=== PATIENT | male | born 1995 | race Two or more races ===

== ENCOUNTER 2017-06-28 23:44 | Inpatient (IN) | payer MEDICAID ==
[~2017-06-28] VITALS: Ht 188 cm; Wt 95.3 kg
[2017-06-28 23:41] VITALS: BP 130/61
[2017-06-29 02:00] LABS: BASOPHILS % (AUTO) 0.7 % (0.0-2.0); EOSINOPHILS % (AUTO) 6.5 % (0.0-3.0); LYMPHOCYTES % (AUTO) 20.1 % (20.0-45.0); MEAN CORPUSCULAR HEMOGLOBIN 28.9 PG (27.0-31.0); MEAN CORPUSCULAR HGB CONC 31.3 G/DL (32.0-36.0); MEAN CORPUSCULAR VOLUME 92 FL (80-99); MEAN PLATELET VOLUME 6.6 FL (6.5-10.1); MONOCYTES % (AUTO) 7.4 % (1.0-10.0); NEUTROPHILS % (AUTO) 65.3 % (45.0-75.0); PLATELET COUNT 339 K/UL (150-450); RED BLOOD COUNT 4.64 M/UL (4.70-6.10); RED CELL DISTRIBUTION WIDTH 13.4 % (11.6-14.8); WHITE BLOOD COUNT 9.9 K/UL (4.8-10.8)
[2017-06-29 02:16] LABS: ALANINE AMINOTRANSFERASE 19 U/L (3-41); ALBUMIN/GLOBULIN RATIO 1.1 (1.0-2.7); ANION GAP 12 (5-15); ASPARTATE AMINO TRANSFERASE 22 U/L (5-40); CALCIUM 9.3 mg/dL (8.6-10.2); CARBON DIOXIDE 28 mEQ/L (20-30); CHLORIDE 100 mEQ/L (98-107); CREATININE 0.6 mg/dL (0.7-1.2); GLOMERULAR FILTRATION RATE > 60 mL/min (>60); HEMOLYSIS 3; POTASSIUM 3.9 mEQ/L (3.4-4.9); SODIUM 140 mEQ/L (135-145); TOTAL PROTEIN 7.9 g/dL (6.6-8.7); TROPONIN I < 0.30 ng/mL (<=0.30)
[2017-06-29 02:26] LABS: CKMB 9.9 ng/mL (< 6.7)
[2017-06-29] MEDS ORDERED: HYDROmorphone 1mg/ml Carpuject IVP ONE (02:30)
[2017-06-29] MEDS ORDERED: UNOBMED (04:21)
[2017-06-29 04:45] VITALS: BP 121/60
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
[2017-06-29] MEDS ORDERED: LORazepam Inj 2mg/ml 1ml IV PRN (05:45)
[2017-06-29] MEDS ORDERED: Miralax 17gm pkt ORAL PRN (05:45)
[2017-06-29] MEDS ORDERED: Zolpidem 5mg tab ORAL PRN (05:45)
[2017-06-29] MEDS ORDERED: Mylanta II UD 30ml ORAL PRN (05:45)
[2017-06-29 06:00] LABS: KETONES,URINE NEGATIVE (NEGATIVE); LEUKOCYTE ESTERASE ,URINE 3+ (NEGATIVE); NITRITE,URINE NEGATIVE (NEGATIVE); PH,URINE 8 (4.5-8.0); PROTEIN,URINE 2+ (NEGATIVE); UROBILINOGEN,URINE NORMAL MG/DL (0.0-1.0)
[2017-06-29 06:13] LABS: APPEARANCE,URINE TURBID
[2017-06-29 06:14] LABS: BACTERIA,URINE MANY /HPF; WBC,URINE TNTC /HPF (0 - 0)
[2017-06-29] MEDS: HYDROmorphone 1mg/ml Carpuject IVP PRN ×6 (07:50→23:32)
[2017-06-29] MEDS: DiphenhydrAMINE 50mg/ml Inj IVP PRN ×3 (07:50→20:23)
[2017-06-29 08:00] VITALS: BP 107/61
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
[2017-06-29] MEDS: Heparin 5000 units/ml inj SUBQ SCH ×2 (10:15→20:24)
[2017-06-29 12:00] VITALS: BP 95/45
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
[2017-06-29 16:00] VITALS: BP 113/52
--- NOTE | 2017-06-29 16:18 | Consultation ---
Consult Note Consult Note id dic # [id number] BENJAMIN POTTER M.D. Jun 29, 2017 16:18
[2017-06-29 20:00] VITALS: BP 116/48
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
[2017-06-30] VITALS: BP 107/69
[2017-06-30] MEDS: HYDROmorphone 1mg/ml Carpuject IVP PRN ×7 (02:40→21:13)
[2017-06-30] MEDS: DiphenhydrAMINE 50mg/ml Inj IVP PRN ×4 (02:41→21:12)
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
[2017-06-30 04:00] VITALS: BP 106/54
[2017-06-30 08:00] VITALS: BP 122/62
--- NOTE | 2017-06-30 08:41 | General Progress Note ---
Progress Note Progress Note No further bleeding from stomal edge. If bleeding recurs, silver nitrate small applicator may control and stop bleeding. KIKA WEBBER Jun 30, 2017 08:41
--- NOTE | 2017-06-30 08:46 | Consultation ---
DATE OF CONSULTATION: INFECTIOUS DISEASES CONSULTATION CONSULTING PHYSICIAN: Ac Manuel M.D. REQUESTING PHYSICIAN: Salena Bonilla M.D. Reason For Consultation: Evaluation of the patient for possible wound infection and antibiotic management. History Of Present Illness: The patient is an unfortunate 22-year-old male with multiple medical problems as listed below, who was admitted to this medical center for management of the wound. The patient is not having any discharge from the area, fever, or chills. Infectious Diseases consultation has been requested for further evaluation of the patient for possible need for antibiotic treatment. PAST MEDICAL HISTORY: 1. . 2. Dysuria with incontinence requiring Mackay catheter. MEDICATIONS: Currently off antibiotics. ALLERGIES: Cephalexin and morphine. FAMILY HISTORY: Noncontributory. Review Of Systems: A 10-point review was done and except what is mentioned has been negative. PHYSICAL EXAMINATION: Vital Signs: Temperature 97.6 degrees, blood pressure 121/60, pulse 66, and respiratory rate 18. HEENT: No pale conjunctivae. No icterus. NECK: No lymphadenopathy. CHEST: Clear. HEART: S1 and S2. ABDOMEN: Soft. GENITOURINARY: Mackay catheter in place. EXTREMITIES: No cyanosis. Skin: The patient has stage IV decubitus in the sacral area. No discharge. No exudate. Assessment: The patient is a 22-year-old male with multiple medical problems as listed above, who has 1. Chronic sacral decubitus stage IV without signs of infection. 2. The patient is afebrile. Labs show white blood cells 9.9. PLAN: 1. We will monitor the patient off of antibiotics. 2. The patient may benefit from wound VAC placement. 3. Plastic surgery consultation. 4. Monitor the patient's clinical course and labs. 5. Based on those, we will do further recommendations. Thank you, Dr. Bonilla, for allowing me to participate in the care of this patient. I will follow the patient with you during this hospitalization. Ac Manuel M.D. DR: PHOEBE JOB#: [id number] CC:
[2017-06-30] MEDS: Heparin 5000 units/ml inj SUBQ SCH ×2 (08:57→21:14)
[2017-06-30 09:12] LABS: BASOPHILS % (AUTO) 0.7 % (0.0-2.0); EOSINOPHILS % (AUTO) 9.6 % (0.0-3.0); LYMPHOCYTES % (AUTO) 26.8 % (20.0-45.0); MEAN CORPUSCULAR HEMOGLOBIN 29.3 PG (27.0-31.0); MEAN CORPUSCULAR HGB CONC 31.7 G/DL (32.0-36.0); MEAN CORPUSCULAR VOLUME 92 FL (80-99); MEAN PLATELET VOLUME 7.1 FL (6.5-10.1); MONOCYTES % (AUTO) 8.6 % (1.0-10.0); NEUTROPHILS % (AUTO) 54.2 % (45.0-75.0); PLATELET COUNT 255 K/UL (150-450); RED BLOOD COUNT 3.99 M/UL (4.70-6.10); RED CELL DISTRIBUTION WIDTH 13.5 % (11.6-14.8); WHITE BLOOD COUNT 7.3 K/UL (4.8-10.8)
[2017-06-30 09:28] LABS: ALANINE AMINOTRANSFERASE 15 U/L (3-41); ALBUMIN/GLOBULIN RATIO 1.1 (1.0-2.7); ANION GAP 15 (5-15); ASPARTATE AMINO TRANSFERASE 19 U/L (5-40); CALCIUM 9.4 mg/dL (8.6-10.2); CARBON DIOXIDE 27 mEQ/L (20-30); CHLORIDE 98 mEQ/L (98-107); CREATININE 0.5 mg/dL (0.7-1.2); GLOMERULAR FILTRATION RATE > 60 mL/min (>60); HEMOLYSIS 2; SODIUM 140 mEQ/L (135-145); TOTAL PROTEIN 6.8 g/dL (6.6-8.7)
--- NOTE | 2017-06-30 10:45 | GI Progress Note ---
Assessment/Plan Problems: (1) Anemia ICD Codes: D64.9 - Anemia, unspecified SNOMED: 084927441 (2) Ostomy nurse consultation ICD Codes: Z71.89 - Other specified counseling SNOMED: 702692827, 320586121 Status: stable Status Narrative Discussed with Dr. Encinas. Assessment/Plan surgical recs noted >> no intervention at this time, patient educated on wound care. ostomy care daily/prn frequent turn q2 hours monitor H&H, prn transfusions anemia work up abx fu labs Subjective Subjective no recurrent bleed from ostomy site Objective Last 24 Hour Vital Signs Date Time Temp Pulse Resp B/P (MAP) Pulse Ox O2 Delivery O2 Flow Rate FiO2 06/30/17 08:00 97.7 57 18 122/62 97 Room Air 06/30/17 04:00 98.6 57 20 106/54 97 Room Air 06/30/17 00:00 99.0 61 18 107/69 97 Room Air 06/29/17 20:00 98.4 63 18 116/48 98 Room Air 06/29/17 16:00 97.7 65 18 113/52 97 Room Air 06/29/17 12:00 97.9 64 17 95/45 96 Room Air Laboratory Tests Test 06/30/17 09:00 White Blood Count 7.3 K/UL (4.8-10.8) Red Blood Count 3.99 M/UL (4.70-6.10) L Hemoglobin 11.7 G/DL (14.2-18.0) L Hematocrit 36.9 % (42.0-52.0) L Mean Corpuscular Volume 92 FL (80-99) Mean Corpuscular Hemoglobin 29.3 PG (27.0-31.0) Mean Corpuscular Hemoglobin Concent 31.7 G/DL (32.0-36.0) L Red Cell Distribution Width 13.5 % (11.6-14.8) Platelet Count 255 K/UL (150-450) Mean Platelet Volume 7.1 FL (6.5-10.1) Neutrophils (%) (Auto) 54.2 % (45.0-75.0) Lymphocytes (%) (Auto) 26.8 % (20.0-45.0) Monocytes (%) (Auto) 8.6 % (1.0-10.0) Eosinophils (%) (Auto) 9.6 % (0.0-3.0) H Basophils (%) (Auto) 0.7 % (0.0-2.0) Sodium Level 140 mEQ/L (135-145) Potassium Level 4.0 mEQ/L (3.4-4.9) Chloride Level 98 mEQ/L (98-107) Carbon Dioxide Level 27 mEQ/L (20-30) Anion Gap 15 (5-15) Blood Urea Nitrogen 13 mg/dL (7-23) Creatinine 0.5 mg/dL (0.7-1.2) L Estimat Glomerular Filtration Rate > 60 mL/min (>60) Glucose Level 103 mg/dL (74-106) Calcium Level 9.4 mg/dL (8.6-10.2) Total Bilirubin < 0.2 mg/dL (0.0-1.2) Aspartate Amino Transf (AST/SGOT) 19 U/L (5-40) Alanine Aminotransferase (ALT/SGPT) 15 U/L (3-41) Alkaline Phosphatase 100 U/L (40-129) Total Protein 6.8 g/dL (6.6-8.7) Albumin 3.6 g/dL (3.5-5.2) Globulin 3.2 g/dL Albumin/Globulin Ratio 1.1 (1.0-2.7) Thyroid Stimulating Hormone (TSH) 2.550 uIU/mL (0.300-4.500) Height (Feet): 6 Height (Inches): 2.00 Weight (Pounds): 210 General Appearance: no apparent distress, alert Cardiovascular: normal rate Respiratory/Chest: normal breath sounds, no respiratory distress Abdominal Exam: other - ostomy Reyna Milton N.P. Jun 30, 2017 10:45
[2017-06-30 12:00] VITALS: BP 132/72
[2017-06-30 16:00] VITALS: BP 130/77
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
[2017-06-30 20:00] VITALS: BP 121/66
--- NOTE | 2017-06-30 20:45 | Wound Care Consultation ---
Wound Assessment Wound Assessment #1: Wound Number: 1 Wound Present on Admission: Yes New Wound: No Status Change of Wound: No Wound Location Body Site Modif: left Wound Location Body Site: heel Wound Type: pressure ulcer Mina Test: Does not Mina Pressure Ulcer Stage: deep tissue injury Wound Thickness: Full Thickness Wound Length: 4.0 Wound Width: 4.0 Wound Depth: utd Percent of Wound Purple/Maroon: 100 Wound Drainage Amount: None Wound Drainage Odor: None/Absent Tissue Surrounding Wound: Intact Wound General Appearance: Reddened - maroon Wound Assessment #2: Wound Number: 2 Wound Present on Admission: Yes New Wound: No Status Change of Wound: No Wound Location Body Site Modif: right Wound Location Body Site: heel Wound Type: pressure ulcer Mina Test: Does not Mina Pressure Ulcer Stage: deep tissue injury Wound Thickness: Full Thickness Wound Length: 4.5 Wound Width: 4.5 Wound Depth: utd Percent of Wound Purple/Maroon: 100 Wound Drainage Amount: None Wound Drainage Odor: None/Absent Tissue Surrounding Wound: Erythemic Wound General Appearance: Reddened - maroon Wound Assessment #3: Wound Number: 3 Wound Present on Admission: Yes New Wound: No Status Change of Wound: No Wound Location Body Site Modif: left, lateral Wound Location Body Site: metatarsal head - 5th Wound Type: pressure ulcer Mina Test: Does not Mina Pressure Ulcer Stage: II Wound Thickness: Partial Thickness Wound Length: 0.5 Wound Width: 0.3 Wound Depth: 0.1 Percent of Wound [place]/Red: 100 Wound Drainage Description: Serosanguineous Wound Drainage Amount: Scant Wound Drainage Odor: None/Absent Tissue Surrounding Wound: Erythemic Wound General Appearance: Reddened, Draining Wound Assessment #4: Wound Number: 4 Wound Present on Admission: Yes New Wound: No Status Change of Wound: No Wound Location Body Site Modif: left, lateral Wound Location Body Site: malleolus/ankle Wound Type: pressure ulcer Mina Test: Does not Mina Pressure Ulcer Stage: III - healing Wound Thickness: Full Thickness Wound Length: 2.5 Wound Width: 1.5 Wound Depth: less than 0.1 Percent of Wound [place]/Red: 100 Wound Drainage Description: Serosanguineous Wound Drainage Amount: Scant Wound Drainage Odor: None/Absent Tissue Surrounding Wound: Erythemic Wound General Appearance: Reddened Wound Assessment #5: Wound Number: 5 Wound Present on Admission: Yes New Wound: No Status Change of Wound: No Wound Location Body Site Modif: left, mid Wound Location Body Site: foot Wound Type: pressure ulcer Mina Test: Does not Mina Pressure Ulcer Stage: deep tissue injury Wound Thickness: Full Thickness Wound Length: 1.0 Wound Width: 1.0 Wound Depth: utd Percent of Wound Purple/Maroon: 100 Wound Drainage Amount: None Wound Drainage Odor: None/Absent Tissue Surrounding Wound: Erythemic Wound General Appearance: Reddened - maroon Wound Assessment #6: Wound Number: 6 Wound Present on Admission: Yes New Wound: No Status Change of Wound: No Wound Location Body Site Modif: left Wound Location Body Site: ischial tuberosity Wound Type: pressure ulcer Mina Test: Does not Mina Pressure Ulcer Stage: IV/unstageable Wound Thickness: Full Thickness Wound Length: 4.5 Wound Width: 6.5 Wound Depth: 2.5 Percent of Wound [place]/Red: 90 Percent of Wound Bed Yellow/Wh: 10 Wound Drainage Description: Serosanguineous Wound Drainage Amount: Moderate Wound Drainage Odor: None/Absent Tissue Surrounding Wound: Macerated Wound Undermining at 12:00: 3.5 Wound Undermining at 6:00: 0.5 Wound General Appearance: Reddened, Draining, Muscle Visible Wound Assessment #7: Wound Number: 7 Wound Present on Admission: Yes New Wound: No Status Change of Wound: No Wound Location Body Site Modif: right Wound Location Body Site: ischial tuberosity Wound Type: pressure ulcer Mina Test: Does not Mina Pressure Ulcer Stage: IV/unstageable Wound Thickness: Full Thickness Wound Length: 4.0 Wound Width: 4.0 Wound Depth: 2.0 Percent of Wound [place]/Red: 100 Wound Drainage Description: Serosanguineous Wound Drainage Amount: Moderate Wound Drainage Odor: None/Absent Tissue Surrounding Wound: Macerated Wound General Appearance: Reddened, Draining Wound Assessment #8: Wound Number: 8 Wound Present on Admission: Yes New Wound: No Status Change of Wound: No Wound Location Body Site Modif: mid Wound Location Body Site: sacral Wound Type: pressure ulcer Mina Test: Does not Mina Pressure Ulcer Stage: III - scattered Wound Thickness: Full Thickness Wound Length: 4.0 Wound Width: 5.0 Wound Depth: 0.2 Percent of Wound [place]/Red: 100 Wound Drainage Description: Serosanguineous Wound Drainage Amount: Scant Wound Drainage Odor: None/Absent Tissue Surrounding Wound: Erythemic Wound General Appearance: Reddened, Draining Wound Assessment #9: Wound Number: 9 Wound Present on Admission: Yes New Wound: No Status Change of Wound: No Wound Location Body Site Modif: left Wound Location Body Site: buttocks Wound Type: pressure ulcer Mina Test: Does not Mina Pressure Ulcer Stage: IV/unstageable Wound Thickness: Full Thickness Wound Length: 2.0 Wound Width: 2.0 Wound Depth: 0.2 Percent of Wound [place]/Red: 90 Percent of Wound Bed Yellow/Wh: 10 Wound Drainage Description: Serosanguineous Wound Drainage Amount: Scant Wound Drainage Odor: None/Absent Tissue Surrounding Wound: Macerated Wound General Appearance: Reddened, Draining Wound Assessment #10: Wound Number: 10 Wound Present on Admission: Yes New Wound: No Status Change of Wound: No Wound Location Body Site Modif: right Wound Location Body Site: buttocks Wound Type: pressure ulcer Mina Test: Does not Mina Pressure Ulcer Stage: III Wound Thickness: Full Thickness Wound Length: 1.5 Wound Width: 2.0 Wound Depth: 0.2 Percent of Wound [place]/Red: 100 Wound Drainage Description: Serosanguineous Wound Drainage Amount: Moderate Wound Drainage Odor: None/Absent Tissue Surrounding Wound: Macerated Wound General Appearance: Reddened, Draining Wound Assessment #11: Wound Number: 11 Wound Present on Admission: Yes New Wound: No Status Change of Wound: No Wound Location Body Site Modif: left, right, dorsal, plantar Wound Location Body Site: foot - and toes Wound Type: other Mina Test: Does not Mina Wound Drainage Description: Serosanguineous Wound Drainage Amount: Scant Wound Drainage Odor: None/Absent Wound Assessment #12: Wound Number: 12 Wound Comment #1 Left heel DTI pressure ulcer #2 Right heel DTI pressure ulcer #3 Left lateral 5th metatarsal head stage II pressure ulcer #4 Left lateral malleolus healing stage III pressure ulcer #5 Left lateral mid foot DTI pressure ulcer #6 Sacral scattered stage III pressure ulcer #7 Left buttock stage IV pressure ulcer #8 Right buttock stage III pressure ulcer #9 Left ischial tuberosity stage IV pressure ulcer #10 Right ischial tuberosity stage IV pressure ulcer #11 Left and right plantar and dorsal foot with papules #12 Multiple generalized scar and dry scabs Recommendation -Left lateral malleolus healing stage III pressure ulcer, Sacral scattered stage III pressure ulcer, Left buttock stage IV pressure ulcer, Right buttock stage III pressure ulcer, Left ischial tuberosity stage IV pressure ulcer and Right ischial tuberosity stage IV pressure ulcer, Cleanse with saline, pat dry, apply Triad cream to minal wound area, apply Therahoney to wound bed, apply calcium alginate, cover with bordered gauze daily and PRN soiled/dislodged - Left lateral 5th metatarsal head stage II pressure ulcer, Cleanse with saline, pat dry, apply Triad cream, cover with bordered gauze daily and PRN soiled/dislodged -Local wound care per protocol for DTI -Low air loss mattress -Optimize nutrition -Keep clean and dry -Turn and reposition -Offload both heels -Heel protector on both heels -Assess and f/u accordingly for any changes MARIE CORDOVA RN Jun 30, 2017 20:45
--- NOTE | 2017-06-30 21:08 | Infectious Diseases Prog Note ---
Assessment/Plan Assessment/Plan Assessment: The patient is a 22-year-old male with Chronic sacral decubitus stage IV without signs of infection. afebrile. UCx : GNR : Asymptomatic , colonizer bleeding around ostomy site. Paraplegia Dysuria with incontinence requiring Mackay catheter PLAN: con to monitor off of antibiotics. The patient may benefit from wound VAC placement. Plastic surgery consultation Monitor the patient's clinical course and labs. Subjective Constitutional: Denies: no symptoms, fever, chills, fatigue, anorexia, drenching sweats, other Allergies: Coded Allergies: CEPHALEXIN (Verified Allergy, Unknown, 06/28/17) MORPHINE (Verified Allergy, Unknown, 06/28/17) Objective Vital Signs Last 24 Hour Vital Signs Date Time Temp Pulse Resp B/P (MAP) Pulse Ox O2 Delivery O2 Flow Rate FiO2 06/30/17 20:00 98.6 70 20 121/66 98 Room Air 06/30/17 16:00 98.0 62 20 130/77 96 Room Air 06/30/17 12:00 98.1 58 18 132/72 98 Room Air 06/30/17 08:00 97.7 57 18 122/62 97 Room Air 06/30/17 04:00 98.6 57 20 106/54 97 Room Air 06/30/17 00:00 99.0 61 18 107/69 97 Room Air Height (Feet): 6 Height (Inches): 2.00 Weight (Pounds): 210 HEENT: anicteric Respiratory/Chest: no respiratory distress Cardiovascular: regularly irregular Abdomen: no organomegaly Microbiology Date/Time Source Procedure Growth Status 06/29/17 01:40 Blood Blood Culture - Preliminary NO GROWTH AFTER 24 HOURS Resulted 06/29/17 01:20 Blood Blood Culture - Preliminary NO GROWTH AFTER 24 HOURS Resulted 06/29/17 04:24 Nasal Nares MRSA Culture - Final Staphylococcus Aureus - Mrsa Complete 06/29/17 04:24 Urine,Clean Catch Urine Culture - Preliminary Gram Negative Bacillus 1 Resulted 06/29/17 06:30 Buttock Left Gram Stain - Final Resulted 06/29/17 06:30 Buttock Left Wound Culture Pending Resulted Laboratory Tests Test 06/30/17 09:00 White Blood Count 7.3 K/UL (4.8-10.8) Red Blood Count 3.99 M/UL (4.70-6.10) L Hemoglobin 11.7 G/DL (14.2-18.0) L Hematocrit 36.9 % (42.0-52.0) L Mean Corpuscular Volume 92 FL (80-99) Mean Corpuscular Hemoglobin 29.3 PG (27.0-31.0) Mean Corpuscular Hemoglobin Concent 31.7 G/DL (32.0-36.0) L Red Cell Distribution Width 13.5 % (11.6-14.8) Platelet Count 255 K/UL (150-450) Mean Platelet Volume 7.1 FL (6.5-10.1) Neutrophils (%) (Auto) 54.2 % (45.0-75.0) Lymphocytes (%) (Auto) 26.8 % (20.0-45.0) Monocytes (%) (Auto) 8.6 % (1.0-10.0) Eosinophils (%) (Auto) 9.6 % (0.0-3.0) H Basophils (%) (Auto) 0.7 % (0.0-2.0) Sodium Level 140 mEQ/L (135-145) Potassium Level 4.0 mEQ/L (3.4-4.9) Chloride Level 98 mEQ/L (98-107) Carbon Dioxide Level 27 mEQ/L (20-30) Anion Gap 15 (5-15) Blood Urea Nitrogen 13 mg/dL (7-23) Creatinine 0.5 mg/dL (0.7-1.2) L Estimat Glomerular Filtration Rate > 60 mL/min (>60) Glucose Level 103 mg/dL (74-106) Calcium Level 9.4 mg/dL (8.6-10.2) Total Bilirubin < 0.2 mg/dL (0.0-1.2) Aspartate Amino Transf (AST/SGOT) 19 U/L (5-40) Alanine Aminotransferase (ALT/SGPT) 15 U/L (3-41) Alkaline Phosphatase 100 U/L (40-129) Total Protein 6.8 g/dL (6.6-8.7) Albumin 3.6 g/dL (3.5-5.2) Globulin 3.2 g/dL Albumin/Globulin Ratio 1.1 (1.0-2.7) Thyroid Stimulating Hormone (TSH) 2.550 uIU/mL (0.300-4.500) Current Medications Medications (Trade) Dose Ordered Sig/Pedro Route PRN Reason Start Time Stop Time Status Last Admin Dose Admin Acetaminophen (Tylenol) 650 mg Q4H PRN ORAL fever 06/29/17 05:45 07/29/17 05:44 Al Hydroxide/Mg Hydroxide (Mylanta II) 30 ml Q6H PRN ORAL dyspepsia 06/29/17 05:45 07/29/17 05:44 Baclofen (Lioresal) 10 mg THREE TIMES A DAY PRN ORAL muscle spasm 06/29/17 09:00 07/29/17 08:59 Clotrimazole (Lotrimin) 1 applic EVERY 12 HOURS TOPIC 06/30/17 21:00 07/30/17 20:59 UNV Dextrose (Dextrose 50%) STAT PRN IV Hypoglycemia 06/29/17 05:45 07/29/17 05:44 Diphenhydramine HCl (Benadryl) 25 mg Q6H PRN IVP Itching 06/29/17 08:00 07/29/17 07:59 06/30/17 15:05 Gabapentin (Neurontin) 100 mg THREE TIMES A DAY ORAL 06/29/17 09:00 07/29/17 08:59 06/30/17 17:14 Heparin Sodium (Porcine) (Heparin 5000 units/ml) 5,000 units EVERY 12 HOURS SUBQ 06/29/17 09:00 07/29/17 08:59 06/30/17 08:57 Hydrocortisone (Hydrocortisone) 1 applic Q6H PRN TOPIC Itching 06/30/17 18:00 07/30/17 17:59 Hydromorphone HCl (Dilaudid) 1 mg Q3H PRN IVP For Pain 06/29/17 08:00 07/06/17 07:59 06/30/17 18:15 Lorazepam (Ativan 2mg/ml 1ml) 0.5 mg Q4H PRN IV For Anxiety 06/29/17 05:45 07/06/17 05:44 Ondansetron HCl (Zofran) 4 mg Q6H PRN IVP Nausea & Vomiting 06/29/17 05:45 07/29/17 05:44 Polyethylene Glycol (Miralax) 17 gm HSPRN PRN ORAL Constipation 9/26/17 05:45 07/29/17 05:44 Zolpidem Tartrate (Ambien) 5 mg HSPRN PRN ORAL Insomnia 06/29/17 05:45 07/06/17 05:44 BENJAMIN POTTER M.D. Jun 30, 2017 21:08
[2017-06-30] MEDS: Hydrocortisone 2.5% Oint 30gm TOPIC PRN (21:44)
[2017-07-01] VITALS: BP 103/52
[2017-07-01] MEDS: HYDROmorphone 1mg/ml Carpuject IVP PRN ×8 (00:06→21:57)
[2017-07-01] MEDS: DiphenhydrAMINE 50mg/ml Inj IVP PRN ×4 (03:03→21:57)
[2017-07-01 04:00] VITALS: BP 101/53
[2017-07-01 07:21] LABS: BASOPHILS % (AUTO) 0.6 % (0.0-2.0); EOSINOPHILS % (AUTO) 10.4 % (0.0-3.0); LYMPHOCYTES % (AUTO) 28.7 % (20.0-45.0); MEAN CORPUSCULAR HGB CONC 32.3 G/DL (32.0-36.0); MEAN CORPUSCULAR VOLUME 93 FL (80-99); MEAN PLATELET VOLUME 6.9 FL (6.5-10.1); MONOCYTES % (AUTO) 10.6 % (1.0-10.0); NEUTROPHILS % (AUTO) 49.6 % (45.0-75.0); PLATELET COUNT 276 K/UL (150-450); RED BLOOD COUNT 4.01 M/UL (4.70-6.10); RED CELL DISTRIBUTION WIDTH 13.8 % (11.6-14.8); WHITE BLOOD COUNT 6.3 K/UL (4.8-10.8)
[2017-07-01 07:40] LABS: ANION GAP 15 (5-15); CALCIUM 9.5 mg/dL (8.6-10.2); CARBON DIOXIDE 26 mEQ/L (20-30); CHLORIDE 101 mEQ/L (98-107); CREATININE 0.6 mg/dL (0.7-1.2); GLOMERULAR FILTRATION RATE > 60 mL/min (>60); SODIUM 142 mEQ/L (135-145)
[2017-07-01 07:42] LABS: FERRITIN 62 ng/mL (10-230)
[2017-07-01 08:00] VITALS: BP 111/51
[2017-07-01 08:28] LABS: RETICULOCYTE COUNT 1.9 % (0.0-2.0)
[2017-07-01] MEDS: Heparin 5000 units/ml inj SUBQ SCH ×2 (09:08→20:21)
[2017-07-01 09:09] LABS: HEMOLYSIS 0; IRON 82 ug/dL (59-158); TOTAL IRON BINDING CAPACITY 292 ug/dL (250-400)
--- NOTE | 2017-07-01 09:45 | General Progress Note ---
Progress Note Progress Note Surgery: no bleeding from ostomy site. states he is doing well. standard ostomy care and management. thank you Senthil Armstrong Jul 01, 2017 09:45
--- NOTE | 2017-07-01 11:27 | GI Progress Note ---
Assessment/Plan Problems: (1) Anemia ICD Codes: D64.9 - Anemia, unspecified SNOMED: 743288999 (2) Ostomy nurse consultation ICD Codes: Z71.89 - Other specified counseling SNOMED: 200526052, 700880111 Status: stable Status Narrative Discussed with Dr. Encinas. Assessment/Plan surgical recs noted >> no intervention at this time, patient educated on wound care. ostomy care daily/prn frequent turn q2 hours monitor H&H, prn transfusions anemia work up >> unremarkable abx fu labs Subjective Subjective no recurrent bleed from ostomy site Objective Last 24 Hour Vital Signs Date Time Temp Pulse Resp B/P (MAP) Pulse Ox O2 Delivery O2 Flow Rate FiO2 07/01/17 08:00 97.7 55 18 111/51 97 Room Air 07/01/17 04:00 98.3 64 18 101/53 98 Room Air 07/01/17 00:00 98.4 63 19 103/52 98 Room Air 06/30/17 20:00 98.6 70 20 121/66 98 Room Air 06/30/17 16:00 98.0 62 20 130/77 96 Room Air 06/30/17 12:00 98.1 58 18 132/72 98 Room Air Laboratory Tests Test 07/01/17 05:30 White Blood Count 6.3 K/UL (4.8-10.8) Red Blood Count 4.01 M/UL (4.70-6.10) L Hemoglobin 12.0 G/DL (14.2-18.0) L Hematocrit 37.2 % (42.0-52.0) L Mean Corpuscular Volume 93 FL (80-99) Mean Corpuscular Hemoglobin 30.0 PG (27.0-31.0) Mean Corpuscular Hemoglobin Concent 32.3 G/DL (32.0-36.0) Red Cell Distribution Width 13.8 % (11.6-14.8) Platelet Count 276 K/UL (150-450) Mean Platelet Volume 6.9 FL (6.5-10.1) Neutrophils (%) (Auto) 49.6 % (45.0-75.0) Lymphocytes (%) (Auto) 28.7 % (20.0-45.0) Monocytes (%) (Auto) 10.6 % (1.0-10.0) H Eosinophils (%) (Auto) 10.4 % (0.0-3.0) H Basophils (%) (Auto) 0.6 % (0.0-2.0) Reticulocyte Count 1.9 % (0.0-2.0) Sodium Level 142 mEQ/L (135-145) Potassium Level 4.0 mEQ/L (3.4-4.9) Chloride Level 101 mEQ/L (98-107) Carbon Dioxide Level 26 mEQ/L (20-30) Anion Gap 15 (5-15) Blood Urea Nitrogen 16 mg/dL (7-23) Creatinine 0.6 mg/dL (0.7-1.2) L Estimat Glomerular Filtration Rate > 60 mL/min (>60) Glucose Level 98 mg/dL (74-106) Calcium Level 9.5 mg/dL (8.6-10.2) Iron Level 82 ug/dL (59-158) Total Iron Binding Capacity 292 ug/dL (250-400) Percent Iron Saturation 28 % (15-50) Unsaturated Iron Binding 210 ug/dL (112-346) Ferritin 62 ng/mL (10-230) Vitamin B12 Level 332 pg/mL (211-946) Folate Pending Thyroid Stimulating Hormone (TSH) 3.520 uIU/mL (0.300-4.500) Free Thyroxine 1.44 ng/dL (0.86-1.85) Height (Feet): 6 Height (Inches): 2.00 Weight (Pounds): 210 General Appearance: no apparent distress, alert Cardiovascular: normal rate Respiratory/Chest: normal breath sounds, no respiratory distress Abdominal Exam: soft, other - ostomy site Reyna Milton N.P. Jul 01, 2017 11:27
[2017-07-01 12:00] VITALS: BP 105/44
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
[2017-07-01 16:00] VITALS: BP 108/61
[2017-07-01 20:00] VITALS: BP 93/57
--- NOTE | 2017-07-01 20:19 | Infectious Diseases Prog Note ---
Assessment/Plan Assessment/Plan Assessment: The patient is a 22-year-old male with Chronic sacral decubitus stage IV without signs of infection. afebrile. UCx : ESBL E coli : Asymptomatic , colonizer bleeding around ostomy site. Paraplegia Dysuria with incontinence requiring Mackay catheter PLAN: con to monitor off of antibiotics. The patient may benefit from wound VAC placement. Plastic surgery consultation Monitor the patient's clinical course and labs. Subjective Allergies: Coded Allergies: CEPHALEXIN (Verified Allergy, Unknown, 06/28/17) MORPHINE (Verified Allergy, Unknown, 06/28/17) Objective Vital Signs Last 24 Hour Vital Signs Date Time Temp Pulse Resp B/P (MAP) Pulse Ox O2 Delivery O2 Flow Rate FiO2 07/01/17 20:00 98.1 62 18 93/57 97 Room Air 07/01/17 19:16 97.9 07/01/17 16:00 97.9 61 18 108/61 97 Room Air 07/01/17 12:00 97.7 69 19 105/44 96 Room Air 07/01/17 08:00 97.7 55 18 111/51 97 Room Air 07/01/17 04:00 98.3 64 18 101/53 98 Room Air 07/01/17 00:00 98.4 63 19 103/52 98 Room Air Height (Feet): 6 Height (Inches): 2.00 Weight (Pounds): 210 Microbiology Date/Time Source Procedure Growth Status 06/29/17 01:40 Blood Blood Culture - Preliminary NO GROWTH AFTER 48 HOURS Resulted 06/29/17 01:20 Blood Blood Culture - Preliminary NO GROWTH AFTER 48 HOURS Resulted 06/29/17 04:24 Nasal Nares MRSA Culture - Final Staphylococcus Aureus - Mrsa Complete 06/29/17 04:24 Urine,Clean Catch Urine Culture - Final Klebsiella Pneumoniae Esbl Complete 06/29/17 06:30 Buttock Left Gram Stain - Final Resulted 06/29/17 06:30 Wound Culture - Preliminary Staphylococcus Aureus Resulted 06/29/17 04:24 Rectum VRE Culture - Final Enterococcus Faecium - Vre Complete Laboratory Tests Test 07/01/17 05:30 White Blood Count 6.3 K/UL (4.8-10.8) Red Blood Count 4.01 M/UL (4.70-6.10) L Hemoglobin 12.0 G/DL (14.2-18.0) L Hematocrit 37.2 % (42.0-52.0) L Mean Corpuscular Volume 93 FL (80-99) Mean Corpuscular Hemoglobin 30.0 PG (27.0-31.0) Mean Corpuscular Hemoglobin Concent 32.3 G/DL (32.0-36.0) Red Cell Distribution Width 13.8 % (11.6-14.8) Platelet Count 276 K/UL (150-450) Mean Platelet Volume 6.9 FL (6.5-10.1) Neutrophils (%) (Auto) 49.6 % (45.0-75.0) Lymphocytes (%) (Auto) 28.7 % (20.0-45.0) Monocytes (%) (Auto) 10.6 % (1.0-10.0) H Eosinophils (%) (Auto) 10.4 % (0.0-3.0) H Basophils (%) (Auto) 0.6 % (0.0-2.0) Reticulocyte Count 1.9 % (0.0-2.0) Sodium Level 142 mEQ/L (135-145) Potassium Level 4.0 mEQ/L (3.4-4.9) Chloride Level 101 mEQ/L (98-107) Carbon Dioxide Level 26 mEQ/L (20-30) Anion Gap 15 (5-15) Blood Urea Nitrogen 16 mg/dL (7-23) Creatinine 0.6 mg/dL (0.7-1.2) L Estimat Glomerular Filtration Rate > 60 mL/min (>60) Glucose Level 98 mg/dL (74-106) Calcium Level 9.5 mg/dL (8.6-10.2) Iron Level 82 ug/dL (59-158) Total Iron Binding Capacity 292 ug/dL (250-400) Percent Iron Saturation 28 % (15-50) Unsaturated Iron Binding 210 ug/dL (112-346) Ferritin 62 ng/mL (10-230) Vitamin B12 Level 332 pg/mL (211-946) Folate Pending Thyroid Stimulating Hormone (TSH) 3.520 uIU/mL (0.300-4.500) Free Thyroxine 1.44 ng/dL (0.86-1.85) Current Medications Medications (Trade) Dose Ordered Sig/Pedro Route PRN Reason Start Time Stop Time Status Last Admin Dose Admin Acetaminophen (Tylenol) 650 mg Q4H PRN ORAL fever 06/29/17 05:45 07/29/17 05:44 Al Hydroxide/Mg Hydroxide (Mylanta II) 30 ml Q6H PRN ORAL dyspepsia 06/29/17 05:45 07/29/17 05:44 Baclofen (Lioresal) 10 mg THREE TIMES A DAY PRN ORAL muscle spasm 06/29/17 09:00 07/29/17 08:59 Clotrimazole (Lotrimin) 1 applic EVERY 12 HOURS TOPIC 06/30/17 21:30 07/30/17 21:29 07/01/17 09:05 Dextrose (Dextrose 50%) STAT PRN IV Hypoglycemia 06/29/17 05:45 07/29/17 05:44 Diphenhydramine HCl (Benadryl) 25 mg Q6H PRN IVP Itching 06/29/17 08:00 07/29/17 07:59 07/01/17 16:02 Gabapentin (Neurontin) 100 mg THREE TIMES A DAY ORAL 06/29/17 09:00 07/29/17 08:59 07/01/17 17:38 Heparin Sodium (Porcine) (Heparin 5000 units/ml) 5,000 units EVERY 12 HOURS SUBQ 06/29/17 09:00 07/29/17 08:59 07/01/17 09:08 Hydrocortisone (Hydrocortisone) 1 applic Q6H PRN TOPIC Itching 06/30/17 18:00 07/30/17 17:59 06/30/17 21:44 Hydromorphone HCl (Dilaudid) 1 mg Q3H PRN IVP For Pain 06/29/17 08:00 07/06/17 07:59 07/01/17 18:46 Lorazepam (Ativan 2mg/ml 1ml) 0.5 mg Q4H PRN IV For Anxiety 06/29/17 05:45 07/06/17 05:44 Ondansetron HCl (Zofran) 4 mg Q6H PRN IVP Nausea & Vomiting 06/29/17 05:45 07/29/17 05:44 Polyethylene Glycol (Miralax) 17 gm HSPRN PRN ORAL Constipation 06/29/17 05:45 07/29/17 05:44 Zolpidem Tartrate (Ambien) 5 mg HSPRN PRN ORAL Insomnia 06/29/17 05:45 07/06/17 05:44 BENJAMIN POTTER M.D. Jul 01, 2017 20:19
[2017-07-01] MEDS: Hydrocortisone 2.5% Oint 30gm TOPIC PRN (20:20)
[2017-07-02] VITALS: BP 111/48
[2017-07-02] MEDS: HYDROmorphone 1mg/ml Carpuject IVP PRN ×5 (01:22→13:32)
[2017-07-02 04:00] VITALS: BP 121/46
[2017-07-02] MEDS: DiphenhydrAMINE 50mg/ml Inj IVP PRN ×4 (04:17→23:08)
[2017-07-02 08:00] VITALS: BP 121/70
[2017-07-02] MEDS: Heparin 5000 units/ml inj SUBQ SCH ×2 (08:06→21:21)
[2017-07-02 10:25] LABS: BASOPHILS % (AUTO) 1.2 % (0.0-2.0); EOSINOPHILS % (AUTO) 10.2 % (0.0-3.0); LYMPHOCYTES % (AUTO) 29.3 % (20.0-45.0); MEAN CORPUSCULAR HGB CONC 31.4 G/DL (32.0-36.0); MEAN CORPUSCULAR VOLUME 92 FL (80-99); MEAN PLATELET VOLUME 6.6 FL (6.5-10.1); NEUTROPHILS % (AUTO) 50.3 % (45.0-75.0); PLATELET COUNT 256 K/UL (150-450); RED BLOOD COUNT 4.35 M/UL (4.70-6.10); RED CELL DISTRIBUTION WIDTH 13.4 % (11.6-14.8); WHITE BLOOD COUNT 5.7 K/UL (4.8-10.8)
[2017-07-02 11:08] LABS: ANION GAP 11 (5-15); CALCIUM 9.5 mg/dL (8.6-10.2); CARBON DIOXIDE 26 mEQ/L (20-30); CHLORIDE 99 mEQ/L (98-107); CREATININE 0.6 mg/dL (0.7-1.2); GLOMERULAR FILTRATION RATE > 60 mL/min (>60); HEMOLYSIS 49; POTASSIUM 4.1 mEQ/L (3.4-4.9); SODIUM 136 mEQ/L (135-145)
--- NOTE | 2017-07-02 11:28 | GI Progress Note ---
Assessment/Plan Problems: (1) Anemia ICD Codes: D64.9 - Anemia, unspecified SNOMED: 175981494 (2) Ostomy nurse consultation ICD Codes: Z71.89 - Other specified counseling SNOMED: 477982237, [id number] Status: stable, unchanged Status Narrative Discussed with Dr. Encinas. Assessment/Plan surgical recs noted >> no intervention at this time, patient educated on wound care. ostomy care daily/prn frequent turn q2 hours stable H&H, prn transfusions anemia work up >> unremarkable abx fu labs Subjective Subjective no recurrent bleed from ostomy site Objective Last 24 Hour Vital Signs Date Time Temp Pulse Resp B/P (MAP) Pulse Ox O2 Delivery O2 Flow Rate FiO2 07/02/17 08:00 98.1 80 19 121/70 99 Room Air 07/02/17 04:48 98.1 07/02/17 04:00 98.5 68 18 121/46 98 Room Air 07/02/17 00:00 98.1 63 18 111/48 97 Room Air 07/01/17 20:00 98.1 62 18 93/57 97 Room Air 07/01/17 16:00 97.9 61 18 108/61 97 Room Air 07/01/17 12:00 97.7 69 19 105/44 96 Room Air Laboratory Tests Test 07/02/17 09:20 White Blood Count 5.7 K/UL (4.8-10.8) Red Blood Count 4.35 M/UL (4.70-6.10) L Hemoglobin 12.6 G/DL (14.2-18.0) L Hematocrit 40.2 % (42.0-52.0) L Mean Corpuscular Volume 92 FL (80-99) Mean Corpuscular Hemoglobin 29.0 PG (27.0-31.0) Mean Corpuscular Hemoglobin Concent 31.4 G/DL (32.0-36.0) L Red Cell Distribution Width 13.4 % (11.6-14.8) Platelet Count 256 K/UL (150-450) Mean Platelet Volume 6.6 FL (6.5-10.1) Neutrophils (%) (Auto) 50.3 % (45.0-75.0) Lymphocytes (%) (Auto) 29.3 % (20.0-45.0) Monocytes (%) (Auto) 9.0 % (1.0-10.0) Eosinophils (%) (Auto) 10.2 % (0.0-3.0) H Basophils (%) (Auto) 1.2 % (0.0-2.0) Sodium Level 136 mEQ/L (135-145) Potassium Level 4.1 mEQ/L (3.4-4.9) Chloride Level 99 mEQ/L (98-107) Carbon Dioxide Level 26 mEQ/L (20-30) Anion Gap 11 (5-15) Blood Urea Nitrogen 19 mg/dL (7-23) Creatinine 0.6 mg/dL (0.7-1.2) L Estimat Glomerular Filtration Rate > 60 mL/min (>60) Glucose Level 115 mg/dL (74-106) H Calcium Level 9.5 mg/dL (8.6-10.2) Height (Feet): 6 Height (Inches): 2.00 Weight (Pounds): 210 General Appearance: no apparent distress, alert Cardiovascular: normal rate Respiratory/Chest: normal breath sounds, no respiratory distress Abdominal Exam: normal bowel sounds, non tender, soft, other - ostomy Reyna Milton N.P. Jul 02, 2017 11:28
[2017-07-02 12:00] VITALS: BP 104/44
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
[2017-07-02] MEDS ORDERED: BACLOFEN10 MG ORAL (15:12)
[2017-07-02] MEDS ORDERED: GABAPENTIN100 MG ORAL (15:13)
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
[2017-07-02 16:00] VITALS: BP 100/56
[2017-07-02] MEDS: HYDROmorphone 2mg tab ORAL PRN (16:48)
[2017-07-02 20:00] VITALS: BP 124/63
[2017-07-03] VITALS: BP 122/52
[2017-07-03] MEDS: HYDROmorphone 2mg tab ORAL PRN ×3 (03:38→20:14)
[2017-07-03 04:00] VITALS: BP 120/64
[2017-07-03] MEDS: DiphenhydrAMINE 50mg/ml Inj IVP PRN ×4 (05:11→23:43)
--- NOTE | 2017-07-03 07:14 | General Progress Note ---
Progress Note Progress Note Pt underwent bedside debridement of decubiti yesterday vss/ no active bleeding from ostomy site. decubs clean. Laboratory Tests Test 07/02/17 09:20 White Blood Count 5.7 K/UL (4.8-10.8) Red Blood Count 4.35 M/UL (4.70-6.10) L Hemoglobin 12.6 G/DL (14.2-18.0) L Hematocrit 40.2 % (42.0-52.0) L Mean Corpuscular Volume 92 FL (80-99) Mean Corpuscular Hemoglobin 29.0 PG (27.0-31.0) Mean Corpuscular Hemoglobin Concent 31.4 G/DL (32.0-36.0) L Red Cell Distribution Width 13.4 % (11.6-14.8) Platelet Count 256 K/UL (150-450) Mean Platelet Volume 6.6 FL (6.5-10.1) Neutrophils (%) (Auto) 50.3 % (45.0-75.0) Lymphocytes (%) (Auto) 29.3 % (20.0-45.0) Monocytes (%) (Auto) 9.0 % (1.0-10.0) Eosinophils (%) (Auto) 10.2 % (0.0-3.0) H Basophils (%) (Auto) 1.2 % (0.0-2.0) Sodium Level 136 mEQ/L (135-145) Potassium Level 4.1 mEQ/L (3.4-4.9) Chloride Level 99 mEQ/L (98-107) Carbon Dioxide Level 26 mEQ/L (20-30) Anion Gap 11 (5-15) Blood Urea Nitrogen 19 mg/dL (7-23) Creatinine 0.6 mg/dL (0.7-1.2) L Estimat Glomerular Filtration Rate > 60 mL/min (>60) Glucose Level 115 mg/dL (74-106) H Calcium Level 9.5 mg/dL (8.6-10.2) present management LUCY RUIZ Jul 03, 2017 07:14
[2017-07-03] MEDS: Heparin 5000 units/ml inj SUBQ SCH ×2 (09:00→20:18)
--- NOTE | 2017-07-03 10:13 | Infectious Diseases Prog Note ---
Assessment/Plan Assessment/Plan Assessment: The patient is a 22-year-old male with Chronic sacral decubitus stage IV without signs of infection. Wnd CX : MRSA, Dipht, ( Colonizer ) SP Debridement 07/02 afebrile. UCx : ESBL E coli : Asymptomatic , colonizer bleeding around ostomy site. Paraplegia Dysuria with incontinence requiring Mackay catheter PLAN: con to monitor off of antibiotics.. surgery con following Monitor CBC Monitor BMP. Subjective Constitutional: Denies: no symptoms, fever, chills, fatigue, anorexia, drenching sweats, other Allergies: Coded Allergies: CEPHALEXIN (Verified Allergy, Unknown, 06/28/17) MORPHINE (Verified Allergy, Unknown, 06/28/17) Objective Vital Signs Last 24 Hour Vital Signs Date Time Temp Pulse Resp B/P (MAP) Pulse Ox O2 Delivery O2 Flow Rate FiO2 07/03/17 04:37 97.7 07/03/17 04:00 97.7 79 18 120/64 97 Room Air 07/03/17 00:00 97.9 60 18 122/52 96 Room Air 07/02/17 20:00 98.8 64 18 124/63 99 Room Air 07/02/17 16:00 97.5 74 19 100/56 98 Room Air 07/02/17 12:00 98.1 62 18 104/44 98 Room Air Height (Feet): 6 Height (Inches): 2.00 Weight (Pounds): 210 HEENT: anicteric Respiratory/Chest: normal breath sounds Cardiovascular: regular rhythm Abdomen: soft, non tender Current Medications Medications (Trade) Dose Ordered Sig/Pedro Route PRN Reason Start Time Stop Time Status Last Admin Dose Admin Acetaminophen (Tylenol) 650 mg Q4H PRN ORAL fever 06/29/17 05:45 07/29/17 05:44 Al Hydroxide/Mg Hydroxide (Mylanta II) 30 ml Q6H PRN ORAL dyspepsia 06/29/17 05:45 07/29/17 05:44 Baclofen (Lioresal) 10 mg THREE TIMES A DAY PRN ORAL muscle spasm 06/29/17 09:00 07/29/17 08:59 Clotrimazole (Lotrimin) 1 applic EVERY 12 HOURS TOPIC 06/30/17 21:30 07/30/17 21:29 07/02/17 21:21 Dextrose (Dextrose 50%) STAT PRN IV Hypoglycemia 06/29/17 05:45 07/29/17 05:44 Diphenhydramine HCl (Benadryl) 25 mg Q6H PRN IVP Itching 06/29/17 08:00 07/29/17 07:59 07/03/17 05:11 Gabapentin (Neurontin) 100 mg THREE TIMES A DAY ORAL 06/29/17 09:00 07/29/17 08:59 07/02/17 17:56 Heparin Sodium (Porcine) (Heparin 5000 units/ml) 5,000 units EVERY 12 HOURS SUBQ 06/29/17 09:00 07/29/17 08:59 07/02/17 21:21 Hydrocortisone (Hydrocortisone) 1 applic Q6H PRN TOPIC Itching 06/30/17 18:00 07/30/17 17:59 07/01/17 20:20 Hydromorphone HCl (Dilaudid) 2 mg Q4H PRN ORAL PAIN 4-10 07/02/17 15:15 07/09/17 15:14 07/03/17 03:38 Lorazepam (Ativan 2mg/ml 1ml) 0.5 mg Q4H PRN IV For Anxiety 06/29/17 05:45 07/06/17 05:44 Ondansetron HCl (Zofran) 4 mg Q6H PRN IVP Nausea & Vomiting 06/29/17 05:45 07/29/17 05:44 Polyethylene Glycol (Miralax) 17 gm HSPRN PRN ORAL Constipation 06/29/17 05:45 07/29/17 05:44 Zolpidem Tartrate (Ambien) 5 mg HSPRN PRN ORAL Insomnia 06/29/17 05:45 07/06/17 05:44 BENJAMIN POTTER M.D. Jul 03, 2017 10:13
[2017-07-03 12:05] VITALS: BP 129/57
[2017-07-03] MEDS: Hydrocortisone 2.5% Oint 30gm TOPIC PRN (13:25)
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
[2017-07-03 15:42] VITALS: BP 116/59
[2017-07-03 20:00] VITALS: BP 138/70
[2017-07-04] VITALS: BP 108/59
[2017-07-04] MEDS: HYDROmorphone 2mg tab ORAL PRN ×4 (00:15→23:58)
[2017-07-04 04:00] VITALS: BP 121/65
[2017-07-04] MEDS: DiphenhydrAMINE 50mg/ml Inj IVP PRN ×4 (05:45→23:56)
[2017-07-04] MEDS: Heparin 5000 units/ml inj SUBQ SCH ×3 (09:00→21:41)
--- NOTE | 2017-07-04 09:27 | General Progress Note ---
Progress Note Progress Note s/p bedside debridement of decubiti by Dr Armstrong. slept poorly.Requesting morphine for dresing changes. Vital Sign - Last 24 Hours 07/03/17 07/03/17 07/03/17 07/04/17 12:05 15:42 20:00 00:00 Temp 98.3 98.1 99.1 98.9 Pulse 67 64 70 76 Resp 19 20 21 21 B/P (MAP) 129/57 116/59 138/70 108/59 Pulse Ox 97 98 97 98 O2 Delivery Room Air Room Air Room Air Room Air 07/04/17 04:00 Temp 98.2 Pulse 56 Resp 18 B/P (MAP) 121/65 Pulse Ox 98 O2 Delivery Room Air decubs very clean no drainage present management LUCY RUIZ Jul 04, 2017 09:27
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
--- NOTE | 2017-07-04 12:41 | Infectious Diseases Prog Note ---
Assessment/Plan Assessment/Plan A; Pyuria MRSA colonization Stage 3 buttock ulcers s/p debridement s/p diverting colostomy P; observe off antibiotic Subjective ROS Limited/Unobtainable: No Constitutional: Reports: no symptoms Respiratory: Reports: no symptoms Cardiovascular: Reports: no symptoms Gastrointestinal/Abdominal: Reports: no symptoms Genitourinary: Reports: other - incontinent Musculoskeletal: Reports: pain, other - hips Allergies: Coded Allergies: CEPHALEXIN (Verified Allergy, Unknown, 06/28/17) MORPHINE (Verified Allergy, Unknown, 06/28/17) Objective Vital Signs Last 24 Hour Vital Signs Date Time Temp Pulse Resp B/P (MAP) Pulse Ox O2 Delivery O2 Flow Rate FiO2 07/04/17 04:00 98.2 56 18 121/65 98 Room Air 07/04/17 00:00 98.9 76 21 108/59 98 Room Air 07/03/17 20:00 99.1 70 21 138/70 97 Room Air 07/03/17 15:42 98.1 64 20 116/59 98 Room Air Height (Feet): 6 Height (Inches): 2.00 Weight (Pounds): 210 General Appearance: no acute distress HEENT: mucous membranes moist Respiratory/Chest: lungs clear Cardiovascular: normal rate Abdomen: normal bowel sounds, soft, non tender, other - s/p colostomy Extremities: no edema, other - paraplegia Skin: ulcers, other - stage 3 buttocks Neurologic/Psychiatric: alert, oriented x 3, responsive, other - papaplegia, sensory level in mid thigh Current Medications Medications (Trade) Dose Ordered Sig/Pedro Route PRN Reason Start Time Stop Time Status Last Admin Dose Admin Acetaminophen (Tylenol) 650 mg Q4H PRN ORAL fever 06/29/17 05:45 07/29/17 05:44 Al Hydroxide/Mg Hydroxide (Mylanta II) 30 ml Q6H PRN ORAL dyspepsia 06/29/17 05:45 07/29/17 05:44 Baclofen (Lioresal) 10 mg THREE TIMES A DAY PRN ORAL muscle spasm 06/29/17 09:00 07/29/17 08:59 07/04/17 00:53 Clotrimazole (Lotrimin) 1 applic EVERY 12 HOURS TOPIC 06/30/17 21:30 07/30/17 21:29 07/04/17 09:23 Dextrose (Dextrose 50%) STAT PRN IV Hypoglycemia 06/29/17 05:45 07/29/17 05:44 Diphenhydramine HCl (Benadryl) 25 mg Q6H PRN IVP Itching 06/29/17 08:00 07/29/17 07:59 07/04/17 11:54 Gabapentin (Neurontin) 100 mg THREE TIMES A DAY ORAL 06/29/17 09:00 07/29/17 08:59 07/04/17 09:21 Heparin Sodium (Porcine) (Heparin 5000 units/ml) 5,000 units EVERY 12 HOURS SUBQ 06/29/17 09:00 07/29/17 08:59 07/03/17 20:18 Hydrocortisone (Hydrocortisone) 1 applic Q6H PRN TOPIC Itching 06/30/17 18:00 07/30/17 17:59 07/03/17 13:25 Hydromorphone HCl (Dilaudid) 2 mg Q4H PRN ORAL PAIN 4-10 07/02/17 15:15 07/09/17 15:14 07/04/17 05:42 Lorazepam (Ativan 2mg/ml 1ml) 0.5 mg Q4H PRN IV For Anxiety 06/29/17 05:45 07/06/17 05:44 Ondansetron HCl (Zofran) 4 mg Q6H PRN IVP Nausea & Vomiting 06/29/17 05:45 07/29/17 05:44 Polyethylene Glycol (Miralax) 17 gm HSPRN PRN ORAL Constipation 06/29/17 05:45 07/29/17 05:44 Zolpidem Tartrate (Ambien) 5 mg HSPRN PRN ORAL Insomnia 06/29/17 05:45 07/06/17 05:44 VENTURA VALENZUELA Jul 04, 2017 12:41
[2017-07-04 15:56] VITALS: BP 103/49
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
[2017-07-04 20:00] VITALS: BP 115/57
[2017-07-05] VITALS: BP 132/70
[2017-07-05] MEDS: Hydrocortisone 2.5% Oint 30gm TOPIC PRN (03:19)
[2017-07-05 04:00] VITALS: BP 134/67
[2017-07-05] MEDS: DiphenhydrAMINE 50mg/ml Inj IVP PRN ×3 (06:02→18:51)
--- NOTE | 2017-07-05 08:11 | General Progress Note ---
Progress Note Progress Note Afebrile, decubiti clean, no bleeding from wounds or stoma. Will see less often. KIKA WEBBER Jul 05, 2017 08:11
[2017-07-05] MEDS: Heparin 5000 units/ml inj SUBQ SCH ×2 (09:00→21:30)
--- NOTE | 2017-07-05 11:23 | GI Progress Note ---
Assessment/Plan Problems: (1) Anemia ICD Codes: D64.9 - Anemia, unspecified SNOMED: 474225736 (2) Ostomy nurse consultation ICD Codes: Z71.89 - Other specified counseling SNOMED: 011491835, [id number] Status: stable, unchanged Status Narrative Discussed with Dr. Encinas. Assessment/Plan surgical recs noted >> no intervention at this time patient educated on ostomy/wound care. ostomy care daily/prn frequent turn q2 hours stable H&H, prn transfusions anemia work up >> unremarkable abx fu labs Subjective Subjective no recurrent bleed from ostomy site Objective Last 24 Hour Vital Signs Date Time Temp Pulse Resp B/P (MAP) Pulse Ox O2 Delivery O2 Flow Rate FiO2 07/05/17 04:00 98.4 66 20 134/67 98 Room Air 07/05/17 00:00 98.6 72 20 132/70 97 Room Air 07/04/17 20:00 97.4 82 21 115/57 97 Room Air 07/04/17 15:56 98.6 64 21 103/49 95 Room Air Intake and Output 07/05/17 07/06/17 19:00 07:00 # Bowel Movements 1 Height (Feet): 6 Height (Inches): 2.00 Weight (Pounds): 210 General Appearance: no apparent distress, alert Cardiovascular: normal rate Respiratory/Chest: normal breath sounds, no respiratory distress Abdominal Exam: normal bowel sounds, non tender, soft, other - ostomy c/d/i Reyna Milton N.P. Jul 05, 2017 11:23
[2017-07-05 12:00] VITALS: BP 114/68
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
[2017-07-05 16:00] VITALS: BP 127/62
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
[2017-07-05] MEDS: HYDROmorphone 2mg tab ORAL PRN (18:51)
[2017-07-05 20:00] VITALS: BP 109/73
[2017-07-06] VITALS: BP 138/76
[2017-07-06] MEDS: DiphenhydrAMINE 50mg/ml Inj IVP PRN ×4 (01:01→23:43)
[2017-07-06 04:00] VITALS: BP 122/71
[2017-07-06 08:00] VITALS: BP 115/48
[2017-07-06] MEDS: HYDROmorphone 2mg tab ORAL PRN (08:43)
[2017-07-06] MEDS: Heparin 5000 units/ml inj SUBQ SCH ×2 (10:37→21:44)
[2017-07-06 12:00] VITALS: BP 103/61
--- NOTE | 2017-07-06 14:37 | GI Progress Note ---
Assessment/Plan Problems: (1) Anemia ICD Codes: D64.9 - Anemia, unspecified SNOMED: 705009295 (2) Ostomy nurse consultation ICD Codes: Z71.89 - Other specified counseling SNOMED: 000421691, [id number] Status: stable Status Narrative Discussed with Dr. Encinas. Assessment/Plan surgical recs noted >> no intervention at this time patient educated on ostomy/wound care. ostomy care daily/prn frequent turn q2 hours stable H&H, prn transfusions anemia work up >> unremarkable abx fu labs Subjective Subjective no recurrent bleed from ostomy site Objective Last 24 Hour Vital Signs Date Time Temp Pulse Resp B/P (MAP) Pulse Ox O2 Delivery O2 Flow Rate FiO2 07/06/17 12:00 98.2 68 21 103/61 98 Nasal Cannula 5.0 07/06/17 08:00 98.6 68 17 115/48 97 Room Air 07/06/17 04:00 98.2 69 22 122/71 100 Room Air 07/06/17 00:56 98.6 07/06/17 00:00 98.6 56 21 138/76 99 Room Air 07/05/17 20:00 98.6 73 22 109/73 97 Room Air 07/05/17 19:50 98.2 07/05/17 16:00 98.2 65 20 127/62 98 Room Air Intake and Output 07/06/17 07/07/17 19:00 07:00 # Bowel Movements 1 Height (Feet): 6 Height (Inches): 2.00 Weight (Pounds): 210 General Appearance: no apparent distress, alert Cardiovascular: normal rate Respiratory/Chest: normal breath sounds, no respiratory distress Abdominal Exam: normal bowel sounds, non tender, soft, other - ostomy Reyna Milton N.P. Jul 06, 2017 14:37
[2017-07-06 16:00] VITALS: BP 96/49
[2017-07-06 20:00] VITALS: BP 108/46
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
[2017-07-07] VITALS: BP 135/76
[2017-07-07 04:27] VITALS: BP 132/76
[2017-07-07 08:00] VITALS: BP 139/88
[2017-07-07] MEDS: Heparin 5000 units/ml inj SUBQ SCH ×2 (09:00→21:03)
--- NOTE | 2017-07-07 10:47 | GI Progress Note ---
Assessment/Plan Problems: (1) Anemia ICD Codes: D64.9 - Anemia, unspecified SNOMED: 384716660 (2) Ostomy nurse consultation ICD Codes: Z71.89 - Other specified counseling SNOMED: 375371735, 557320201 Status: doing well, stable, progressing Status Narrative Discussed with Dr. Encinas. Assessment/Plan ok for DC per GI standpoint no labs x 5 days surgical recs noted >> no intervention at this time patient educated on ostomy/wound care. ostomy care daily/prn frequent turn q2 hours stable H&H, prn transfusions anemia work up >> unremarkable abx fu labs Subjective Subjective no recurrent bleed from ostomy site no other complaints Objective Last 24 Hour Vital Signs Date Time Temp Pulse Resp B/P (MAP) Pulse Ox O2 Delivery O2 Flow Rate FiO2 07/07/17 08:00 98.2 75 20 139/88 98 Room Air 07/07/17 04:27 98.6 71 20 132/76 96 Room Air 07/07/17 00:00 98.6 69 20 135/76 96 Room Air 07/06/17 20:00 98.4 66 20 108/46 98 Room Air 07/06/17 16:00 98.2 62 20 96/49 96 Room Air 07/06/17 12:00 98.2 68 21 103/61 98 Nasal Cannula 5.0 Height (Feet): 6 Height (Inches): 2.00 Weight (Pounds): 210 General Appearance: no apparent distress, alert Cardiovascular: normal rate Respiratory/Chest: normal breath sounds, no respiratory distress Abdominal Exam: normal bowel sounds, non tender, soft, other - ostomy site Reyna Milton N.P. Jul 07, 2017 10:46
[2017-07-07] MEDS: DiphenhydrAMINE 50mg/ml Inj IVP PRN ×2 (10:55→18:26)
--- NOTE | 2017-07-07 11:53 | Wound Nurse Progress Note ---
Wound RN Progress Note Wound Consult attempted to reassess admitted wounds,explained purpose of reassessment, per patient dressing were already changed would like to be seen tomorrow. will continue to follow up. BABATUNDE SUÁREZ Jul 07, 2017 11:53
[2017-07-07 12:00] VITALS: BP 97/53
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
[2017-07-07] MEDS: HYDROmorphone 2mg tab ORAL PRN (18:27)
[2017-07-07 20:00] VITALS: BP 115/61
[2017-07-08] VITALS: BP 97/43
[2017-07-08] MEDS: DiphenhydrAMINE 50mg/ml Inj IVP PRN ×3 (00:55→12:42)
[2017-07-08] MEDS: Hydrocortisone 2.5% Oint 30gm TOPIC PRN (02:52)
[2017-07-08 04:00] VITALS: BP 129/51
[2017-07-08] MEDS: Heparin 5000 units/ml inj SUBQ SCH ×2 (09:00→20:12)
--- NOTE | 2017-07-08 10:47 | GI Progress Note ---
Assessment/Plan Problems: (1) Anemia ICD Codes: D64.9 - Anemia, unspecified SNOMED: 738210837 (2) Ostomy nurse consultation ICD Codes: Z71.89 - Other specified counseling SNOMED: 974190717, 380894013 Status: doing well, stable, progressing Status Narrative Discussed with Dr. Encinas. Assessment/Plan ok for DC per GI standpoint no labs x 5 days surgical recs noted >> no intervention at this time patient educated on ostomy/wound care. ostomy care daily/prn frequent turn q2 hours stable H&H, prn transfusions anemia work up >> unremarkable abx fu labs Subjective Gastrointestinal/Abdominal: Reports: no symptoms Subjective no recurrent bleed from ostomy site no other complaints Objective Last 24 Hour Vital Signs Date Time Temp Pulse Resp B/P (MAP) Pulse Ox O2 Delivery O2 Flow Rate FiO2 07/08/17 04:00 98.0 64 20 129/51 97 Room Air 07/08/17 00:00 98.1 82 20 97/43 95 Room Air 07/07/17 20:00 98.8 78 18 115/61 98 Room Air 07/07/17 12:00 98.2 75 20 97/53 98 Room Air Height (Feet): 6 Height (Inches): 2.00 Weight (Pounds): 210 General Appearance: no apparent distress, alert Cardiovascular: normal rate Respiratory/Chest: normal breath sounds, no respiratory distress Abdominal Exam: normal bowel sounds, non tender, soft Reyna Milton N.P. Jul 08, 2017 10:47
--- NOTE | 2017-07-08 11:13 | Wound Nurse Progress Note ---
Wound RN Progress Note Wound Consult attempted to reassess admitted wound sites and general skin patient refused strongly stated "NO". Explained benefit for providing skin assessment. refused. per recent pictures noted pressure ulcer sites with good progress wound beds pink per picture. BABATUNDE SUÁREZ Jul 08, 2017 11:13
[2017-07-08 16:00] VITALS: BP 125/58
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
[2017-07-08 20:00] VITALS: BP 114/51
[2017-07-08] MEDS: HYDROmorphone 2mg tab ORAL PRN (20:11)
[2017-07-09] VITALS: BP 122/49
[2017-07-09] MEDS: DiphenhydrAMINE 50mg/ml Inj IVP PRN ×2 (00:35→21:39)
[2017-07-09 04:00] VITALS: BP 125/77
[2017-07-09 08:00] VITALS: BP 120/58
[2017-07-09] MEDS: Heparin 5000 units/ml inj SUBQ SCH ×2 (09:00→20:46)
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
--- NOTE | 2017-07-09 10:52 | General Progress Note ---
Progress Note Progress Note Surgery: no acute events. doing well. wound dressings recently changed and wounds with good healthy tissue. no further debridement necessary at this time. continue with wound care Senthil Armstrong Jul 09, 2017 10:52
[2017-07-09 12:00] VITALS: BP 126/64
[2017-07-09 16:00] VITALS: BP 133/84
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
[2017-07-09 20:00] VITALS: BP 135/52
[2017-07-10 00:03] VITALS: BP 102/54
[2017-07-10] MEDS: DiphenhydrAMINE 50mg/ml Inj IVP PRN ×2 (04:04→13:00)
[2017-07-10 04:07] VITALS: BP 119/62
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
[2017-07-10] MEDS: Heparin 5000 units/ml inj SUBQ SCH ×2 (09:00→20:49)
[2017-07-10 12:00] VITALS: BP 117/59
[2017-07-10] MEDS: Hydrocortisone 2.5% Oint 30gm TOPIC PRN (13:08)
[2017-07-10 16:14] VITALS: BP 114/58
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
[2017-07-10 20:00] VITALS: BP 133/65
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
[2017-07-11] VITALS: BP 136/74
[2017-07-11] MEDS: DiphenhydrAMINE 50mg/ml Inj IVP PRN ×3 (00:06→14:34)
[2017-07-11 04:12] VITALS: BP 115/72
[2017-07-11 08:00] VITALS: BP 99/53
[2017-07-11] MEDS: Heparin 5000 units/ml inj SUBQ SCH ×2 (08:43→20:56)
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
[2017-07-11 12:00] VITALS: BP 119/60
--- NOTE | 2017-07-11 12:56 | Infectious Diseases Prog Note ---
Assessment/Plan Assessment/Plan A; Pyuria MRSA colonization Stage 3 buttock ulcers s/p debridement s/p diverting colostomy P; observe off antibiotic Subjective ROS Limited/Unobtainable: Yes Allergies: Coded Allergies: CEPHALEXIN (Verified Allergy, Unknown, 06/28/17) MORPHINE (Verified Allergy, Unknown, 06/28/17) Objective Vital Signs Last 24 Hour Vital Signs Date Time Temp Pulse Resp B/P (MAP) Pulse Ox O2 Delivery O2 Flow Rate FiO2 07/11/17 08:00 97.7 63 16 99/53 97 Room Air 07/11/17 04:12 98.1 86 20 115/72 97 Room Air 07/11/17 00:00 99.5 82 21 136/74 98 Room Air 07/10/17 20:00 99.7 78 22 133/65 98 Room Air 07/10/17 16:14 98.1 74 19 114/58 96 Room Air Height (Feet): 6 Height (Inches): 2.00 Weight (Pounds): 210 General Appearance: no acute distress HEENT: mucous membranes moist Respiratory/Chest: lungs clear Cardiovascular: normal rate Abdomen: soft, non tender Extremities: no edema Skin: ulcers Neurologic/Psychiatric: other - sleeping Current Medications Medications (Trade) Dose Ordered Sig/Pedro Route PRN Reason Start Time Stop Time Status Last Admin Dose Admin Acetaminophen (Tylenol) 650 mg Q4H PRN ORAL fever 06/29/17 05:45 07/29/17 05:44 Al Hydroxide/Mg Hydroxide (Mylanta II) 30 ml Q6H PRN ORAL dyspepsia 06/29/17 05:45 07/29/17 05:44 Baclofen (Lioresal) 10 mg THREE TIMES A DAY PRN ORAL muscle spasm 06/29/17 09:00 07/29/17 08:59 07/06/17 12:12 Clotrimazole (Lotrimin) 1 applic EVERY 12 HOURS TOPIC 06/30/17 21:30 07/30/17 21:29 07/11/17 08:41 Dextrose (Dextrose 50%) STAT PRN IV Hypoglycemia 06/29/17 05:45 07/29/17 05:44 Diphenhydramine HCl (Benadryl) 25 mg Q6H PRN IVP Itching 06/29/17 08:00 07/29/17 07:59 07/11/17 07:36 Gabapentin (Neurontin) 100 mg THREE TIMES A DAY ORAL 06/29/17 09:00 07/29/17 08:59 07/11/17 08:41 Heparin Sodium (Porcine) (Heparin 5000 units/ml) 5,000 units EVERY 12 HOURS SUBQ 06/29/17 09:00 07/29/17 08:59 07/11/17 08:43 Hydrocortisone (Hydrocortisone) 1 applic Q6H PRN TOPIC Itching 06/30/17 18:00 07/30/17 17:59 07/10/17 13:08 Hydromorphone HCl (Dilaudid) 2 mg BIDPRN PRN IVP prior to dressing changes 07/11/17 12:00 07/14/17 11:59 Hydromorphone HCl (Dilaudid) 2 mg Q4H PRN ORAL Severe Pain (Pain Scale 7-10) 07/11/17 12:00 07/18/17 11:59 Ondansetron HCl (Zofran) 4 mg Q6H PRN IVP Nausea & Vomiting 06/29/17 05:45 07/29/17 05:44 07/11/17 07:36 Polyethylene Glycol (Miralax) 17 gm HSPRN PRN ORAL Constipation 06/29/17 05:45 07/29/17 05:44 VENTURA VALENZUELA Jul 11, 2017 12:56
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
[2017-07-11 16:00] VITALS: BP 119/57
[2017-07-11 20:00] VITALS: BP 131/74
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
[2017-07-12] VITALS: BP 102/63
[2017-07-12] MEDS: DiphenhydrAMINE 50mg/ml Inj IVP PRN ×3 (00:13→17:17)
[2017-07-12 04:00] VITALS: BP 119/59
[2017-07-12 08:00] VITALS: BP 115/61
[2017-07-12] MEDS: Hydrocortisone 2.5% Oint 30gm TOPIC PRN (08:23)
[2017-07-12] MEDS: Heparin 5000 units/ml inj SUBQ SCH ×2 (08:24→21:00)
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
--- NOTE | 2017-07-12 13:38 | Wound Nurse Progress Note ---
Wound RN Progress Note Wound Consult Attempted to reassess skin patient did not allow me to assess at this time. BABATUNDE SUÁREZ Jul 12, 2017 13:38
[2017-07-12 16:15] VITALS: BP 124/75
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
[2017-07-12] MEDS ORDERED: D5 1/2NS 1000ml IV ONE (18:55)
[2017-07-13] VITALS: BP 117/68
[2017-07-13] MEDS: DiphenhydrAMINE 50mg/ml Inj IVP PRN ×3 (00:13→17:58)
[2017-07-13 04:00] VITALS: BP 119/65
[2017-07-13 08:30] VITALS: BP 120/72
[2017-07-13] MEDS: Heparin 5000 units/ml inj SUBQ SCH ×2 (09:00→21:00)
[2017-07-13 11:58] VITALS: BP 106/60
[2017-07-13 15:46] VITALS: BP 135/68
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
[2017-07-13 20:00] VITALS: BP 124/64
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
[2017-07-13] MEDS: Hydrocortisone 2.5% Oint 30gm TOPIC PRN (22:40)
[2017-07-14] VITALS: BP 107/62
[2017-07-14] MEDS: DiphenhydrAMINE 50mg/ml Inj IVP PRN ×3 (00:11→20:07)
[2017-07-14 04:00] VITALS: BP 119/71
[2017-07-14] MEDS: Heparin 5000 units/ml inj SUBQ SCH ×2 (09:00→20:06)
[2017-07-14 10:42] VITALS: BP 126/68
--- NOTE | 2017-07-14 10:58 | General Progress Note ---
Progress Note Progress Note Surgery: doing well. no complaints. mood improved. wounds being changed and healing. recent dressings change without any necrotic tissue or drainage. wounds clean. no bleeding from ostomy site. overall improved. continue with wound care. Senthil Armstrong Jul 14, 2017 10:58
[2017-07-14 12:00] VITALS: BP 131/79
[2017-07-14 16:00] VITALS: BP 107/59
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
[2017-07-15] VITALS: BP 110/70
[2017-07-15] MEDS: DiphenhydrAMINE 50mg/ml Inj IVP PRN ×3 (03:20→19:11)
[2017-07-15 04:00] VITALS: BP 119/75
[2017-07-15] MEDS: Heparin 5000 units/ml inj SUBQ SCH ×2 (09:55→21:00)
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
[2017-07-15 16:00] VITALS: BP 109/51
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
[2017-07-15 20:00] VITALS: BP 149/95
[2017-07-15] MEDS: Hydrocortisone 2.5% Oint 30gm TOPIC PRN (20:05)
[2017-07-15] MEDS: HYDROmorphone 2mg tab ORAL PRN (23:58)
[2017-07-16] VITALS: BP 106/52
[2017-07-16] MEDS: DiphenhydrAMINE 50mg/ml Inj IVP PRN ×2 (02:32→09:42)
[2017-07-16 04:00] VITALS: BP 113/56
[2017-07-16] MEDS: Heparin 5000 units/ml inj SUBQ SCH ×2 (09:00→20:50)
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
[2017-07-16] MEDS: HYDROmorphone 2mg tab ORAL PRN (15:26)
[2017-07-16 16:00] VITALS: BP 118/58
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
[2017-07-16 19:39] VITALS: BP 111/80
[2017-07-16 23:54] VITALS: BP 139/87
[2017-07-17] MEDS: DiphenhydrAMINE 50mg/ml Inj IVP PRN ×4 (00:02→23:52)
[2017-07-17 03:56] VITALS: BP 111/65
[2017-07-17] MEDS: HYDROmorphone 2mg tab ORAL PRN (04:55)
[2017-07-17 08:00] VITALS: BP 130/72
[2017-07-17] MEDS: Heparin 5000 units/ml inj SUBQ SCH ×2 (09:00→22:46)
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
[2017-07-18] VITALS: BP 128/54
[2017-07-18 04:00] VITALS: BP 118/70
[2017-07-18 08:28] VITALS: BP 108/61
[2017-07-18] MEDS: Heparin 5000 units/ml inj SUBQ SCH ×2 (08:50→21:00)
[2017-07-18] MEDS: DiphenhydrAMINE 50mg/ml Inj IVP PRN ×2 (09:34→17:31)
[2017-07-18] MEDS ORDERED: Tubing IV Secondary IV ONE (10:23)
--- NOTE | 2017-07-18 11:48 | Infectious Diseases Prog Note ---
Assessment/Plan Assessment/Plan A; Pyuria, asymptomatic bacteruria MRSA colonization Stage 3 buttock ulcers s/p debridement s/p diverting colostomy P; observe off antibiotic Subjective ROS Limited/Unobtainable: Yes Allergies: Coded Allergies: CEPHALEXIN (Verified Allergy, Unknown, 06/28/17) MORPHINE (Verified Allergy, Unknown, 06/28/17) Objective Vital Signs Last 24 Hour Vital Signs Date Time Temp Pulse Resp B/P (MAP) Pulse Ox O2 Delivery O2 Flow Rate FiO2 07/18/17 08:28 99.9 64 20 108/61 97 Room Air 07/18/17 04:00 97.7 81 16 118/70 97 Room Air 07/18/17 00:00 98.2 72 17 128/54 98 Room Air Height (Feet): 6 Height (Inches): 2.00 Weight (Pounds): 210 General Appearance: no acute distress HEENT: mucous membranes moist Respiratory/Chest: lungs clear, normal breath sounds Cardiovascular: normal rate Abdomen: soft, non tender, other - s/p colostomy Extremities: no edema Skin: ulcers Neurologic/Psychiatric: alert, oriented x 3, responsive, other - paraplegia Current Medications Medications (Trade) Dose Ordered Sig/Pedro Route PRN Reason Start Time Stop Time Status Last Admin Dose Admin Acetaminophen (Tylenol) 650 mg Q4H PRN ORAL fever 06/29/17 05:45 07/29/17 05:44 07/11/17 16:07 Al Hydroxide/Mg Hydroxide (Mylanta II) 30 ml Q6H PRN ORAL dyspepsia 06/29/17 05:45 07/29/17 05:44 Baclofen (Lioresal) 10 mg THREE TIMES A DAY PRN ORAL muscle spasm 06/29/17 09:00 07/29/17 08:59 07/06/17 12:12 Clotrimazole (Lotrimin) 1 applic EVERY 12 HOURS TOPIC 06/30/17 21:30 07/30/17 21:29 07/17/17 22:43 Dextrose (Dextrose 50%) STAT PRN IV Hypoglycemia 06/29/17 05:45 07/29/17 05:44 Diphenhydramine HCl (Benadryl) 25 mg Q6H PRN IVP Itching 06/29/17 08:00 07/29/17 07:59 07/18/17 09:34 Gabapentin (Neurontin) 100 mg THREE TIMES A DAY ORAL 06/29/17 09:00 07/29/17 08:59 07/16/17 18:00 Heparin Sodium (Porcine) (Heparin 5000 units/ml) 5,000 units EVERY 12 HOURS SUBQ 06/29/17 09:00 07/29/17 08:59 07/17/17 22:46 Hydrocortisone (Hydrocortisone) 1 applic Q6H PRN TOPIC Itching 06/30/17 18:00 07/30/17 17:59 07/15/17 20:05 Hydromorphone HCl (Dilaudid) 2 mg BIDPRN PRN IVP For Pain Prior to Dressing Chio 07/14/17 15:00 07/21/17 14:59 07/18/17 09:35 Hydromorphone HCl (Dilaudid) 2 mg Q4H PRN ORAL Severe Pain (Pain Scale 7-10) 07/11/17 12:00 07/18/17 11:59 07/17/17 04:55 Ondansetron HCl (Zofran) 4 mg Q6H PRN IVP Nausea & Vomiting 06/29/17 05:45 07/29/17 05:44 07/12/17 00:59 Polyethylene Glycol (Miralax) 17 gm HSPRN PRN ORAL Constipation 06/29/17 05:45 07/29/17 05:44 VENTURA VALENZUELA Jul 18, 2017 11:48
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
[2017-07-18 15:59] VITALS: BP 100/48
[2017-07-19] MEDS: DiphenhydrAMINE 50mg/ml Inj IVP PRN ×3 (00:24→16:46)
[2017-07-19 03:32] VITALS: BP 121/56
[2017-07-19 08:00] VITALS: BP 119/70
[2017-07-19] MEDS: Heparin 5000 units/ml inj SUBQ SCH ×2 (08:03→21:00)
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
[2017-07-19] MEDS: HYDROmorphone 2mg tab ORAL PRN (16:46)
[2017-07-19 20:21] VITALS: BP_SYST 111; BP_SYST 120; BP_DIAS 60; BP_DIAS 71
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
[2017-07-20] MEDS: DiphenhydrAMINE 50mg/ml Inj IVP PRN ×3 (00:07→17:28)
[2017-07-20 00:18] VITALS: BP 124/76
[2017-07-20 03:53] VITALS: BP 114/68
[2017-07-20] MEDS: HYDROmorphone 2mg tab ORAL PRN (06:29)
[2017-07-20 08:27] VITALS: BP 120/65
[2017-07-20] MEDS: Heparin 5000 units/ml inj SUBQ SCH ×2 (08:50→21:00)
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
[2017-07-20 12:41] VITALS: BP 106/56
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
[2017-07-20 20:00] VITALS: BP 132/75
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
[2017-07-21] VITALS: BP 137/72
[2017-07-21] MEDS: DiphenhydrAMINE 50mg/ml Inj IVP PRN ×3 (00:01→17:31)
[2017-07-21 04:43] VITALS: BP 121/55
[2017-07-21] MEDS: Heparin 5000 units/ml inj SUBQ SCH ×2 (08:54→21:00)
[2017-07-21 12:22] VITALS: BP 120/50
[2017-07-21] MEDS: HYDROmorphone 2mg tab ORAL PRN (15:43)
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
[2017-07-21 19:52] VITALS: BP 109/58
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
[2017-07-22] VITALS: BP 110/70
[2017-07-22] MEDS: DiphenhydrAMINE 50mg/ml Inj IVP PRN ×3 (00:41→17:44)
[2017-07-22] MEDS: Heparin 5000 units/ml inj SUBQ SCH (08:18)
[2017-07-22 12:00] VITALS: BP 127/53
[2017-07-22 16:00] VITALS: BP 116/66
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
--- NOTE | 2017-07-23 17:30 | Discharge Summary ---
Discharge Summary Hospital Course Date of Admission Jun 29, 2017 at 02:51 Date of Discharge Jul 22, 2017 at 20:13 Admitting Diagnosis CHRONIC PAIN/ WOUND PAIN HPI Phillip Garcia is a 22 year old male who was admitted on Jun 29, 2017 at 02: 51 for Chronic Pain,Wound Pain Hospital Course [id number] Discharge Discharge Disposition Patient was discharged to Home with Home Health(06) Discharge Diagnoses: Claudia Seo NP Jul 23, 2017 17:30
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
== END 2017-07-22 20:13 | disposition home health service (06) | DRG 380 ==
LOC: EDBD 23:44 → EMR 06-29 00:30 → 4E 06-29 02:51 → EDBEDREQ 06-29 03:15 → 4E 07-03 15:53 → 4W 07-13 08:04
PROC: 0JB70ZZ Excision of Back Subcutaneous Tissue and Fascia, Open Approach (ICD-10-PCS; principal; 2017-07-02)
PROC: 0JB90ZZ Excision of Buttock Subcutaneous Tissue and Fascia, Open Approach (ICD-10-PCS; 2017-07-02)
DX: L89.153 Pressure ulcer of sacral region, stage 3 (principal); G82.20 Paraplegia, unspecified; G62.9 Polyneuropathy, unspecified; L89.323 Pressure ulcer of left buttock, stage 3; L89.523 Pressure ulcer of left ankle, stage 3; Z43.3 Encounter for attention to colostomy; L89.313 Pressure ulcer of right buttock, stage 3; D64.9 Anemia, unspecified; W34.00XS Accidental discharge from unspecified firearms or gun, sequela; Z88.6 Allergy status to analgesic agent; Z88.1 Allergy status to other antibiotic agents; R52 Pain, unspecified; Z22.322 Carrier or suspected carrier of Methicillin resistant Staphylococcus aureus
CPT/HCPCS: 36415; 80048; 80053; 81003; 82550; 82553; 82607; 82728; 82746; 83540; 83550; 83605; 84439; 84443; 84484; 85025; 85044; 87040; 87070; 87081; 87086; 87181; 87205; 99285; J2405; S0077

== ENCOUNTER 2019-08-29 15:33 | Emergency (ER) | payer OTHER ==
[~2019-08-29] VITALS: Ht 188 cm; Wt 117.5 kg
[~2019-08-29 15:33] MED LIST: BACLOFEN10 MG ORAL; Cefepime HCl 1 GM in NS 55 ML IV SCH; FERROUS SULFAT325 MG ORAL; GABAPENTIN100 MG ORAL; MILK OF MA400 MG/51 ORAL; NITROFURANTOIN100 M2 ORAL; PERCOCET 5-3251 EACH ORAL; UNOBMED; VITAMIN C500 MG/11 PO
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
[2019-08-29] MEDS ORDERED: Acetaminophen 500mg (ES) tab ORAL ONE (15:45)
--- NOTE | 2019-08-29 15:45 | NUR ---
ED Nurse Note: Patient brought in by [facility] for fever. Pt is coming from [facility]. Pt notes he had a fever of 101 F yesterday. Pt also notes vomiting, chills and body aches the past three days. Pt states generaslized body aches is 9/10 pain. Pt also has not been able to tolerate any food. Pt has colostomy bag in place. Pt is alert and oriented x 4, speaking in fulll sentences, breathing is normal and unlabored.
[2019-08-29] MEDS ORDERED: Vancomycin 1.5 GM in NS 275 ML IVPB SCH (15:48)
[2019-08-29] MEDS ORDERED: ZINC SULFATE220 M1 ORAL (15:53)
[2019-08-29] MEDS ORDERED: ACETAMINOPHEN500 M3 ORAL (15:53)
[2019-08-29] MEDS ORDERED: OXYBUTYNIN5 MG/5 M1 PO (15:53)
[2019-08-29] MEDS ORDERED: ONDANSETRON ODT4 MG BC (15:53)
[2019-08-29] MEDS ORDERED: BACLOFEN10 MG ORAL (15:53)
[2019-08-29] MEDS ORDERED: MULTIVITAMINS1 EAC2 ORAL (15:53)
[2019-08-29] MEDS ORDERED: VITAMIN D250000 UNI1 ORAL (15:53)
[2019-08-29] MEDS ORDERED: VITAMIN C500 M1 ORAL (15:53)
[2019-08-29] MEDS ORDERED: GABAPENTIN800 MG ORAL (15:53)
[2019-08-29] MEDS ORDERED: NORCO 10-325 T1 EACH ORAL (15:53)
[2019-08-29] MEDS ORDERED: LOVENOX10 M4 SUBQ (15:53)
[2019-08-29] MEDS ORDERED: SENNA8.6 M2 PO (15:53)
[2019-08-29] MEDS ORDERED: MIRALAX17 G2 ORAL (15:53)
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
[2019-08-29] MEDS ORDERED: Vancomycin 1.5gm/NS Premix 275 ML IVPB SCH (16:00)
[2019-08-29] MEDS ORDERED: Hydromorphone 0.5mg/0.5ml inj IVP ONE ×2 (16:00→18:30)
[2019-08-29] MEDS ORDERED: Omnipaque-300 100ml vial INJ PRN (16:00)
--- NOTE | 2019-08-29 16:00 | NUR ---
ED Nurse Note: Per pt there is a pressure ulcer on sacral area and multiple skin tears on left side of lower abdomen. Pt also has open skin tear on right foot second digit, left foot second and third digits. Pt has wrapped bandage on left ankle.
[2019-08-29 16:36] LABS: APPEARANCE,URINE SLIGHTLY CLOUDY; BILIRUBIN, URINE NEGATIVE (NEGATIVE); GLUCOSE, URINE (UA) NEGATIVE (NEGATIVE); KETONES,URINE 1+ (NEGATIVE); LEUKOCYTE ESTERASE ,URINE 3+ (NEGATIVE); NITRITE,URINE POSITIVE (NEGATIVE); PH,URINE 9 (4.5-8.0); PROTEIN,URINE 2+ (NEGATIVE); UROBILINOGEN,URINE NORMAL MG/DL (0.0-1.0)
[2019-08-29 16:40] LABS: COLOR,URINE PALE YELLOW
[2019-08-29 17:19] LABS: INR 1.3 (0.9-1.1)
[2019-08-29 17:21] LABS: HEMATOCRIT 32.4 % (42.0-52.0); HEMOGLOBIN 10.1 G/DL (14.2-18.0); MEAN CORPUSCULAR VOLUME 76 FL (80-99); PLATELET COUNT 497 K/UL (150-450); RED BLOOD COUNT 4.27 M/UL (4.70-6.10); RED CELL DISTRIBUTION WIDTH 16.8 % (11.6-14.8); WHITE BLOOD COUNT 18.4 K/UL (4.8-10.8)
[2019-08-29 17:24] LABS: ALANINE AMINOTRANSFERASE 14 U/L (12-78); ALBUMIN 2.6 G/DL (3.4-5.0); ALBUMIN/GLOBULIN RATIO 0.4 (1.0-2.7); ALKALINE PHOSPHATASE 112 U/L (46-116); ANION GAP 13 mmol/L (5-15); ASPARTATE AMINO TRANSFERASE 16 U/L (15-37); BILIRUBIN,TOTAL 0.3 MG/DL (0.2-1.0); BLOOD UREA NITROGEN 9 mg/dL (7-18); CALCIUM 8.6 MG/DL (8.5-10.1); CARBON DIOXIDE 26 MMOL/L (21-32); CHLORIDE 99 MMOL/L (98-107); CKMB < 0.5 NG/ML (0.0-3.6); CREATINE KINASE 50 U/L (26-308); CREATININE 0.9 MG/DL (0.55-1.30); PHOSPHORUS 1.9 MG/DL (2.5-4.9); SODIUM 137 MMOL/L (136-145)
[2019-08-29 17:26] LABS: POTASSIUM 2.7 MMOL/L (3.5-5.1)
[2019-08-29 18:16] VITALS: BP 105/48
--- NOTE | 2019-08-29 18:22 | NUR ---
ED Nurse Note: Reports given to GULSHAN Dalton, linen room houseperson at OR Comm.
--- NOTE | 2019-08-29 18:35 | NUR ---
ED Nurse Note: PT transferred by [facility] to DC Comm.
[2019-08-29 18:46] VITALS: BP 105/48
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
--- NOTE | 2019-08-29 19:15 | NUR ---
ED Nurse Note: Per JERONIMO solitario new dudley 16 mongolian was inserted.
--- NOTE | 2019-08-30 15:05 | Cardiology Report ---
APPROVED REPORT EKG Measurement Heart [id number] [id number] Sinus tachycardia Cannot rule out Inferior infarct, age undetermined Abnormal ECG
== END 2019-08-29 18:35 | disposition short-term general hospital (02) ==
LOC: EDBD 15:33 → EDBEDREQ 15:43 → EMR 16:17
DX: A41.9 Sepsis, unspecified organism (principal); N30.01 Acute cystitis with hematuria; R50.9 Fever, unspecified; G82.20 Paraplegia, unspecified; G40.909 Epilepsy, unspecified, not intractable, without status epilepticus; F32.9 Major depressive disorder, single episode, unspecified; Z88.5 Allergy status to narcotic agent; Z88.8 Allergy status to other drugs, medicaments and biological substances; Z91.013 Allergy to seafood
CPT/HCPCS: 36415; 51702; 71045; 74177; 80053; 81003; 82550; 82553; 82962; 83605; 83690; 83735; 83880; 84100; 84484; 85007; 85025; 85610; 85730; 86710; 87040; 87086; 87181; 93005; 96365; 96366; 96367; 96375; 96376; J0692; J1170; J2405; J7030; Q9967; Z7502; 99285; J8499

== ENCOUNTER 2020-01-24 20:46 | Inpatient (IN) | payer OTHER ==
[~2020-01-24] VITALS: Ht 188 cm; Wt 126.6 kg
[~2020-01-24 20:46] MED LIST changes: +ACETAMINOPHEN500 M3 ORAL; -Cefepime HCl 1 GM in NS 55 ML IV SCH; +GABAPENTIN800 MG ORAL; +LOVENOX10 M4 SUBQ; +MIRALAX17 G2 ORAL; +MULTIVITAMINS1 EAC2 ORAL; +NORCO 10-325 T1 EACH ORAL; +ONDANSETRON ODT4 MG BC; +OXYBUTYNIN5 MG/5 M1 PO; +SENNA8.6 M2 PO; +VITAMIN C500 M1 ORAL; +VITAMIN D250000 UNI1 ORAL; +ZINC SULFATE220 M1 ORAL
--- NOTE | 2020-01-24 21:00 | NUR ---
ED Nurse Note: dorcas VAUGHN from [facility] for a fever. EMS report fever of 104, pt was given tylenol PO, temperature in triage is 101.3 orally. pt has a large sacral ulcer noted. pt denies any pain at this time, he is paraplegic, AOx4. pt denies any pain at this time. pt placed in isolation room upon arrival in no acute distress. Addendum: 01/24/20 at 2125 by JEAN-PIERRE pt is c/o 8/10 generalized body pain for the last 3 days as well as a cough and fevers since then. he states that the fever has been on and off but today it was higher than it has been in the last 3 days
--- NOTE | 2020-01-24 21:07 | Emergency Room Report ---
History of Present Illness General Chief Complaint: Fever Source: Patient, EMS Present Illness HPI Patient is a 22-year-old male sent in from nursing facility after increased fever and cough. Patient a prior history of paraplegia. Previous history of a sacral decubitus ulcer. Recent hospitalization approximate 1 month ago at [facility]. Reports having nonproductive cough. Fever up to 101 degrees. Reports having increased generalized body aches. This is started approximate 3 days ago. Patient is living in a nursing facility. Allergies: Coded Allergies: CEPHALEXIN (Verified Allergy, Unknown, 06/28/17) FISH DERIVED (Unverified Allergy, Unknown, 08/29/19) MORPHINE (Verified Allergy, Unknown, 06/28/17) COVID-19 Screening Contact w/high risk pt: No Recent Travel to affected area: No Experienced COVID-19 symptoms?: No Patient History Past Medical History: see triage record Reviewed Nursing Documentation: PMH: Agreed; PSxH: Agreed Nursing Documentation-PMH Past Medical History: No History, Except For Hx Cardiac Problems: No Hx Cancer: No Hx Neurological Problems: Yes - paraplegia,seizures,drug abuse Hx Paralysis: Yes - 10/2016 paralyzed from waist down. Review of Systems All Other Systems: negative except mentioned in HPI Physical Exam Vital Signs Date Time Temp Pulse Resp B/P (MAP) Pulse Ox O2 Delivery O2 Flow Rate FiO2 01/24/20 20:47 101.1 88 16 128/78 (95) 99 Room Air Sp02 EP Interpretation: reviewed, normal General Appearance: normal inspection, well appearing, no apparent distress, alert, GCS 15 Head: atraumatic ENT: normal ENT inspection, hearing grossly normal, normal voice Neck: normal inspection, full range of motion, supple, no bony tend Respiratory: normal inspection, lungs clear, normal breath sounds, no respiratory distress, no retraction, no wheezing Cardiovascular #1: regular rate, rhythm, no edema Gastrointestinal: normal inspection, normal bowel sounds, non tender, soft, no guarding, no hernia, other - Ostomy intact without erythema Genitourinary: no CVA tenderness Musculoskeletal: normal inspection, back normal, other - Bilateral lower extremity weakness Neurologic: alert, life enrichment director III-XII nml as tested, oriented x3, responsive, speech normal, normal inspection Psychiatric: normal inspection, judgement/insight normal, mood/affect normal Skin: other - Decubitus ulcer unstageable Medical Decision Making Diagnostic Impression: Primary Impression: Suspected 2019 novel coronavirus infection Additional Impressions: Colostomy care Paraplegia Decubital ulcer ER Course Patient was noted to acute febrile illness. Given the patient's differential diagnosis include was not limited to decubitus ulcerative infection, pneumonia, coronavirus infection, among others. Because of complexity of patient's case laboratory tests and imaging studies were ordered. Patient was noted to have high fever consistent with possible coronavirus infection however he has multiple other potential sources. Colostomy appears to be functioning well. Patient's patient was given IV fluids as well as IV antibiotics and blood cultures were obtained. Dr. Abebe was contacted for inpatient management due to covering physician for [facility] and agreed with admission. Labs Test 01/24/20 21:21 White Blood Count 9.4 K/UL (4.8-10.8) Red Blood Count 4.12 M/UL (4.70-6.10) Hemoglobin 9.4 G/DL (14.2-18.0) Hematocrit 32.4 % (42.0-52.0) Mean Corpuscular Volume 79 FL (80-99) Mean Corpuscular Hemoglobin 22.7 PG (27.0-31.0) Mean Corpuscular Hemoglobin Concent 28.9 G/DL (32.0-36.0) Red Cell Distribution Width 18.7 % (11.6-14.8) Platelet Count 475 K/UL (150-450) Mean Platelet Volume 5.9 FL (6.5-10.1) Neutrophils (%) (Auto) 72.0 % (45.0-75.0) Lymphocytes (%) (Auto) 19.3 % (20.0-45.0) Monocytes (%) (Auto) 6.9 % (1.0-10.0) Eosinophils (%) (Auto) 1.2 % (0.0-3.0) Basophils (%) (Auto) 0.7 % (0.0-2.0) Urine Color Pale yellow Urine Appearance Slightly cloudy Urine pH 7 (4.5-8.0) Urine Specific Lenora 1.010 (1.005-1.035) Urine Protein 2+ (NEGATIVE) Urine Glucose (UA) Negative (NEGATIVE) Urine Ketones Negative (NEGATIVE) Urine Blood 5+ (NEGATIVE) Urine Nitrite Positive (NEGATIVE) Urine Bilirubin Negative (NEGATIVE) Urine Urobilinogen Normal MG/DL (0.0-1.0) Urine Leukocyte Esterase 3+ (NEGATIVE) Urine RBC 10-15 /HPF (0 - 0) Urine WBC 20-30 /HPF (0 - 0) Urine Squamous Epithelial Cells None /LPF (NONE/OCC) Urine Bacteria Many /HPF (NONE) Sodium Level 139 MMOL/L (136-145) Potassium Level 3.4 MMOL/L (3.5-5.1) Chloride Level 101 MMOL/L (98-107) Carbon Dioxide Level 24 MMOL/L (21-32) Anion Gap 14 mmol/L (5-15) Blood Urea Nitrogen 14 mg/dL (7-18) Creatinine 1.0 MG/DL (0.55-1.30) Estimat Glomerular Filtration Rate > 60 mL/min (>60) Glucose Level 90 MG/DL (74-106) Lactic Acid Level 2.60 mmol/L (0.4-2.0) Calcium Level 8.9 MG/DL (8.5-10.1) Phosphorus Level 3.8 MG/DL (2.5-4.9) Magnesium Level 2.1 MG/DL (1.8-2.4) Total Bilirubin 0.2 MG/DL (0.2-1.0) Aspartate Amino Transf (AST/SGOT) 23 U/L (15-37) Alanine Aminotransferase (ALT/SGPT) 24 U/L (12-78) Alkaline Phosphatase 147 U/L (46-116) Total Creatine Kinase 44 U/L (26-308) Troponin I 0.000 ng/mL (0.000-0.056) Pro-B-Type Natriuretic Peptide 104 pg/mL (0-125) Total Protein 9.0 G/DL (6.4-8.2) Albumin 2.8 G/DL (3.4-5.0) Globulin 6.2 g/dL Albumin/Globulin Ratio 0.5 (1.0-2.7) Last Vital Signs Date Time Temp Pulse Resp B/P (MAP) Pulse Ox O2 Delivery O2 Flow Rate FiO2 01/24/20 20:47 101.1 88 16 128/78 (95) 99 Room Air Status: unchanged Disposition: ADMITTED INPATIENT Condition: Serious Johnny Wu MD Jan 24, 2020 21:07
[2020-01-24] MEDS ORDERED: Acetaminophen 500mg (ES) tab ORAL ONE (21:15)
[2020-01-24] MEDS ORDERED: Vancomycin 1.5 GM in NS 275 ML IVPB ONE (21:15)
[2020-01-24] MEDS ORDERED: HYDROmorphone 1mg/ml Carpuject IVP ONE (21:15)
--- NOTE | 2020-01-24 21:15 | NUR ---
ED Nurse Note: pt refusing CRE/VRE swab at this time. pt came with a dudley that is intact and patent, draining cloudy yellow urine. urine speciem, COVID swab and MRSA swabs obtained. pt refusing CRE&VRE swabs at this time. pt is tachy on hand alterations tailor at 130, ERMD aware
[2020-01-24 21:20] VITALS: BP 107/47
[2020-01-24 21:33] LABS: APPEARANCE,URINE SLIGHTLY CLOUDY; BILIRUBIN, URINE NEGATIVE (NEGATIVE); COLOR,URINE PALE YELLOW; GLUCOSE, URINE (UA) NEGATIVE (NEGATIVE); KETONES,URINE NEGATIVE (NEGATIVE); LEUKOCYTE ESTERASE ,URINE 3+ (NEGATIVE); NITRITE,URINE POSITIVE (NEGATIVE); PH,URINE 7 (4.5-8.0); PROTEIN,URINE 2+ (NEGATIVE); UROBILINOGEN,URINE NORMAL MG/DL (0.0-1.0)
[2020-01-24 22:28] LABS: ANION GAP 14 mmol/L (5-15); BASOPHILS % (AUTO) 0.7 % (0.0-2.0); BLOOD UREA NITROGEN 14 mg/dL (7-18); CALCIUM 8.9 MG/DL (8.5-10.1); CARBON DIOXIDE 24 MMOL/L (21-32); CHLORIDE 101 MMOL/L (98-107); EOSINOPHILS % (AUTO) 1.2 % (0.0-3.0); HEMATOCRIT 32.4 % (42.0-52.0); HEMOGLOBIN 9.4 G/DL (14.2-18.0); LYMPHOCYTES % (AUTO) 19.3 % (20.0-45.0); MEAN CORPUSCULAR VOLUME 79 FL (80-99); MONOCYTES % (AUTO) 6.9 % (1.0-10.0); PLATELET COUNT 475 K/UL (150-450); POTASSIUM 3.4 MMOL/L (3.5-5.1); RED BLOOD COUNT 4.12 M/UL (4.70-6.10); RED CELL DISTRIBUTION WIDTH 18.7 % (11.6-14.8); SODIUM 139 MMOL/L (136-145); WHITE BLOOD COUNT 9.4 K/UL (4.8-10.8)
[2020-01-24] MEDS ORDERED: Azithromycin 500 MG in D5W 275 ML IVPB ONE (22:30)
[2020-01-24 22:38] LABS: ALANINE AMINOTRANSFERASE 24 U/L (12-78); ALBUMIN 2.8 G/DL (3.4-5.0); ALBUMIN/GLOBULIN RATIO 0.5 (1.0-2.7); ALKALINE PHOSPHATASE 147 U/L (46-116); ASPARTATE AMINO TRANSFERASE 23 U/L (15-37); BILIRUBIN,TOTAL 0.2 MG/DL (0.2-1.0); CREATINE KINASE 44 U/L (26-308); PHOSPHORUS 3.8 MG/DL (2.5-4.9)
--- NOTE | 2020-01-24 22:49 | NUR ---
ED Nurse Note: pt is resting in bed, does not appear to be in any acute distress at this time. IV antibiotics are infusing per ERMD orders. pt has cooling measures in place, pillows provided for comfort. safety precautions are in place and isolation is being carried out per protocol
[2020-01-24] MEDS ORDERED: DILAUDID 44 MG/1 M3 PO (23:01)
[2020-01-24] MEDS ORDERED: PERCOCET 5-3251 EACH ORAL (23:01)
[2020-01-24] MEDS ORDERED: LOVENOX10 M4 SUBQ (23:01)
[2020-01-24] MEDS ORDERED: VITAMIN C500 M1 ORAL (23:01)
[2020-01-24] MEDS ORDERED: VENTOLIN HFA18 GM INH (23:01)
[2020-01-24] MEDS ORDERED: TYLENOL EXTRA500 MG ORAL (23:01)
[2020-01-24] MEDS ORDERED: BACLOFEN10 MG ORAL (23:01)
[2020-01-24 23:03] VITALS: BP 12/49
--- NOTE | 2020-01-24 23:45 | History and Physical ---
History of Present Illness General Date patient seen: Jan 24, 2020 Reason for Hospitalization: FeverSepsis Present Illness HPI Mr. Garcia is a 24 YO M with paraplegia, chronic indwelling Dudley catheter, decubitus ulcer, hx of ESBL UTI presenting form half-way facility for cough and fever. Patient reports that he was in his normal state of health until 3 days ago when he started to develop fever and chills in addition to worsening dry cough. Patient reports of Tmax of 101. Denies any nausea, vomiting , diarrhea, abdominal pain. No reports of sick contacts. He reports that his dudley catheter was changed about a month ago when he was hospitalized at the [facility]. On arrival to the ED, vitals remarkable for T: 101.3. CBC showed hgb: 9.4 and MCV: 79. The UA was significant for WBC: 20-30, LE: 3+ and Nitrite +. Patient is being admitted for further medical management. Allergies: Coded Allergies: CEPHALEXIN (Verified Allergy, Unknown, 06/28/17) FISH DERIVED (Unverified Allergy, Unknown, 08/29/19) MORPHINE (Verified Allergy, Unknown, 06/28/17) COVID-19 Screening Contact w/high risk pt: No Recent Travel to affected area: No Experienced COVID-19 symptoms?: No Medication History Scheduled Albuterol Sulfate (Ventolin Hfa), 2 PUFFS INH EVERY 6 HOURS, (Reported) Ascorbic Acid* (Vitamin C*), 500 MG ORAL DAILY, (Reported) Baclofen* (Baclofen*), 10 MG ORAL THREE TIMES A DAY, (Reported) Baclofen* (Baclofen*), 10 MG ORAL THREE TIMES A DAY, (Reported) Enoxaparin* (Lovenox*), 40 MG SUBQ DAILY, (Reported) Enoxaparin* (Lovenox*), 40 MG SUBQ DAILY, (Reported) Scheduled PRN Acetaminophen* (Tylenol Extra Strength*), 500 MG ORAL Q6H PRN for Mild Pain/ Temp > 100.5, (Reported) Oxycodone/Acetaminophen 5-325* (Percocet 5-325 Mg Tablet*), 1 TAB ORAL Q4H PRN for For Pain, (Reported) Miscellaneous Medications Hydromorphone HCl/Pf (Dilaudid 4 mg/ml Syringe), 4 MG PO, (Reported) Patient History Healthcare decision maker Resuscitation status Advanced Directive on File Review of Systems Constitutional: Reports: chills, fever Respiratory: Reports: cough, shortness of breath Musculoskeletal: Reports: other - Reports of pain at the site of the decubitus ulcers. Physical Exam General Appearance: alert, mild distress Lines, tubes and drains: peripheral HEENT: normocephalic, atraumatic Respiratory/Chest: lungs clear Cardiovascular/Chest: normal peripheral pulses, normal rate, regular rhythm Abdomen: normal bowel sounds Extremities: other - No ROM from waist below Skin Exam: other - Decub ulcer Neurologic: alert, oriented x 3 Last 24 Hour Vital Signs Date Time Temp Pulse Resp B/P (MAP) Pulse Ox O2 Delivery O2 Flow Rate FiO2 01/24/20 23:09 101.3 01/24/20 23:08 101.3 01/24/20 23:03 107 24 12/49 99 Room Air 01/24/20 21:20 101.3 130 16 107/47 99 Room Air 01/24/20 21:20 130 16 Room Air 01/24/20 20:47 101.1 88 16 128/78 (95) 99 Room Air Laboratory Tests Test 01/24/20 21:21 01/24/20 22:45 White Blood Count 9.4 K/UL (4.8-10.8) Red Blood Count 4.12 M/UL (4.70-6.10) L Hemoglobin 9.4 G/DL (14.2-18.0) L Hematocrit 32.4 % (42.0-52.0) L Mean Corpuscular Volume 79 FL (80-99) L Mean Corpuscular Hemoglobin 22.7 PG (27.0-31.0) L Mean Corpuscular Hemoglobin Concent 28.9 G/DL (32.0-36.0) L Red Cell Distribution Width 18.7 % (11.6-14.8) H Platelet Count 475 K/UL (150-450) H Mean Platelet Volume 5.9 FL (6.5-10.1) L Neutrophils (%) (Auto) 72.0 % (45.0-75.0) Lymphocytes (%) (Auto) 19.3 % (20.0-45.0) L Monocytes (%) (Auto) 6.9 % (1.0-10.0) Eosinophils (%) (Auto) 1.2 % (0.0-3.0) Basophils (%) (Auto) 0.7 % (0.0-2.0) Urine Color Pale yellow Urine Appearance Slightly cloudy Urine pH 7 (4.5-8.0) Urine Specific [place] 1.010 (1.005-1.035) Urine Protein 2+ (NEGATIVE) H Urine Glucose (UA) Negative (NEGATIVE) Urine Ketones Negative (NEGATIVE) Urine Blood 5+ (NEGATIVE) H Urine Nitrite Positive (NEGATIVE) H Urine Bilirubin Negative (NEGATIVE) Urine Urobilinogen Normal MG/DL (0.0-1.0) Urine Leukocyte Esterase 3+ (NEGATIVE) H Urine RBC 10-15 /HPF (0 - 0) H Urine WBC 20-30 /HPF (0 - 0) H Urine Squamous Epithelial Cells None /LPF (NONE/OCC) Urine Bacteria Many /HPF (NONE) H Sodium Level 139 MMOL/L (136-145) Potassium Level 3.4 MMOL/L (3.5-5.1) L Chloride Level 101 MMOL/L (98-107) Carbon Dioxide Level 24 MMOL/L (21-32) Anion Gap 14 mmol/L (5-15) Blood Urea Nitrogen 14 mg/dL (7-18) Creatinine 1.0 MG/DL (0.55-1.30) Estimat Glomerular Filtration Rate > 60 mL/min (>60) Glucose Level 90 MG/DL (74-106) Lactic Acid Level 2.60 mmol/L (0.4-2.0) H Pending Calcium Level 8.9 MG/DL (8.5-10.1) Phosphorus Level 3.8 MG/DL (2.5-4.9) Magnesium Level 2.1 MG/DL (1.8-2.4) Total Bilirubin 0.2 MG/DL (0.2-1.0) Aspartate Amino Transf (AST/SGOT) 23 U/L (15-37) Alanine Aminotransferase (ALT/SGPT) 24 U/L (12-78) Alkaline Phosphatase 147 U/L (46-116) H Total Creatine Kinase 44 U/L (26-308) Troponin I 0.000 ng/mL (0.000-0.056) Pro-B-Type Natriuretic Peptide 104 pg/mL (0-125) Total Protein 9.0 G/DL (6.4-8.2) H Albumin 2.8 G/DL (3.4-5.0) L Globulin 6.2 g/dL Albumin/Globulin Ratio 0.5 (1.0-2.7) L Height (Feet): 6 Height (Inches): 2.00 Weight (Pounds): 280 Assessment/Plan Assessment/Plan: 25 YO M with paraplagia, hx of ESBL UTI, sacral decubitus ulcers presenting from SNF for 3 day onset of fever and dry cough. Initial medicla work up consistent with sepsis. Patient being admitted for further observation and medical management. #Sepsis (Likely 2/2 multiple sources in etiology) #Suspected COVID-19 #Stage IV Decubitus Ulcer #Urinary Tract infection -Febrile 101.3 and Tachy: 130 on admission -Lactic acidosis: 2.6 -CXR per ED MD suggestive of diffuse b/l pulmonary infiltrates. -Trend lactic acid. -Blood cultures x 2 ordered. -Follow urine cultures. -Wound cultures. -COVID PCR. -Tylenol PRN for fever. -Albuterol PRN for SOB and wheezing. -Contact plus precaution. -Currently receiving empiric tx with Vanc, Azithromycin and flagyl. ( ANAPHYLACTIC ALLERGIC REACTION TO PCN AND CEPHALOSPORIN FAMILY) -Based on prior urine cultures from August 2019 significant for ESBL, patient benefits from tx with Ertapenem. -ID consult in the A.M. Appreciate recommendations. -Wound consult in the A.M. Appreciate surgical evaluation. #Microcytic Anemia: -Serum hgb: 9.4; MCV: 9.4 (BL) -No signs of acute bleed. -Avoid Fe in the setting of infection. -Continue to monitor. #Hypoalbuminemia #Protein deficiency malnutrition -Nutrition consult. I spent 70 minutes on this patient's case, and >50% was dedicated to counseling and/or care coordination. I spent an additional 35 minutes on review of medical records including prior records, consult notes, progress notes, procedures, imaging, labs, hemodynamics , and other clinical documentation. Santiago Abebe M.D. Jan 24, 2020 23:45
[2020-01-25 00:38] VITALS: BP 101/89
--- NOTE | 2020-01-25 00:39 | NUR ---
ED Nurse Note: pt appears diaphoretic, temperature recheck was 101.3, ERMD notified. pt still has IV abx infusing per ERMD orders. vital signs are otherwise stable. pt is able to make needs known, safety precautions are in place. pt provided with ice packs and towels for comfort. will continue to monitor and prepare for admission.
--- NOTE | 2020-01-25 01:51 | NUR ---
ED Nurse Note: report given to GULSHAN Wong
--- NOTE | 2020-01-25 01:51 | NUR ---
ED Nurse Note: admitting RN requested to wait 30 minutes to bring pt to floor as she is going on lunch right now. will continue to monitor pt and prepare for admission
--- NOTE | 2020-01-25 02:30 | NUR ---
TRANSFER TO FLOOR: Patient transferred to telemetry as ordered, per ERMD. Report given to GULSHAN Wong . Belongings were sent with pt
--- NOTE | 2020-01-25 03:15 | NUR ---
NURSE NOTES: Called and left a message with Dr. Jensen. Awaiting call back.
[2020-01-25] MEDS ORDERED: HYDROmorphone 1mg/ml Carpuject IVP PRN (03:30)
[2020-01-25] MEDS ORDERED: Hydromorphone 0.5mg/0.5ml inj IVP PRN (03:30)
--- NOTE | 2020-01-25 03:41 | NUR ---
NURSE NOTES: Dr. Irving called with the following orrders: - daily - flagyl 500 mg q8 - vanco pharm to dose - dilaudid 1mg + .5 mg for severe and moderate pain - full code - lovenox 40 daily - regular diet - cbc, cmp, mag labs - tylenol 650 q6 Will input orders and will continue to monitor.
[2020-01-25 04:00] VITALS: BP 115/74
[2020-01-25] MEDS: Vancomycin 1.5gm/NS Premix 275 ML IVPB SCH ×3 (06:19→22:02)
[2020-01-25] MEDS: metroNIDAZOLE 500mg tab ORAL SCH ×3 (06:19→22:03)
--- NOTE | 2020-01-25 07:29 | NUR ---
HAND-OFF: Report given to Charge nurse. Pt stable.
[2020-01-25 08:00] VITALS: BP 110/63
--- NOTE | 2020-01-25 08:10 | General Progress Note ---
Assessment/Plan Assessment/Plan: 25 YO M with paraplagia, hx of ESBL UTI, sacral decubitus ulcers presenting from SNF for 3 day onset of fever and dry cough. #Sepsis (multifactorial, multiple sources in etiology) #Suspected COVID-19 #Urinary Tract infection -Febrile 101.3 and Tachy: 130 on admission -Lactic acidosis: 2.6 -Contact plus droplet precaution -UA consistent w/UTI -CXR negative for acute process -BCx pending -UCx pending -COVID PCR pending -Tylenol PRN for fever. -ID Dr Parker consulted: vanc, amikacin, flagyl #Loose stools -pt noted increased stool output in colostomy bag SAP PP CONSULTANT -no abd pain at this time -c diff pending #Stage IV Decubitus Ulcer -General Sx/wound care consulted #Microcytic Anemia: -Serum hgb: 9.4; MCV: 9.4 (BL) -No signs of acute bleed. -Avoid Fe in the setting of acute infection. -Continue to monitor. #Hypoalbuminemia #Protein deficiency malnutrition -Nutrition consult. #Depression -no SI at this time -Psych consulted, recs appreciated I spent 36 minutes on this patient's case, and >50% was dedicated to counseling and/or care coordination. An additional 30 minutes on review of medical records including prior records, consult notes, progress notes, procedures, imaging, labs, hemodynamics, and other clinical documentation. Subjective Allergies: Coded Allergies: CEPHALEXIN (Verified Allergy, Unknown, 06/28/17) FISH DERIVED (Unverified Allergy, Unknown, 08/29/19) MORPHINE (Verified Allergy, Unknown, 06/28/17) Subjective F/u on sepsis. Pt states he had fevers SAP PP CONSULTANT w/associated body aches and non-productive cough. Pt currently denies CP, SOB, or fevers. Pt notes h/o depression, denies any SI at this time. Objective Last 24 Hour Vital Signs Date Time Temp Pulse Resp B/P (MAP) Pulse Ox O2 Delivery O2 Flow Rate FiO2 01/25/20 05:37 Nasal Cannula 2.0 01/25/20 04:47 97.7 01/25/20 04:00 89 01/25/20 04:00 97.7 82 18 115/74 (88) 96 01/25/20 02:48 103 01/25/20 02:30 101.3 130 22 101/89 100 Room Air 79 01/25/20 00:38 101.3 79 22 101/89 100 Room Air 01/24/20 23:09 101.3 01/24/20 23:08 101.3 01/24/20 23:03 107 24 12/49 99 Room Air 01/24/20 21:20 101.3 130 16 107/47 99 Room Air 01/24/20 21:20 130 16 Room Air 01/24/20 20:47 101.1 88 16 128/78 (95) 99 Room Air Intake and Output 01/24/20 01/25/20 19:00 07:00 Output Total 300 ml Balance -300 ml Output Urine Total 300 ml # Bowel Movements 1 Laboratory Tests 01/24/20 21:21: White Blood Count 9.4, Red Blood Count 4.12L, Hemoglobin 9.4L, Hematocrit 32.4L , Mean Corpuscular Volume 79L, Mean Corpuscular Hemoglobin 22.7L, Mean Corpuscular Hemoglobin Concent 28.9L, Red Cell Distribution Width 18.7H, Platelet Count 475H, Mean Platelet Volume 5.9L, Neutrophils (%) (Auto) 72.0, Lymphocytes (%) (Auto) 19.3L, Monocytes (%) (Auto) 6.9, Eosinophils (%) (Auto) 1.2, Basophils (%) (Auto) 0.7, Urine Color Pale yellow, Urine Appearance Slightly cloudy, Urine pH 7, Urine Specific [place] 1.010, Urine Protein 2+H, Urine Glucose (UA) Negative, Urine Ketones Negative, Urine Blood 5+H, Urine Nitrite PositiveH, Urine Bilirubin Negative, Urine Urobilinogen Normal, Urine Leukocyte Esterase 3+H, Urine RBC 10-15H, Urine WBC 20-30H, Urine Squamous Epithelial Cells None, Urine Bacteria ManyH, Sodium Level 139, Potassium Level 3.4L, Chloride Level 101, Carbon Dioxide Level 24, Anion Gap 14, Blood Urea Nitrogen 14, Creatinine 1.0, Estimat Glomerular Filtration Rate > 60, Glucose Level 90, Lactic Acid Level 2.60H, Calcium Level 8.9, Phosphorus Level 3.8, Magnesium Level 2.1, Total Bilirubin 0.2, Aspartate Amino Transf (AST/SGOT) 23, Alanine Aminotransferase (ALT/SGPT) 24, Alkaline Phosphatase 147H, Total Creatine Kinase 44, Troponin I 0.000, Pro-B-Type Natriuretic Peptide 104, Total Protein 9.0H, Albumin 2.8L, Globulin 6.2, Albumin/Globulin Ratio 0.5L 01/24/20 22:45: Lactic Acid Level 1.00 Height (Feet): 6 Height (Inches): 2.00 Weight (Pounds): 280 Objective General: NAD, A&O x 3 HEENT: NCAT, EOMi, MMM CV: RRR, Pulm: CTAB, No wheezes, rhonchi, or rales, no accessory muscle usage or conversational dyspnea GI: Soft, nontender, nondistended, bowel sounds present, +colostomy bag in place w/brown stool noted Ext: No lower extremity edema bilaterally Skin: healing abd wound in LLQ Dali Sam M.D. Jan 25, 2020 08:10
--- NOTE | 2020-01-25 08:55 | Diagnostic Imaging Report ---
Indication: Cough Technique: One view of the chest Comparison: 08/29/2019 Findings: Femoral fragments are seen projected over the right chest and left supraclavicular region. Old healed rib fracture deformities are seen on the right. The lungs and pleural spaces are clear. The heart size is normal. There is extensive cervical and thoracic spinal fusion hardware. Findings are unchanged Impression: No acute process
--- NOTE | 2020-01-25 09:07 | NUR ---
RD ASSESSMENT & RECOMMENDATIONS SEE CARE ACTIVITY FOR COMPLETE ASSESSMENT DAILY ESTIMATED NEEDS: Needs based on paraplegia, wound, sepsis, obese 95.6kg adj 20-25 kcals/kg [id number] total kcals 1.25-2 g protein/kg 120-191 g total protein 25-30 mL/kg [id number] total fluid mLs NUTRITION DIAGNOSIS: 1) Increase Kcal and protein needs r/t wound healing as evidenced by pt w/ multiple advanced wounds, wound care eval is pending. 2) Altered GI function r/t colostomy as evidenced by h/o paraplegia with colostomy. (CURRENT DIET: Regular) PO DIET RECOMMENDATIONS: Cardiac diet (no corn, beans, fried foods, seafood) ------- ADDITIONAL RECOMMENDATIONS: 1) Per SNF: 6'2" and 271# 2) Wound care: (f/up w/ WC eval) add KIKO BID + MVI w/ min + Vit C 2500mg BID 3) High protein snacks in b/w meals 4) Maintain calibrated bed scale wts 5) Monitor lytes daily (K low 3.4), replete prn.
[2020-01-25] MEDS: Enoxaparin 40mg Inj SUBQ SCH (09:18)
[2020-01-25] MEDS: HYDROmorphone 1mg/ml Carpuject IVP PRN ×4 (09:21→22:03)
[2020-01-25 09:51] LABS: BASOPHILS % (AUTO) 0.5 % (0.0-2.0); HEMATOCRIT 26.5 % (42.0-52.0); HEMOGLOBIN 8.1 G/DL (14.2-18.0); LYMPHOCYTES % (AUTO) 22.7 % (20.0-45.0); MEAN CORPUSCULAR VOLUME 75 FL (80-99); MONOCYTES % (AUTO) 9.3 % (1.0-10.0); NEUTROPHILS % (AUTO) 66.5 % (45.0-75.0); PLATELET COUNT 362 K/UL (150-450); RED BLOOD COUNT 3.53 M/UL (4.70-6.10); RED CELL DISTRIBUTION WIDTH 17.1 % (11.6-14.8); WHITE BLOOD COUNT 6.4 K/UL (4.8-10.8)
--- NOTE | 2020-01-25 10:33 | NUR ---
*-* NO INSURANCE INFORMATION IN THE BAR UNABLE TO SEND CLINICALS OR REVIEWS *-*
--- NOTE | 2020-01-25 10:35 | NUR ---
*-* INSURANCE *-* ALL AVAILABLE CLINICALS HAVE BEEN FAXED TO: TASHA HINTON NCM:SUNDEEP ext [phone] Biology Teacher Nazario Ayala [phone]
[2020-01-25 10:36] LABS: ALANINE AMINOTRANSFERASE 19 U/L (12-78); ALBUMIN 2.2 G/DL (3.4-5.0); ALBUMIN/GLOBULIN RATIO 0.4 (1.0-2.7); ALKALINE PHOSPHATASE 105 U/L (46-116); ANION GAP 10 mmol/L (5-15); ASPARTATE AMINO TRANSFERASE 18 U/L (15-37); BILIRUBIN,TOTAL 0.2 MG/DL (0.2-1.0); BLOOD UREA NITROGEN 13 mg/dL (7-18); CALCIUM 8.4 MG/DL (8.5-10.1); CARBON DIOXIDE 24 MMOL/L (21-32); CHLORIDE 104 MMOL/L (98-107); CREATININE 0.7 MG/DL (0.55-1.30); PHOSPHORUS 3.7 MG/DL (2.5-4.9); SODIUM 138 MMOL/L (136-145)
[2020-01-25] MEDS ORDERED: Amikacin Rx to dose MISC PRN (11:30)
--- NOTE | 2020-01-25 11:32 | Infectious Diseases Prog Note ---
Assessment/Plan Assessment/Plan Full consult dictated: A) 1) uti, fevers, hx esbl 2) rule out covid-19 infection 3) sacral wound 4) chest x-ray - negative P) 1) vancomycin, amikacin, flagy l 2) check urine culture, labs 3) await covid-19 testing 4) d/w Dr. Sam Subjective Allergies: Coded Allergies: CEPHALEXIN (Verified Allergy, Unknown, 06/28/17) FISH DERIVED (Unverified Allergy, Unknown, 08/29/19) MORPHINE (Verified Allergy, Unknown, 06/28/17) Objective Vital Signs Last 24 Hour Vital Signs Date Time Temp Pulse Resp B/P (MAP) Pulse Ox O2 Delivery O2 Flow Rate FiO2 01/25/20 05:37 Nasal Cannula 2.0 01/25/20 04:47 97.7 01/25/20 04:00 89 01/25/20 04:00 97.7 82 18 115/74 (88) 96 01/25/20 02:48 103 01/25/20 02:30 101.3 130 22 101/89 100 Room Air 79 01/25/20 00:38 101.3 79 22 101/89 100 Room Air 01/24/20 23:09 101.3 01/24/20 23:08 101.3 01/24/20 23:03 107 24 12/49 99 Room Air 01/24/20 21:20 101.3 130 16 107/47 99 Room Air 01/24/20 21:20 130 16 Room Air 01/24/20 20:47 101.1 88 16 128/78 (95) 99 Room Air Height (Feet): 6 Height (Inches): 2.00 Weight (Pounds): 280 Laboratory Tests Test 01/24/20 21:21 01/24/20 22:45 01/25/20 09:40 White Blood Count 9.4 K/UL (4.8-10.8) 6.4 K/UL (4.8-10.8) Red Blood Count 4.12 M/UL (4.70-6.10) L 3.53 M/UL (4.70-6.10) L Hemoglobin 9.4 G/DL (14.2-18.0) L 8.1 G/DL (14.2-18.0) L Hematocrit 32.4 % (42.0-52.0) L 26.5 % (42.0-52.0) L Mean Corpuscular Volume 79 FL (80-99) L 75 FL (80-99) L Mean Corpuscular Hemoglobin 22.7 PG (27.0-31.0) L 22.9 PG (27.0-31.0) L Mean Corpuscular Hemoglobin Concent 28.9 G/DL (32.0-36.0) L 30.6 G/DL (32.0-36.0) L Red Cell Distribution Width 18.7 % (11.6-14.8) H 17.1 % (11.6-14.8) H Platelet Count 475 K/UL (150-450) H 362 K/UL (150-450) Mean Platelet Volume 5.9 FL (6.5-10.1) L 4.9 FL (6.5-10.1) L Neutrophils (%) (Auto) 72.0 % (45.0-75.0) 66.5 % (45.0-75.0) Lymphocytes (%) (Auto) 19.3 % (20.0-45.0) L 22.7 % (20.0-45.0) Monocytes (%) (Auto) 6.9 % (1.0-10.0) 9.3 % (1.0-10.0) Eosinophils (%) (Auto) 1.2 % (0.0-3.0) 1.0 % (0.0-3.0) Basophils (%) (Auto) 0.7 % (0.0-2.0) 0.5 % (0.0-2.0) Urine Color Pale yellow Urine Appearance Slightly cloudy Urine pH 7 (4.5-8.0) Urine Specific [place] 1.010 (1.005-1.035) Urine Protein 2+ (NEGATIVE) H Urine Glucose (UA) Negative (NEGATIVE) Urine Ketones Negative (NEGATIVE) Urine Blood 5+ (NEGATIVE) H Urine Nitrite Positive (NEGATIVE) H Urine Bilirubin Negative (NEGATIVE) Urine Urobilinogen Normal MG/DL (0.0-1.0) Urine Leukocyte Esterase 3+ (NEGATIVE) H Urine RBC 10-15 /HPF (0 - 0) H Urine WBC 20-30 /HPF (0 - 0) H Urine Squamous Epithelial Cells None /LPF (NONE/OCC) Urine Bacteria Many /HPF (NONE) H Sodium Level 139 MMOL/L (136-145) 138 MMOL/L (136-145) Potassium Level 3.4 MMOL/L (3.5-5.1) L 3.0 MMOL/L (3.5-5.1) L Chloride Level 101 MMOL/L (98-107) 104 MMOL/L (98-107) Carbon Dioxide Level 24 MMOL/L (21-32) 24 MMOL/L (21-32) Anion Gap 14 mmol/L (5-15) 10 mmol/L (5-15) Blood Urea Nitrogen 14 mg/dL (7-18) 13 mg/dL (7-18) Creatinine 1.0 MG/DL (0.55-1.30) 0.7 MG/DL (0.55-1.30) Estimat Glomerular Filtration Rate > 60 mL/min (>60) > 60 mL/min (>60) Glucose Level 90 MG/DL (74-106) 121 MG/DL (74-106) H Lactic Acid Level 2.60 mmol/L (0.4-2.0) H 1.00 mmol/L (0.66-2.22) 0.80 mmol/L (0.4-2.0) Calcium Level 8.9 MG/DL (8.5-10.1) 8.4 MG/DL (8.5-10.1) L Phosphorus Level 3.8 MG/DL (2.5-4.9) 3.7 MG/DL (2.5-4.9) Magnesium Level 2.1 MG/DL (1.8-2.4) 2.0 MG/DL (1.8-2.4) Total Bilirubin 0.2 MG/DL (0.2-1.0) 0.2 MG/DL (0.2-1.0) Aspartate Amino Transf (AST/SGOT) 23 U/L (15-37) 18 U/L (15-37) Alanine Aminotransferase (ALT/SGPT) 24 U/L (12-78) 19 U/L (12-78) Alkaline Phosphatase 147 U/L (46-116) H 105 U/L (46-116) Total Creatine Kinase 44 U/L (26-308) Troponin I 0.000 ng/mL (0.000-0.056) Pro-B-Type Natriuretic Peptide 104 pg/mL (0-125) Total Protein 9.0 G/DL (6.4-8.2) H 7.4 G/DL (6.4-8.2) Albumin 2.8 G/DL (3.4-5.0) L 2.2 G/DL (3.4-5.0) L Globulin 6.2 g/dL 5.2 g/dL Albumin/Globulin Ratio 0.5 (1.0-2.7) L 0.4 (1.0-2.7) L Current Medications Medications (Trade) Dose Ordered Sig/Pedro Route PRN Reason Start Time Stop Time Status Last Admin Dose Admin Acetaminophen (Tylenol) 650 mg Q6H PRN ORAL For Headache 01/25/20 03:30 02/24/20 03:29 01/25/20 04:17 Azithromycin 250 mg/Dextrose 275 ml @ 275 mls/hr Q24HRS IV 01/25/20 22:00 01/30/20 21:59 Enoxaparin Sodium (Lovenox) 40 mg DAILY SUBQ 01/25/20 09:00 04/24/20 08:59 01/25/20 09:18 Hydromorphone HCl (Dilaudid) 0.5 mg Q4H PRN IVP For moderate/breakthrough Pain 01/25/20 07:45 02/01/20 03:29 Hydromorphone HCl (Dilaudid) 1 mg Q4H PRN IVP Severe Pain (Pain Scale 7-10) 01/25/20 08:30 02/01/20 08:29 01/25/20 09:21 Metronidazole (Flagyl) 500 mg Q8HR ORAL 01/25/20 06:00 02/01/20 05:59 01/25/20 06:19 Sodium Chloride 1,000 ml @ 100 mls/hr Q10H IV 01/25/20 06:00 02/24/20 05:59 01/25/20 06:20 Vancomycin HCl (Vanco rx to dose) 1 ea DAILY PRN MISC Per rx protocol 01/25/20 03:30 02/24/20 03:29 Vancomycin/Sodium Chloride 275 ml @ 137.5 mls/ hr Q8H IVPB 4/23/20 06:00 01/30/20 05:59 01/25/20 06:19 Rema Parker MD Jan 25, 2020 11:32
[2020-01-25 12:00] VITALS: BP 125/59
--- NOTE | 2020-01-25 12:09 | NUR ---
CASE MANAGEMENT:REVIEW 24 YR OLD MALE BIBA FROM [facility] CC: FEVER OF 104.0 PMH: PARAPLEGIC. COLOSTOMY. DECUB SI: SUSPECTED COVID 19 101.2 88 16 128/78 99% ON RA H/H-9.4/32.4 IS: TYLENOL PO IV VANCOMYCIN IV FLAGYL 1L NS BOLUS IV DILAUDID BLOOD AND URINE CX CHEST XRAY : TO TELEMETRY DCP: FROM [facility] PLAN: F/U COVID 19
[2020-01-25] MEDS ORDERED: Amikacin 1,500 MG in NS 110 ML IV SCH (13:00)
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
[2020-01-25 16:00] VITALS: BP 117/51
[2020-01-25] MEDS: AMIKACIN IV SCH (16:54)
[2020-01-25] MEDS: NS IV SCH (16:54)
--- NOTE | 2020-01-25 19:35 | NUR ---
HAND-OFF: Report given to Atul/GULSHAN.
--- NOTE | 2020-01-25 19:49 | NUR ---
NURSE NOTES: Received patient report from GULSHAN Viera. Patient AO x 4. Patient shows no signs of distress or pain at the time. IV is patents. No signs of infiltration, bleeding, or erythema. Bed in the lowest position, call light within reach, side rails up x 3 and padded, and bed brakes on. Will continue plan of care.
[2020-01-25 20:00] VITALS: BP 110/63
[2020-01-25] MEDS ORDERED: Azithromycin 250 MG in D5W 275 ML IV SCH (22:00)
[2020-01-26] VITALS: BP 115/72
--- NOTE | 2020-01-26 00:07 | NUR ---
Patient had a fever of 101.7 and I gave tylenol, patient is now complaining of itchiness on his arms and his fever is at 101.5. Called Dr. Jensen and left a message, awaiting call back.
--- NOTE | 2020-01-26 00:37 | NUR ---
Dr. Sam called back. Ordered Benadryl 25 mg Q 8 PRN.
[2020-01-26] MEDS: Hydromorphone 0.5mg/0.5ml inj IVP PRN ×3 (02:04→12:43)
[2020-01-26 04:00] VITALS: BP 116/68
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
[2020-01-26 06:23] LABS: BASOPHILS % (AUTO) 0.5 % (0.0-2.0); EOSINOPHILS % (AUTO) 0.8 % (0.0-3.0); HEMATOCRIT 27.2 % (42.0-52.0); HEMOGLOBIN 8.2 G/DL (14.2-18.0); LYMPHOCYTES % (AUTO) 24.3 % (20.0-45.0); MEAN CORPUSCULAR VOLUME 75 FL (80-99); MONOCYTES % (AUTO) 5.3 % (1.0-10.0); NEUTROPHILS % (AUTO) 69.1 % (45.0-75.0); PLATELET COUNT 416 K/UL (150-450); RED BLOOD COUNT 3.62 M/UL (4.70-6.10); WHITE BLOOD COUNT 7.5 K/UL (4.8-10.8)
[2020-01-26] MEDS: metroNIDAZOLE 500mg tab ORAL SCH ×3 (06:52→22:16)
[2020-01-26] MEDS: Vancomycin 1.5gm/NS Premix 275 ML IVPB SCH (06:52)
[2020-01-26 06:54] LABS: ANION GAP 11 mmol/L (5-15); BLOOD UREA NITROGEN 7 mg/dL (7-18); CALCIUM 8.5 MG/DL (8.5-10.1); CARBON DIOXIDE 24 MMOL/L (21-32); CHLORIDE 102 MMOL/L (98-107); CREATININE 0.6 MG/DL (0.55-1.30); POTASSIUM 3.2 MMOL/L (3.5-5.1); SODIUM 137 MMOL/L (136-145)
[2020-01-26 08:00] VITALS: BP 126/88
--- NOTE | 2020-01-26 08:07 | NUR ---
HAND-OFF: Report given to GULSHAN Mata. Patient shows no signs of distress at the time. Endorsed plan of care.
[2020-01-26] MEDS: Enoxaparin 40mg Inj SUBQ SCH (09:00)
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
--- NOTE | 2020-01-26 10:09 | NUR ---
CASE MANAGEMENT:REVIEW 01/26/20 SI: SEPSIS. SUSPECTED COVID 19 STAGE IV DECUB ULCER 99.7 75 18 116/68 99% ON 2L/NC H/H-8.2/27.2 K-3.2 IS: IV VANCOMYCIN Q8HRS IV AMIKACIN Q24 IVF@100/HR K-DUR PO X1 LOVENOX SQ QD : TELEMETRY STATUS DCP: FROM [facility] PLAN: COVID 19 RESULTS PENDING
[2020-01-26 12:00] VITALS: BP 139/79
[2020-01-26] MEDS: DiphenhydrAMINE 25mg Tab ORAL PRN (12:43)
[2020-01-26] MEDS: AMIKACIN IV SCH (13:00)
[2020-01-26] MEDS: NS IV SCH (13:00)
--- NOTE | 2020-01-26 13:03 | NUR ---
*-* INSURANCE *-* ALL AVAILABLE CLINICALS HAVE BEEN FAXED TO: TASHA HINTON NCM:SUNDEEP ext [phone] Technical Staff Engineer Nazario Ayala [phone]
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
--- NOTE | 2020-01-26 13:38 | NUR ---
NURSE NOTES:WOUND CARE NOTES:Pt presented with multiple Full thickness pressure injuries to buttocks.Full thickness ulcer L sacrum.Hugoton granulation at base of wound. Full thickness pressure injury with tunneling L lower buttocks. Hugoton granulation at base of wound. Bone is palpable. Mild odor noted. Necrotic area noted R of rectum. Full thickness ulcer upper R buttocks. Base of wound is moist ,pink with small amt biofilm. Full thickness pressure injury mid-sacrum with malformed flap. Base of wound is pink moist with small amt biofilm. Mild odor noted. Two Full thickness pressure injury Lower R buttocks. Wounds are in close proximity. Mild odor noted.Small amt serous exudate noted Both wounds are granular at base. Surrounding areas of buttocks are macerated with non-blanching erythema. Bilat foot drop noted. Hyperpigmentation from previous wound R heel .Hyperpigmentation from previous wound noted to L heel.Historical scar noted to dorsal L foot . Tx.Plan: Cleanse wounds buttocks with Dakin's 0.125% Lois. . Loosely pack wounds with Dakin's moistened Kerlix. Apply Moisture Barrier Paste to areas around wounds. Cover with ABD Pads and Secure with PAPER TAPE Daily and prn. Apply Cavilon Skin BArrier to both heels. Cover each heel with Optifoam drsg.Change every 7 days and prn. APM/GRETA Mattress overlay. Reposition at least every 2hours or as tolerated. Off-load heels with pillow.
[2020-01-26] MEDS ORDERED: Vancomycin 1.5 GM in NS 275 ML IVPB SCH (14:00)
--- NOTE | 2020-01-26 19:30 | NUR ---
NURSE NOTES: Received pt and report from GULSHAN Mata. Observed pt resting in bed with both eyes open and watching television. Pt is A/Ox4. court recording monitor is in placed; pt is NSR. Pt currently has no IV access. Multiple IV insertion attempts done during dayshift but was unsuccessful. Will attempt IV insertion again. Pt has a Lt lower quad colostomy; stool is liquid and brown in color. Pt has a Mackay in placed for retention; patent and urine is yellow in color. Bed is in the lowest position and locked. Call light and bedside table is within reach. No signs/symptoms of acute distress noted at this time. Will continue plan of care.
[2020-01-26 20:00] VITALS: BP 136/61
--- NOTE | 2020-01-26 21:11 | Infectious Diseases Prog Note ---
Assessment/Plan Assessment/Plan Full consult dictated: A) 1) gram neg uti, fevers, hx esbl 2) rule out covid-19 infection 3) sacral wound infection 4) chest x-ray - negative 5) allergies - keflex P) 1) vancomycin, amikacin, flagy - day # 2 2) check urine culture, labs 3) await covid-19 testing 4) wound care Subjective Allergies: Coded Allergies: CEPHALEXIN (Verified Allergy, Unknown, 06/28/17) FISH DERIVED (Unverified Allergy, Unknown, 08/29/19) MORPHINE (Verified Allergy, Unknown, 06/28/17) Objective Vital Signs Last 24 Hour Vital Signs Date Time Temp Pulse Resp B/P (MAP) Pulse Ox O2 Delivery O2 Flow Rate FiO2 01/26/20 16:00 85 01/26/20 16:00 93 01/26/20 12:00 87 01/26/20 12:00 98.7 89 20 139/79 (99) 98 01/26/20 08:00 100.9 94 18 126/88 (101) 96 01/26/20 08:00 94 01/26/20 07:48 Nasal Cannula 2.0 01/26/20 07:22 99.0 01/26/20 04:00 99.7 69 18 116/68 (84) 99 01/26/20 04:00 75 01/26/20 00:00 99.0 84 18 115/72 (86) 96 01/26/20 00:00 100 01/25/20 22:44 100.2 01/25/20 22:30 101.7 Height (Feet): 6 Height (Inches): 2.00 Weight (Pounds): 280 Microbiology Date/Time Source Procedure Growth Status 01/24/20 21:20 Blood Blood Culture - Preliminary NO GROWTH AFTER 24 HOURS Resulted 01/24/20 21:10 Blood Blood Culture - Preliminary NO GROWTH AFTER 24 HOURS Resulted 01/24/20 21:21 Urine,Clean Catch Urine Culture - Preliminary Gram Negative Warenr Resulted Laboratory Tests Test 01/26/20 05:25 White Blood Count 7.5 K/UL (4.8-10.8) Red Blood Count 3.62 M/UL (4.70-6.10) L Hemoglobin 8.2 G/DL (14.2-18.0) L Hematocrit 27.2 % (42.0-52.0) L Mean Corpuscular Volume 75 FL (80-99) L Mean Corpuscular Hemoglobin 22.7 PG (27.0-31.0) L Mean Corpuscular Hemoglobin Concent 30.3 G/DL (32.0-36.0) L Red Cell Distribution Width 17.0 % (11.6-14.8) H Platelet Count 416 K/UL (150-450) Mean Platelet Volume 5.5 FL (6.5-10.1) L Neutrophils (%) (Auto) 69.1 % (45.0-75.0) Lymphocytes (%) (Auto) 24.3 % (20.0-45.0) Monocytes (%) (Auto) 5.3 % (1.0-10.0) Eosinophils (%) (Auto) 0.8 % (0.0-3.0) Basophils (%) (Auto) 0.5 % (0.0-2.0) Sodium Level 137 MMOL/L (136-145) Potassium Level 3.2 MMOL/L (3.5-5.1) L Chloride Level 102 MMOL/L (98-107) Carbon Dioxide Level 24 MMOL/L (21-32) Anion Gap 11 mmol/L (5-15) Blood Urea Nitrogen 7 mg/dL (7-18) Creatinine 0.6 MG/DL (0.55-1.30) Estimat Glomerular Filtration Rate > 60 mL/min (>60) Glucose Level 98 MG/DL (74-106) Calcium Level 8.5 MG/DL (8.5-10.1) Random Amikacin Level 2.1 MG/L Vancomycin Level Trough 14.5 ug/mL (5.0-12.0) H Current Medications Medications (Trade) Dose Ordered Sig/Pedro Route PRN Reason Start Time Stop Time Status Last Admin Dose Admin Acetaminophen (Tylenol) 650 mg Q6H PRN ORAL For Headache 01/25/20 03:30 02/24/20 03:29 01/25/20 22:14 Amikacin Protocol (Amikacin pharmacy to dose) 1 ea DAILY PRN MISC Per rx protocol 01/25/20 11:30 02/24/20 11:29 Amikacin Sulfate 1500 mg/Sodium Chloride 281 ml @ 281 mls/hr Q24H IV 01/25/20 13:00 02/01/20 12:59 01/26/20 13:00 Diphenhydramine HCl (Benadryl) 25 mg Q8H PRN ORAL Itching 01/26/20 00:30 02/25/20 00:29 01/26/20 12:43 Enoxaparin Sodium (Lovenox) 40 mg DAILY SUBQ 01/25/20 09:00 04/24/20 08:59 01/26/20 09:00 Escitalopram Oxalate (Lexapro) 10 mg DAILY ORAL 01/26/20 09:00 02/25/20 08:59 01/26/20 09:00 Hydromorphone HCl (Dilaudid) 0.5 mg Q4H PRN IVP For moderate/breakthrough Pain 01/25/20 07:45 02/01/20 03:29 01/26/20 12:43 Hydromorphone HCl (Dilaudid) 1 mg Q4H PRN IVP Severe Pain (Pain Scale 7-10) 01/25/20 08:30 02/01/20 08:29 01/25/20 22:03 Metronidazole (Flagyl) 500 mg Q8HR ORAL 01/25/20 06:00 02/01/20 05:59 01/26/20 14:18 Sodium Hypochlorite (Dakin's Quarter Strength) 1 applic DAILY TOPIC 01/27/20 09:00 02/26/20 08:59 Sodium Chloride 1,000 ml @ 100 mls/hr Q10H IV 01/25/20 06:00 02/24/20 05:59 01/26/20 12:00 Vancomycin HCl (Vanco rx to dose) 1 ea DAILY PRN MISC Per rx protocol 01/25/20 03:30 02/24/20 03:29 Vancomycin HCl 1.5 gm/Sodium Chloride 275 ml @ 137.5 mls/ hr Q8H IVPB 01/26/20 14:00 01/31/20 13:59 01/26/20 14:18 Rema Parker MD Jan 26, 2020 21:11
--- NOTE | 2020-01-26 21:40 | NUR ---
NURSE NOTES: Attempted IV insertion on pt twice but was unsuccessful. Will give pt a break and ask another nurse to attempt IV insertion again.
[2020-01-27] VITALS: BP 139/72
[2020-01-27] MEDS: Vancomycin 1.5 GM in NS 275 ML IVPB SCH ×3 (00:19→17:24)
[2020-01-27] MEDS: HYDROmorphone 1mg/ml Carpuject IVP PRN ×5 (00:20→17:29)
--- NOTE | 2020-01-27 00:25 | NUR ---
NURSE NOTES: Successfully inserted IV on Lt hand 24G. Administered NS 1000mL IVPB @100cc/hr and Vancomycin 1.5gm IVPB. Will monitor pt closely.
[2020-01-27 04:00] VITALS: BP 125/75
[2020-01-27] MEDS: metroNIDAZOLE 500mg tab ORAL SCH ×3 (05:09→20:53)
--- NOTE | 2020-01-27 05:44 | Consultation ---
DATE OF CONSULTATION: 01/26/2020 INFECTIOUS DISEASE CONSULTATION CONSULTING PHYSICIAN: Rema Parker M.D. ATTENDING PHYSICIAN: Elenita Jensen M.D. REFERRING PHYSICIAN: Dr. Sam. REASON FOR CONSULTATION: Gram-negative UTI, pyelonephritis, fevers, sepsis, sacral wound infection, possible COVID-19 virus infection. CHIEF COMPLAINT: Patient's chief complaint coming in to the hospital is fever, UTI. HISTORY OF PRESENT ILLNESS: This is a 24-year-old male who has a history of paraplegia and Mackay and decubitus ulcer and history of ESBL E. coli UTI. Patient presents to [facility] with fevers, sepsis, SIRS criteria. Workup shows he has is gram-negative UTI, pyelonephritis, possible sacral wound infection, rule out COVID-19 virus infection. Patient is allergic to cephalexin. Patient is placed on Vanco, amikacin, and Flagyl pending workup. Case discussed with Dr. Sam. Chest x-ray is negative. REVIEW OF SYSTEMS: CONSTITUTIONAL: Main issue he is come in with fever and chills. He has generalized fatigue and weakness. He does have some dry cough, but no severe shortness of breath. CARDIAC: No chest pain. GASTROINTESTINAL: No nausea, vomiting, or diarrhea. GENITOURINARY: He has a Mackay. PULMONARY: No significant shortness of breath. SKIN: No rash. NEUROLOGIC: No seizures. PAST MEDICAL HISTORY: Patient has a past medical history of sacral wound, paraplegia, history of Mackay, decubitus ulcer, ESBL UTI, recurrent UTI. No history of diabetes or hypertension. ALLERGIES: Cephalexin, fish, and morphine. SOCIAL HISTORY: Negative for smoking, alcohol, drug abuse. FAMILY HISTORY: Noncontributory. MEDICATIONS: Upon reviewing the MAR, he is on following medications. He is on sodium, vancomycin, amikacin, Flagyl. He is on Lexapro, Benadryl, hydromorphone, enoxaparin. Antibiotics, Vanco, Levaquin, Flagyl. IV fluids. Outside medications noted and reconciliated. PHYSICAL EXAMINATION: VITAL SIGNS: Temperature is 98.7, pulse rate 89, respiratory rate 20, blood pressure 139/79, saturation 98%. Temperature has been as high as 101.3 and pulse rate has been as high as 130. Respiratory rate has been as high as 24. GENERAL: Alert, responsive. Oriented x3. HEAD AND NECK: Oral exam, no thrush. Eye exam, no icterus. Normocephalic. Neck is supple. HEART: Regular. No gallop or murmur. ABDOMEN: Soft. Positive bowel sounds. Nontender. LUNGS: Clear bilaterally. No rhonchi or rales. SKIN: No rash. He has a sacral wound. Pictures were reviewed, looks like there is slough. MUSCULOSKELETAL: No effusion. Legs are without cellulitis. PERIPHERAL VASCULAR: No cyanosis or gangrene. GENITOURINARY: He has a Mackay. Urine is cloudy. LINE SITES: Without phlebitis. NEUROLOGIC: Paraplegic. LABORATORY DATA: White count 7.5, hemoglobin 8.2. Creatinine is 0.6. Blood cultures are negative. Urine culture with gram-negative rods. Urinalysis had positive nitrite, 3+ leukocyte esterase, many bacteria, and 23 white blood cells. COVID-19 virus testing is pending. Chest x-ray showed no acute disease noted and reviewed. No acute process. ASSESSMENT AND PLAN: 1. Patient has gram-negative UTI, pyelonephritis, sepsis, fevers, history of ESBL organisms. Rule out COVID-19 virus infection. Rule out sacral wound infection. Continue amikacin, Vanco, and Flagyl for MRSA gram-negative anaerobic coverage. Continue Vanco, amikacin, and Flagyl for gram-negative UTI, sepsis, fevers. Check urine culture. Continue wound care protocol. Chest x-ray is negative. Await COVID-19 virus testing. I have low suspicion for COVID-19 infection in patient. 2. Patient has paraplegia. 3. Chronic Mackay. 4. Sacral wound. 5. Wound care protocol. 6. History of recurrent UTI including ESBL organisms. 7. Paraplegia, chronic Mackay. 8. Comes from [facility]. 9. Allergies to cephalexin, fish, morphine. 10. Social history negative. 11. Family history noncontributory. 12. MAR was noted. 13. Case discussed with RN. 14. Case discussed with Dr. Sam. 15. Case was discussed with the patient. Salam Alkasspooles, M.D. DR: CRAIG JOB#: [id number] CC:
--- NOTE | 2020-01-27 07:30 | NUR ---
NURSE NOTES:NURSE NOTES:Handoff received from My,RN. Patient received awake and alert and able to make needs known, no acute signs of distress noted. Patient is on isolation for R/O Covid and MRSA wound, VRE rectum. On room air, IV site clean dry and intact, running prescribed fluids. Bed in the low and locked position with call light within reach, will continue to monitor patient.
--- NOTE | 2020-01-27 07:32 | NUR ---
HAND-OFF: Report given to GULSHAN Ayon. Plan of care endorsed.
[2020-01-27 08:00] VITALS: BP 130/64
[2020-01-27] MEDS: Dakin's 0.125% Soln (Quarter Strength) 16oz TOPIC SCH (09:00)
[2020-01-27] MEDS: Enoxaparin 40mg Inj SUBQ SCH (09:28)
[2020-01-27 09:53] LABS: BASOPHILS % (AUTO) 0.3 % (0.0-2.0); EOSINOPHILS % (AUTO) 0.7 % (0.0-3.0); HEMATOCRIT 28.1 % (42.0-52.0); HEMOGLOBIN 8.5 G/DL (14.2-18.0); LYMPHOCYTES % (AUTO) 24.6 % (20.0-45.0); MEAN CORPUSCULAR VOLUME 74 FL (80-99); MONOCYTES % (AUTO) 8.1 % (1.0-10.0); NEUTROPHILS % (AUTO) 66.3 % (45.0-75.0); PLATELET COUNT 419 K/UL (150-450); RED BLOOD COUNT 3.77 M/UL (4.70-6.10); WHITE BLOOD COUNT 8.1 K/UL (4.8-10.8)
[2020-01-27] MEDS ORDERED: NS 275ml ONE (09:59)
[2020-01-27] MEDS ORDERED: Tubing IV Secondary IV ONE (09:59)
--- NOTE | 2020-01-27 10:03 | NUR ---
NURSE NOTES: Dilaudid plunger was not attached and there was no dilaudid in the vial. Contacted Pharmacy who advised to waste with another RN in the x. Wasted Dilaudi Addendum: 01/27/20 at 1007 by Gabo Glaser RN wasted Dilaudid with GULSHAN Pickett. Vial was empty. After wasting I pulled another vial to administer to the patient.
[2020-01-27 10:15] LABS: ANION GAP 13 mmol/L (5-15); BLOOD UREA NITROGEN 8 mg/dL (7-18); CALCIUM 8.8 MG/DL (8.5-10.1); CARBON DIOXIDE 23 MMOL/L (21-32); CHLORIDE 104 MMOL/L (98-107); CREATININE 0.7 MG/DL (0.55-1.30); POTASSIUM 3.1 MMOL/L (3.5-5.1); SODIUM 140 MMOL/L (136-145)
--- NOTE | 2020-01-27 11:38 | NUR ---
NURSE NOTES:Called and left a message for [facility] as patient is requesting Baclofen, Gabapentin, Anti- nausea medication and an anti-anxiety medication. awaiting call back.
--- NOTE | 2020-01-27 11:40 | NUR ---
NURSE NOTES:Called and let a message for Dr Quigley to notify him that patients Covid19 result came back as positive.
[2020-01-27 12:00] VITALS: BP 137/68
[2020-01-27] MEDS: AMIKACIN IV SCH (13:26)
[2020-01-27] MEDS: NS IV SCH (13:26)
[2020-01-27 16:00] VITALS: BP 124/58
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
--- NOTE | 2020-01-27 18:00 | NUR ---
NURSE NOTES: Contacted Dr Dueñas as patient has a brief episode of Sinus daniel with junctional. MD Dueñas aware. Also got TO/RB order for Vistoril 25mg PO PRN Q6 hours for anxiety. Order entered.
--- NOTE | 2020-01-27 19:20 | NUR ---
NURSE NOTES: Report received from GULSHAN Ayon. Patient alert, awake, and responsive. AOx4. No shortness of breath or signs of acute distress. IV on left middle finger, intact and flushed, complaining of slight pain at the site. Dressings dry and intact, will continue wound care as planned. Bed in lowest position, bed rails raised x2. Call light and belongings placed within reach. Will continue to monitor.
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
--- NOTE | 2020-01-27 19:43 | NUR ---
HAND-OFF: Report given to GULSHAN Hernandez.
[2020-01-27 20:00] VITALS: BP 124/70
[2020-01-27] MEDS: HydrOXYzine tab 25mg tab ORAL PRN (20:53)
[2020-01-27] MEDS: Hydromorphone 0.5mg/0.5ml inj IVP PRN (21:00)
--- NOTE | 2020-01-27 21:40 | NUR ---
NURSE NOTES: Patient complained of burning sensation at IV site when being flushed and wants IV to be removed. IV site assessed and noted to be slightly swollen but still cool to touch. Explained to patient that it is difficult to start an IV on him and to have the IV on middle finger still be in place until another line is started on him because his pain medications and atb is given through IV; patient insistent to have the IV removed.
--- NOTE | 2020-01-27 22:13 | Psych Consult Progress Note ---
Psychiatry Progress Note Psychiatry Progress Note Medications Current Medications Medications (Trade) Dose Ordered Sig/Pedro Route PRN Reason Start Time Stop Time Status Last Admin Dose Admin Acetaminophen (Tylenol) 650 mg Q6H PRN ORAL For Headache 01/25/20 03:30 02/24/20 03:29 01/27/20 20:53 Amikacin Protocol (Amikacin pharmacy to dose) 1 ea DAILY PRN MISC Per rx protocol 01/25/20 11:30 02/24/20 11:29 Amikacin Sulfate 1500 mg/Sodium Chloride 281 ml @ 281 mls/hr Q24H IV 01/25/20 13:00 02/01/20 12:59 01/27/20 13:26 Baclofen (Lioresal) 10 mg THREE TIMES A DAY ORAL 01/27/20 13:00 02/26/20 12:59 01/27/20 17:25 Diphenhydramine HCl (Benadryl) 25 mg Q8H PRN ORAL Itching 01/26/20 00:30 02/25/20 00:29 01/26/20 12:43 Enoxaparin Sodium (Lovenox) 40 mg DAILY SUBQ 01/25/20 09:00 04/24/20 08:59 01/27/20 09:28 Escitalopram Oxalate (Lexapro) 10 mg DAILY ORAL 01/26/20 09:00 02/25/20 08:59 01/27/20 09:28 Gabapentin (Neurontin) 900 mg TID ORAL 01/27/20 13:00 02/26/20 12:59 01/27/20 17:25 Hydromorphone HCl (Dilaudid) 0.5 mg Q4H PRN IVP For moderate/breakthrough Pain 01/25/20 07:45 02/01/20 03:29 01/27/20 21:00 Hydromorphone HCl (Dilaudid) 1 mg Q4H PRN IVP Severe Pain (Pain Scale 7-10) 01/25/20 08:30 02/01/20 08:29 01/27/20 17:29 Hydroxyzine HCl (Atarax) 25 mg Q6H PRN ORAL For Anxiety 01/27/20 18:15 02/26/20 18:14 01/27/20 20:53 Metronidazole (Flagyl) 500 mg Q8HR ORAL 01/25/20 06:00 02/01/20 05:59 01/27/20 20:53 Mirtazapine (Remeron) 7.5 mg BEDTIME ORAL 01/26/20 23:00 04/25/20 22:59 01/27/20 20:53 Ondansetron HCl (Zofran ODT) 4 mg Q6H PRN ORAL Nausea & Vomiting 01/27/20 12:30 02/26/20 12:29 01/27/20 13:27 Sodium Hypochlorite (Dakin's Quarter Strength) 1 applic DAILY TOPIC 01/27/20 09:00 02/26/20 08:59 01/27/20 09:00 Sodium Chloride 1,000 ml @ 100 mls/hr Q10H IV 01/25/20 06:00 02/24/20 05:59 01/27/20 15:00 Vancomycin HCl (Vanco rx to dose) 1 ea DAILY PRN MISC Per rx protocol 01/25/20 03:30 02/24/20 03:29 Vancomycin HCl 1.5 gm/Sodium Chloride 275 ml @ 137.5 mls/ hr Q8H IVPB 01/27/20 00:00 02/01/20 00:00 01/27/20 17:24 Allergies: Coded Allergies: CEPHALEXIN (Verified Allergy, Unknown, 06/28/17) FISH DERIVED (Unverified Allergy, Unknown, 08/29/19) MORPHINE (Verified Allergy, Unknown, 06/28/17) Objective Data Height (Feet): 6 Height (Inches): 2.00 Weight (Pounds): 280 Basia Negrete MD Jan 27, 2020 22:13
[2020-01-28 00:23] VITALS: BP 116/52
--- NOTE | 2020-01-28 00:34 | NUR ---
NURSE NOTES: Called to the ED for assistance to start a line on patient; No nurse is available to come up.
[2020-01-28] MEDS: Vancomycin 1.5 GM in NS 275 ML IVPB SCH ×4 (01:32→23:12)
[2020-01-28] MEDS: HYDROmorphone 1mg/ml Carpuject IVP PRN ×6 (01:39→22:45)
--- NOTE | 2020-01-28 02:51 | NUR ---
NURSE NOTES: Patient asleep and comfortable. Bilateral boots placed as requested by the patient. New IV line inserted on right wrist; patent and flushed. IV vanco running at this time, no ASE. Will continue to monitor.
[2020-01-28 04:00] VITALS: BP 109/61
[2020-01-28] MEDS: metroNIDAZOLE 500mg tab ORAL SCH ×3 (06:34→20:41)
--- NOTE | 2020-01-28 07:00 | NUR ---
NURSE NOTES:Handoff received from GULSHAN Tran. Patient received awake and alert and able to make needs known. Patient watching TV in bed, no acute signs of distress noted. Bed in the low and locked position with call light within reach. IV fluids running via right wrist 24 kyle NS @ 100ml/HR. Patient on isolation for Covid19, on room air. will continue to monitor patient.
--- NOTE | 2020-01-28 07:25 | NUR ---
HAND-OFF: Report given to Gabo GAFFNEY. Plan of care endorsed.
[2020-01-28 08:00] VITALS: BP 114/66
[2020-01-28] MEDS: Enoxaparin 40mg Inj SUBQ SCH (09:51)
[2020-01-28] MEDS: Dakin's 0.125% Soln (Quarter Strength) 16oz TOPIC SCH (10:08)
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
--- NOTE | 2020-01-28 10:44 | NUR ---
NURSE NOTES:Had trouble opening the Dilaudid. When I opened the packaging it pulled the stopper out of the end and the dilaudid ended up spilling on the computer. Greg Reynaga, RN witness. Also spoke to [place] nursing supervisor wrapping room to explain the issue as the same issue occurred yesterday.
[2020-01-28 12:00] VITALS: BP 104/57
[2020-01-28] MEDS: AMIKACIN IV SCH (13:23)
[2020-01-28] MEDS: NS IV SCH (13:23)
--- NOTE | 2020-01-28 13:50 | NUR ---
NURSE NOTES: Patient still has fever of 101 after Tylenol administered. cannot administer another does yet. Active cooling measures in place using Ice bags placed on patient neck, forehead and axilla to help reduce and manage fever.
[2020-01-28 16:00] VITALS: BP 97/57
[2020-01-28] MEDS: Bactrim-DS 1 tab ORAL SCH (17:23)
--- NOTE | 2020-01-28 19:34 | NUR ---
HAND-OFF: Report given to GULSHAN Wong.
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
--- NOTE | 2020-01-28 19:50 | NUR ---
NURSE NOTES: Received pt from GULSHAN Ayon. Pt awake, alert, and talkative. Bed in lowest position. Call light within reach. Will continue to monitor
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
[2020-01-28 20:00] VITALS: BP 112/64
[2020-01-28] MEDS: Hydromorphone 0.5mg/0.5ml inj IVP PRN (20:51)
[2020-01-28] MEDS: DiphenhydrAMINE 25mg Tab ORAL PRN (22:45)
[2020-01-29] MEDS: HYDROmorphone 1mg/ml Carpuject IVP PRN ×5 (03:09→21:24)
--- NOTE | 2020-01-29 04:00 | NUR ---
NURSE NOTES: pT consistently refuses turning. Pt aware of risks vs benefits. Will continue to monitor.
[2020-01-29] MEDS: metroNIDAZOLE 500mg tab ORAL SCH ×3 (05:40→21:23)
[2020-01-29] MEDS: Hydromorphone 0.5mg/0.5ml inj IVP PRN (06:53)
--- NOTE | 2020-01-29 07:44 | NUR ---
HAND-OFF: Report given to GULSHAN Jefferson.
[2020-01-29 08:00] VITALS: BP 132/76
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
[2020-01-29] MEDS: Bactrim-DS 1 tab ORAL SCH ×2 (09:12→17:36)
[2020-01-29] MEDS: Vancomycin 1.5 GM in NS 275 ML IVPB SCH ×2 (09:12→16:59)
[2020-01-29] MEDS: Dakin's 0.125% Soln (Quarter Strength) 16oz TOPIC SCH (09:16)
[2020-01-29] MEDS: Enoxaparin 40mg Inj SUBQ SCH (09:18)
--- NOTE | 2020-01-29 09:29 | NUR ---
CASE MANAGEMENT:REVIEW 01/29/20 SI: SEPSIS. COVID 19 DETECTED. UTI STAGE IV DECUB ULCER 99.9 73 20 112/64 99% ON RA IS: IV VANCOMYCIN Q8HRS IV AMIKACIN Q24 BACTRIM PO BID FLAGYL PO Q8HRS IVF@100/HR BACLOFEN PO TID REMERON PO QHS LEXAPRO PO QD LOVENOX SQ QD : TELEMETRY STATUS DCP: FROM [facility] PLAN: COVID 19 POSITIVE...[facility] NOTIFIED
[2020-01-29 10:40] LABS: BASOPHILS % (AUTO) 0.8 % (0.0-2.0); EOSINOPHILS % (AUTO) 3.3 % (0.0-3.0); HEMATOCRIT 26.9 % (42.0-52.0); HEMOGLOBIN 8.2 G/DL (14.2-18.0); LYMPHOCYTES % (AUTO) 29.8 % (20.0-45.0); MEAN CORPUSCULAR VOLUME 76 FL (80-99); MONOCYTES % (AUTO) 7.9 % (1.0-10.0); NEUTROPHILS % (AUTO) 58.3 % (45.0-75.0); PLATELET COUNT 390 K/UL (150-450); RED BLOOD COUNT 3.56 M/UL (4.70-6.10); RED CELL DISTRIBUTION WIDTH 17.3 % (11.6-14.8); WHITE BLOOD COUNT 5.7 K/UL (4.8-10.8)
[2020-01-29 10:52] LABS: ANION GAP 10 mmol/L (5-15); BLOOD UREA NITROGEN 5 mg/dL (7-18); CALCIUM 8.1 MG/DL (8.5-10.1); CARBON DIOXIDE 25 MMOL/L (21-32); CHLORIDE 102 MMOL/L (98-107); CREATININE 0.7 MG/DL (0.55-1.30); POTASSIUM 3.6 MMOL/L (3.5-5.1); SODIUM 136 MMOL/L (136-145)
--- NOTE | 2020-01-29 11:11 | NUR ---
*-* INSURANCE *-* UPDATED AVAILABLE CLINICALS HAVE BEEN FAXED TO: TASHA HINTON NCM:SUNDEEP ext [phone] Vice President Quality Assurance Nazario Ayala [phone]
[2020-01-29 12:00] VITALS: BP 118/56
[2020-01-29] MEDS ORDERED: Heparin1,000 units/500ml Premix(Conc:2 units/ml) IV PRN (12:30)
[2020-01-29] MEDS ORDERED: Lidocaine 1% Plain 30 ml INJ PRN (12:32)
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
[2020-01-29] MEDS: NS IV SCH (13:30)
[2020-01-29] MEDS: AMIKACIN IV SCH (13:30)
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
[2020-01-29 16:00] VITALS: BP 101/50
--- NOTE | 2020-01-29 17:05 | Pre-Procedure Note/Attestation ---
Pre-Procedure Note/Attestation Complete Prior to Procedure Planned Procedure: not applicable Procedure Narrative: PICC Indications for Procedure Pre-Operative Diagnosis: needs longwall shearer operator IV access Attestation I attest that I discussed the nature of the procedure; its benefits; risks and complications; and alternatives (and the risks and benefits of such alternatives ), prior to the procedure, with the patient (or the patient's legal sales representative gas service). I attest that, if there was a reasonable possibility of needing a blood transfusion, the patient (or the patient's legal sales representative gas service) was given the [facility] standardized written summary, pursuant to the David Bree Blood Safety Act ([place] Health and Safety Code # 1645, as amended). I attest that I re-evaluated the patient just prior to the surgery and that there has been no change in the patient's H&P, except as documented below: Dom Cummings MD Jan 29, 2020 17:05
--- NOTE | 2020-01-29 17:06 | Brief Operative Note ---
Immediate Post Operative Note Operative Note Pre-op Diagnosis: needs adjunct faculty for medical terminology IV access Procedure: PICC Post-op Diagnosis: same as pre-op Surgeon: Cathy CUMMINGS Anesthesia: local Specimen: none Complications: none Fluids: none Implant(s) used?: No Dom Cummings MD Jan 29, 2020 17:06
--- NOTE | 2020-01-29 17:11 | Diagnostic Imaging Report ---
Indications: Needs long-term IV access Technique: Procedure performed at bedside. Procedural timeout performed. Ultrasound confirms patent compressible right basilic vein. Total sterile technique, including sterile probe cover and sterile gel, sterile gloves, hand hygiene, hat, mask,, sterile gown, large sterile drape, and preparation with 2% chlorhexidine utilized. Local anesthesia with 1% lidocaine. Under real-time ultrasound guidance, puncture basilic vein using 21-gauge needle, passage 0.018 guidewire, exchange for 4 Dutch peel-away sheath. 4 Dutch Bard dual-lumen power PICC cut to 43 cm. It was inserted through the peel-away sheath. Peel-away sheath and guidewire removed. Catheter fixed to the skin. Both catheter ports aspirated and flushed. Patient tolerated procedure well, without immediate complication. Followup chest x-ray obtained, documents catheter tip position at the mid superior vena cava Impression: Successful bedside placement of right arm PICC under sonographic guidance, as described above.
[2020-01-29 20:00] VITALS: BP 104/98
[2020-01-29] MEDS: Dyna-Hex 2% Top Sol 2oz TOPIC SCH (21:23)
[2020-01-30] VITALS: BP 119/51
--- NOTE | 2020-01-30 00:36 | NUR ---
NURSE NOTES: Called and left a message with Dr. Alejandro regarding pts request for cough meds. She ordered robitussin q4 prn. Will input order and will continue to monitor
[2020-01-30] MEDS: Guaifenesin/DM 10ml syrup ORAL PRN ×2 (01:29→05:30)
[2020-01-30] MEDS: HYDROmorphone 1mg/ml Carpuject IVP PRN ×4 (01:29→18:01)
--- NOTE | 2020-01-30 01:29 | Progress Note ---
DATE: 01/29/2020 HISTORY OF PRESENT ILLNESS: The patient is irritable, poor insight, presents with depressed mood, anhedonia. He is now COVID-19 positive, uncooperative with the staff. MENTAL STATUS EXAM: General: Oriented to times self, place, situation. Mood is irritable. Affect is constricted. Congruent mood. Thought process is concrete. Thought content, no suicidal or homicidal ideation. Cognition is impaired. Insight and judgment, impaired. ASSESSMENT: 1. Major depressive disorder. 2. Antisocial personality. PLAN: Continue current medications. Basia Negrete M.D. DR: Nohemy JOB#: [id number] CC:
[2020-01-30 04:00] VITALS: BP 122/51
[2020-01-30] MEDS: metroNIDAZOLE 500mg tab ORAL SCH ×3 (05:31→21:01)
[2020-01-30 07:26] LABS: HEMATOCRIT 23.2 % (42.0-52.0); HEMOGLOBIN 7.2 G/DL (14.2-18.0); MEAN CORPUSCULAR VOLUME 75 FL (80-99); PLATELET COUNT 293 K/UL (150-450); RED BLOOD COUNT 3.11 M/UL (4.70-6.10); RED CELL DISTRIBUTION WIDTH 17.3 % (11.6-14.8); WHITE BLOOD COUNT 4.7 K/UL (4.8-10.8)
[2020-01-30 07:59] LABS: ANION GAP 10 mmol/L (5-15); BLOOD UREA NITROGEN 4 mg/dL (7-18); CALCIUM 6.4 MG/DL (8.5-10.1); CARBON DIOXIDE 23 MMOL/L (21-32); CHLORIDE 112 MMOL/L (98-107); CREATININE 0.6 MG/DL (0.55-1.30); POTASSIUM 2.9 MMOL/L (3.5-5.1); SODIUM 145 MMOL/L (136-145)
[2020-01-30 08:00] VITALS: BP 108/56
--- NOTE | 2020-01-30 08:00 | NUR ---
NURSE NOTES: Received patient from Darian Wong. PAtient is awake and alert. Lying comfortably in bed. Dnies pain or discomfort at this time. Right PICC double lumen CDI. [place] draining yellow urine. Left colostomy noyed with scanty soft brown stool. Fall/Aspiration precautions in place. Call sanders within patients reached. Will monitor.
[2020-01-30] MEDS: Enoxaparin 40mg Inj SUBQ SCH (09:00)
[2020-01-30] MEDS: Dakin's 0.125% Soln (Quarter Strength) 16oz TOPIC SCH (09:00)
[2020-01-30] MEDS: Bactrim-DS 1 tab ORAL SCH ×2 (09:32→18:00)
[2020-01-30] MEDS: Vancomycin 1.5 GM in NS 275 ML IVPB SCH ×4 (09:32→18:00)
[2020-01-30] MEDS: Hydromorphone 0.5mg/0.5ml inj IVP PRN ×2 (09:34→21:00)
--- NOTE | 2020-01-30 09:50 | NUR ---
CASE MANAGEMENT:REVIEW 01/30/20 SI: SEPSIS. COVID 19 DETECTED. UTI STAGE IV DECUB ULCER 102.6 82 18 108/56 100% ON RA H/H-7.2/23.2 K-2.9 CA-6.4 IS: IV KCL Q1HRS X2 BAGS IV VANCOMYCIN Q8HRS IV AMIKACIN Q24 BACTRIM PO BID FLAGYL PO Q8HRS IVF@100/HR BACLOFEN PO TID REMERON PO QHS LEXAPRO PO QD LOVENOX SQ QD : TELEMETRY STATUS DCP: FROM [facility] PLAN: COVID 19 POSITIVE...[facility] NOTIFIED
--- NOTE | 2020-01-30 11:26 | NUR ---
RD ASSESSMENT & RECOMMENDATIONS SEE CARE ACTIVITY FOR COMPLETE ASSESSMENT DAILY ESTIMATED NEEDS: Needs based on paraplegia, wound, sepsis, obese 95.6kg adj 20-25 kcals/kg 1924-0853 total kcals 1.25-2 g protein/kg 120-191 g total protein 25-30 mL/kg 2215-0860 total fluid mLs NUTRITION DIAGNOSIS: 1) Increase Kcal and protein needs r/t wound healing as evidenced by pt w/ multiple full thickness wounds, refer to WC eval. 2) Altered GI function r/t colostomy as evidenced by h/o paraplegia with colostomy. CURRENT DIET: Regular PO DIET RECOMMENDATIONS: Cardiac diet (no corn, beans, fried foods, seafood per SNF record) ADDITIONAL RECOMMENDATIONS: 1) Per SNF: 6'2" and 271# 2) Wound care: Add MVI w/ min x 1, Vit C 500mg BID Jorge 1pkt BID 3) High protein snacks in b/w meals 4) Maintain calibrated bed scale wts 5) Monitor lytes daily (K low 2.9), replete prn.
[2020-01-30 11:48] VITALS: BP 126/70
[2020-01-30] MEDS: NS IV SCH (13:09)
[2020-01-30] MEDS: AMIKACIN IV SCH (13:09)
--- NOTE | 2020-01-30 13:35 | NUR ---
*-* INSURANCE *-* UPDATED AVAILABLE CLINICALS HAVE BEEN FAXED TO: TASHA HINTON NCM:SUNDEEP ext [phone] Procurement Agent Nazario Ayala [phone]
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
[2020-01-30 16:00] VITALS: BP 112/68
--- NOTE | 2020-01-30 16:37 | NUR ---
NURSE NOTES: Dr. Negrete made aware that patient stated he needs a sitter because he wanted to hurt himself. Patient doesn't specify how he is going to hurt himself. Per MD patient is not imminent danger to himself and doesn't need a sitter. Will monitr patient closely.
[2020-01-30 16:53] LABS: ANION GAP 8 mmol/L (5-15); BLOOD UREA NITROGEN 4 mg/dL (7-18); CALCIUM 7.5 MG/DL (8.5-10.1); CARBON DIOXIDE 26 MMOL/L (21-32); CHLORIDE 103 MMOL/L (98-107); CREATININE 0.7 MG/DL (0.55-1.30); POTASSIUM 3.5 MMOL/L (3.5-5.1); SODIUM 137 MMOL/L (136-145)
--- NOTE | 2020-01-30 19:29 | NUR ---
HAND-OFF: Report given to Erica Farmer,Plan of care endorsed. No further suiceide ideation Rn aware to continue to monitor.
--- NOTE | 2020-01-30 19:40 | NUR ---
NURSE NOTES: Received report from Nu Mead RN. Pt in stable condition; will continue monitoring and plan of care.
[2020-01-30 20:00] VITALS: BP 100/42
[2020-01-30] MEDS: Dyna-Hex 2% Top Sol 2oz TOPIC SCH (20:54)
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
[2020-01-31] VITALS: BP 120/69
[2020-01-31] MEDS: Vancomycin 1.5gm/NS Premix 275 ML IVPB SCH ×3 (00:12→16:18)
[2020-01-31] MEDS: HYDROmorphone 1mg/ml Carpuject IVP PRN ×6 (00:13→22:16)
--- NOTE | 2020-01-31 01:30 | Progress Note ---
DATE: 01/24/2020 HISTORY OF PRESENT ILLNESS: The patient was requesting for a sitter today. He told his nurse that he needs a sitter as he was suicidal. The patient was very irritable and manipulative. MENTAL STATUS EXAMINATION: Alert and oriented to times, self, place, situation, and date. Mood is irritable. Affect is flat. Thought process is concrete. Thought content, no suicidal or homicidal ideation. Cognition is intact. Insight and judgment is fair. ASSESSMENT: 1. Antisocial personality. 2. Depressive disorder. PLAN: 1. Continue the Lexapro. 2. Remeron. 3. Provide the patient with reality orientation and discussed with the nurse. Basia Negrete M.D. DR: Nohemy JOB#: [id number] CC:
[2020-01-31 04:00] VITALS: BP 109/57
[2020-01-31] MEDS: metroNIDAZOLE 500mg tab ORAL SCH ×3 (05:25→22:15)
--- NOTE | 2020-01-31 06:40 | NUR ---
NURSE NOTES: Received report from Nu Mead RN. Pt in stable condition; will continue monitoring and plan of care.
--- NOTE | 2020-01-31 07:10 | NUR ---
HAND-OFF: Report given to Gabo Garcia RN. Pt in stable condition.
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
--- NOTE | 2020-01-31 08:31 | NUR ---
CASE MANAGEMENT:REVIEW 01/31/20 SI: SEPSIS. COVID 19 DETECTED. UTI STAGE IV DECUB ULCER 102.4 72 22 109/57 100% ON RA IS: IV VANCOMYCIN Q8HRS IV AMIKACIN Q24 BACTRIM PO BID FLAGYL PO Q8HRS IVF@100/HR BACLOFEN PO TID REMERON PO QHS LEXAPRO PO QD LOVENOX SQ QD : TELEMETRY STATUS DCP: FROM [facility] PLAN: REPEAT BLOOD CULTURE
[2020-01-31] MEDS: Dakin's 0.125% Soln (Quarter Strength) 16oz TOPIC SCH (09:45)
[2020-01-31] MEDS: Bactrim-DS 1 tab ORAL SCH ×2 (09:45→17:04)
[2020-01-31] MEDS: Enoxaparin 40mg Inj SUBQ SCH (09:47)
[2020-01-31 12:00] VITALS: BP 112/57
--- NOTE | 2020-01-31 12:21 | NUR ---
NURSE NOTES:Patient complaining of sharp chest pain. Notified MD awaiting call back.
[2020-01-31] MEDS ORDERED: LORazepam 1mg tab ORAL PRN (12:30)
--- NOTE | 2020-01-31 13:05 | NUR ---
NURSE NOTES:EKG tracing done and placed in patient chart.
[2020-01-31] MEDS: Hydromorphone 0.5mg/0.5ml inj IVP PRN (13:13)
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
[2020-01-31] MEDS: AMIKACIN IV SCH (13:52)
[2020-01-31] MEDS: NS IV SCH (13:52)
[2020-01-31 14:28] LABS: HEMATOCRIT 25.1 % (42.0-52.0); HEMOGLOBIN 7.7 G/DL (14.2-18.0); MEAN CORPUSCULAR VOLUME 75 FL (80-99); PLATELET COUNT 340 K/UL (150-450); RED BLOOD COUNT 3.36 M/UL (4.70-6.10); WHITE BLOOD COUNT 6.1 K/UL (4.8-10.8)
--- NOTE | 2020-01-31 14:33 | NUR ---
*-* INSURANCE *-* UPDATED AVAILABLE CLINICALS HAVE BEEN FAXED TO: TASHA HINTON NCM:SUNDEEP ext [phone] Clinical Research Analyst Nazario Ayala [phone]
[2020-01-31 14:42] LABS: ALANINE AMINOTRANSFERASE 17 U/L (12-78); ALBUMIN 2.1 G/DL (3.4-5.0); ALBUMIN/GLOBULIN RATIO 0.4 (1.0-2.7); ALKALINE PHOSPHATASE 62 U/L (46-116); ANION GAP 8 mmol/L (5-15); ASPARTATE AMINO TRANSFERASE 24 U/L (15-37); BILIRUBIN,TOTAL < 0.1 MG/DL (0.2-1.0); BLOOD UREA NITROGEN 4 mg/dL (7-18); CALCIUM 7.7 MG/DL (8.5-10.1); CARBON DIOXIDE 28 MMOL/L (21-32); CHLORIDE 103 MMOL/L (98-107); CREATININE 0.7 MG/DL (0.55-1.30); POTASSIUM 3.5 MMOL/L (3.5-5.1); SODIUM 138 MMOL/L (136-145)
[2020-01-31 16:00] VITALS: BP 115/75
--- NOTE | 2020-01-31 16:05 | NUR ---
DISCHARGE PLANNING PATIENT IS FROM [facility] AND IS COVID 19 POSITIVE LAST TEMP WAS 01/30/20 T~99.5 NOT READY FOR DISCHARGE D/T WBC+19.8 AND FEVER YESTERDAY
--- NOTE | 2020-01-31 16:32 | NUR ---
NURSE NOTES:called and left a message for Dr Jensen group as patient is requesting one time order for IV benadryl. Patient also wants something for his diarrhea. notified awaiting call back.
[2020-01-31] MEDS: DiphenhydrAMINE 25mg Tab ORAL PRN (17:04)
--- NOTE | 2020-01-31 19:42 | NUR ---
HAND-OFF: Report given to GULSHAN Combs.
[2020-01-31 20:00] VITALS: BP 122/70
[2020-01-31] MEDS: Dyna-Hex 2% Top Sol 2oz TOPIC SCH (22:15)
[2020-01-31] MEDS: HydrOXYzine tab 25mg tab ORAL PRN (22:31)
--- NOTE | 2020-01-31 23:44 | Progress Note ---
DATE: 01/31/2020 SUBJECTIVE: Patient that he has anxiety. He appeared very calm, in no acute distress. Patient was prescribed Ativan by primary care physician. Patient is abusive towards the staff. MENTAL STATUS EXAMINATION: Patient is alert, oriented times self, place, situation. Mood is dysphoric. Affect is constricted, congruent with mood. Thought process is concrete. Thought content, no suicidal or homicidal ideation. Cognition is intact. Insight and judgment is fair. ASSESSMENT: Anxiety disorder. PLAN: Patient was seen in the presence of his nurse, . Patient could be discharged when medically cleared. Basia Negrete M.D. DR: ISAIAS JOB#: [id number] CC:
[2020-02-01] VITALS: BP 130/77
[2020-02-01] MEDS: Vancomycin 1.5gm/NS Premix 275 ML IVPB SCH ×3 (00:34→16:28)
[2020-02-01] MEDS: HYDROmorphone 1mg/ml Carpuject IVP PRN ×6 (01:46→22:43)
[2020-02-01 04:00] VITALS: BP 140/85
[2020-02-01] MEDS: metroNIDAZOLE 500mg tab ORAL SCH ×4 (06:00→22:42)
--- NOTE | 2020-02-01 07:30 | NUR ---
HAND-OFF: Report given to Nieves GAFFNEY.
[2020-02-01 07:46] VITALS: BP 122/59
[2020-02-01 07:53] LABS: HEMATOCRIT 25.4 % (42.0-52.0); HEMOGLOBIN 7.8 G/DL (14.2-18.0); MEAN CORPUSCULAR VOLUME 74 FL (80-99); PLATELET COUNT 303 K/UL (150-450); RED BLOOD COUNT 3.43 M/UL (4.70-6.10); RED CELL DISTRIBUTION WIDTH 17.5 % (11.6-14.8); WHITE BLOOD COUNT 4.9 K/UL (4.8-10.8)
[2020-02-01] MEDS: Bactrim-DS 1 tab ORAL SCH ×2 (07:56→18:06)
[2020-02-01] MEDS: Enoxaparin 40mg Inj SUBQ SCH (07:58)
[2020-02-01 08:08] LABS: ALANINE AMINOTRANSFERASE 10 U/L (12-78); ALBUMIN/GLOBULIN RATIO 0.4 (1.0-2.7); ALKALINE PHOSPHATASE 51 U/L (46-116); ANION GAP 6 mmol/L (5-15); ASPARTATE AMINO TRANSFERASE 21 U/L (15-37); BILIRUBIN,TOTAL 0.1 MG/DL (0.2-1.0); BLOOD UREA NITROGEN 3 mg/dL (7-18); CALCIUM 7.6 MG/DL (8.5-10.1); CARBON DIOXIDE 28 MMOL/L (21-32); CHLORIDE 102 MMOL/L (98-107); CREATININE 0.8 MG/DL (0.55-1.30); POTASSIUM 3.1 MMOL/L (3.5-5.1); SODIUM 136 MMOL/L (136-145)
--- NOTE | 2020-02-01 09:00 | NUR ---
NURSE NOTES: NURSE NOTES: Patient AOx4 drowzy with 102.3F temp. Tylenol given at . Cold bath given. Ice packes and cooling measures applied. Vancomycin and other scheduled medications given. RR even and unlabored on 4L NC. Patient complaining of pain and numbness to LT arm. Arm is elevated and has good capillary refill. Temp reassessed and found to be 99.3F. Dr. Sam at bedside. Orders received. PICC line dressing changed. Call light within reach, bed low and locked. Patient requesting wound care after pain meds. Patient repositioned. Mackay drained. 400mL drained from colostomy. Will continue to monitor.
--- NOTE | 2020-02-01 09:01 | NUR ---
CASE MANAGEMENT:REVIEW 02/01/20 SI: SEPSIS. COVID 19 DETECTED. UTI STAGE IV DECUB ULCER 102.4 72 22 109/57 100% ON RA H/H-7.8/25.4 K-3.1 CA-7.6 IS: IV VANCOMYCIN Q8HRS IV AMIKACIN Q24 BACTRIM PO BID FLAGYL PO Q8HRS IVF@100/HR BACLOFEN PO TID REMERON PO QHS LEXAPRO PO QD LOVENOX SQ QD : TELEMETRY STATUS DCP: FROM [facility] PLAN: BLOOD CULTURE PENDING URINE CULTURE PENDING REPEATED COVID 19 ~ DETECTED CONTINUE ISOLATION
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
--- NOTE | 2020-02-01 11:35 | NUR ---
NURSE NOTES: Reported blood cx reports to Dr. Parker' answering service. Awaiting call back.
[2020-02-01 12:00] VITALS: BP 146/84
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
--- NOTE | 2020-02-01 12:30 | NUR ---
NURSE NOTES: Dressing changed. Patient placed on Low air loss mattress per wound care nurse's recommendation.
[2020-02-01] MEDS: NS IV SCH (14:05)
[2020-02-01] MEDS: Dakin's 0.125% Soln (Quarter Strength) 16oz TOPIC SCH (14:05)
[2020-02-01] MEDS: AMIKACIN IV SCH (14:05)
--- NOTE | 2020-02-01 14:57 | NUR ---
*-* INSURANCE *-* UPDATED AVAILABLE CLINICALS HAVE BEEN FAXED TO: TASHA HINTON NCM:SUNDEEP ext [phone] Electrician'S Assistant Nazario Ayala [phone]
[2020-02-01 16:00] VITALS: BP 124/66
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
--- NOTE | 2020-02-01 16:34 | Diagnostic Imaging Report ---
Indication: Chest pain Technique: One view of the chest Comparison: Post PICC radiograph dated 01/29/2020 Findings: Right lower lung infiltrate appears slightly increased from the previous study. There is some atelectasis at the left lung base. Right arm PICC remains. Findings are unchanged Impression: Slightly increased right basilar infiltrate New left basilar atelectasis
[2020-02-01 20:00] VITALS: BP 104/73
--- NOTE | 2020-02-01 20:23 | NUR ---
HAND-OFF: Report given to Leonela GAFFNEY. Patient stable. Endorsed plan of care.
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
[2020-02-01] MEDS: Dyna-Hex 2% Top Sol 2oz TOPIC SCH (22:42)
[2020-02-02] VITALS: BP 105/57
[2020-02-02] MEDS: Vancomycin 1.5gm/NS Premix 275 ML IVPB SCH ×4 (00:09→23:38)
[2020-02-02] MEDS: Acetaminophen 500mg (ES) tab ORAL PRN ×2 (00:21→15:25)
--- NOTE | 2020-02-02 01:44 | Progress Note ---
DATE: 02/01/2020 SUBJECTIVE: The patient is complaining of anxiety, appears very calm and he is currently on antidepressant, compliant. MENTAL STATUS EXAMINATION: Alert and oriented to time, self, place, and situation. Mood is anxious. Affect is constricted. Congruent mood. Thought process is concrete. Thought content, no suicidal or homicidal ideations. Cognition is intact. Insight and judgment, limited. ASSESSMENT: Major depressive disorder, currently positive. PLAN: 1. Continue the Lexapro 10 mg in the morning. 2. Continue to follow and readjust the medications. Basia Negrete M.D. DR: Nohemy JOB#: [id number] CC:
[2020-02-02] MEDS: HYDROmorphone 1mg/ml Carpuject IVP PRN ×5 (02:50→21:42)
[2020-02-02 04:00] VITALS: BP 124/46
[2020-02-02] MEDS: metroNIDAZOLE 500mg tab ORAL SCH ×3 (05:59→21:01)
--- NOTE | 2020-02-02 07:34 | NUR ---
HAND-OFF: Report given to GULSHAN Mata. Patient shows no signs of distress. Endorsed plan of care.
[2020-02-02 08:00] VITALS: BP 126/58
[2020-02-02] MEDS: DiphenhydrAMINE 25mg Tab ORAL PRN (08:19)
[2020-02-02] MEDS: Enoxaparin 40mg Inj SUBQ SCH (08:21)
[2020-02-02] MEDS: Bactrim-DS 1 tab ORAL SCH ×2 (08:46→17:39)
--- NOTE | 2020-02-02 08:49 | NUR ---
CASE MANAGEMENT:REVIEW 02/01/20 SI: SEPSIS. COVID 19 PNA. BACTEREMIA. UTI STAGE IV DECUB ULCER 100.9 71 20 124/46 100% ON 4L/NC H/H-7.8/25.4 K-3.1 MAG-1.2 IS: IV VANCOMYCIN Q8HRS IV AMIKACIN Q24 BACTRIM PO BID FLAGYL PO Q8HRS IVF@100/HR BACLOFEN PO TID REMERON PO QHS LEXAPRO PO QD LOVENOX SQ QD : TELEMETRY STATUS DCP: FROM [facility] PLAN: BLOOD CULTURE PRELIM ~ STAPH AUREUS URINE CULTURE (+) E COLI CONTINUE ISOLATION Addendum: 02/05/20 at 0934 by SUSHILA BARCENAS LVN LVN ABOVE REVIEW IS FOR
[2020-02-02] MEDS: Dakin's 0.125% Soln (Quarter Strength) 16oz TOPIC SCH (08:54)
--- NOTE | 2020-02-02 09:49 | NUR ---
DISCHARGE PLANNING PATIENT IS FROM [facility] AND IS COVID 19 POSITIVE LAST TEMP ~ 100.9 ON 02/02/20 NOT READY FOR DISCHARGE D/T FEVER TODAY ....REASSESS IN 72 HRS
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
--- NOTE | 2020-02-02 10:59 | NUR ---
RADIOLOGY: PATIENT REFUSED KUB X-RAY 0900HRS. NF
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
[2020-02-02 12:00] VITALS: BP 130/65
[2020-02-02] MEDS: AMIKACIN IV SCH (13:04)
[2020-02-02] MEDS: NS IV SCH (13:04)
--- NOTE | 2020-02-02 13:54 | NUR ---
*-* INSURANCE *-* UPDATED AVAILABLE CLINICALS HAVE BEEN FAXED TO: TASHA HINTON NCM:SUNDEEP ext [phone] Obgyn Hospitalist Physician Nazario Ayala [phone]
[2020-02-02 16:00] VITALS: BP 133/68
--- NOTE | 2020-02-02 19:54 | NUR ---
NURSE NOTES: RECEIVED REPORT FROM GULSHAN RICHARDS. PATIENT AWAKE IN BED, AAOX4, VERBALLY RESPONSIVE AND ABLE TO MAKE NEEDS KNOWN. NO COMPLAINTS OF PAIN OR DISCOMFORT AT THIS TIME. BREATHING IS EVEN AND UNLABORED ON ROOM AIR, NO S/SX OF DISTRESS NOTED. COTO CATHETER DRAINING WELL TO GRAVITY. SANTA PICC LINE SITE ASYMPTOMATIC, PATENT AND INTACT WITH NS RUNNING AT 100 ML/HR. ON CONTACT AND DROPLET ISOLATION. FALL PRECAUTIONS IMPLEMENTED. BED LOCKED AND IN LOWEST POSITION WITH SIDERAILS UP X 2. CALL LIGHT WITHIN REACH. WILL CONTINUE TO MONITOR FOR ANY CHANGES.
[2020-02-02 20:00] VITALS: BP 112/60
[2020-02-02] MEDS: Dyna-Hex 2% Top Sol 2oz TOPIC SCH (20:27)
--- NOTE | 2020-02-02 23:40 | Psych Consult Progress Note ---
Psychiatry Progress Note Psychiatry Progress Note Medications Current Medications Medications (Trade) Dose Ordered Sig/Pedro Route PRN Reason Start Time Stop Time Status Last Admin Dose Admin Acetaminophen (Tylenol) 1,000 mg Q8H PRN ORAL Temp >100.5 02/01/20 08:30 03/02/20 08:29 02/02/20 15:25 Amikacin Protocol (Amikacin pharmacy to dose) 1 ea DAILY PRN MISC Per rx protocol 01/25/20 11:30 02/24/20 11:29 Amikacin Sulfate 1500 mg/Sodium Chloride 281 ml @ 281 mls/hr Q24H IV 01/31/20 13:00 02/07/20 12:59 02/02/20 13:04 Baclofen (Lioresal) 10 mg THREE TIMES A DAY ORAL 01/27/20 13:00 02/26/20 12:59 02/02/20 17:39 Chlorhexidine Gluconate (Phoebe-Hex 2%) 1 applic DAILY@2000 TOPIC 01/29/20 20:00 04/28/20 19:59 02/02/20 20:27 Diphenhydramine HCl (Benadryl) 25 mg Q8H PRN ORAL Itching 01/26/20 00:30 02/25/20 00:29 02/02/20 08:19 Enoxaparin Sodium (Lovenox) 40 mg DAILY SUBQ 01/25/20 09:00 04/24/20 08:59 02/02/20 08:21 Escitalopram Oxalate (Lexapro) 10 mg DAILY ORAL 01/26/20 09:00 02/25/20 08:59 02/02/20 08:18 Gabapentin (Neurontin) 900 mg TID ORAL 01/29/20 13:00 02/26/20 12:59 02/02/20 17:39 Guaifenesin/ Dextromethorphan (Robitussin DM Syrup) 10 ml Q4H PRN ORAL For Cough 01/30/20 00:45 04/29/20 00:44 01/30/20 05:30 Hydromorphone HCl (Dilaudid) 1 mg Q4H PRN IVP Severe Pain (Pain Scale 7-10) 02/01/20 10:15 02/08/20 10:14 02/02/20 21:42 Hydroxyzine HCl (Atarax) 25 mg Q6H PRN ORAL For Anxiety 01/27/20 18:15 02/26/20 18:14 01/31/20 22:31 Loperamide HCl (Imodium) 2 mg Q8H PRN ORAL Diarrhea 01/31/20 16:45 03/01/20 16:44 01/31/20 17:04 Metronidazole (Flagyl) 500 mg Q8HR ORAL 01/31/20 06:00 02/07/20 05:59 02/02/20 21:01 Mirtazapine (Remeron) 7.5 mg BEDTIME ORAL 01/26/20 23:00 04/25/20 22:59 02/02/20 21:01 Nitroglycerin (Ntg) 0.4 mg Q5M PRN SL Prn Chest Pain 01/31/20 12:30 03/01/20 12:29 Ondansetron HCl (Zofran ODT) 4 mg Q6H PRN ORAL Nausea & Vomiting 01/27/20 12:30 02/26/20 12:29 02/02/20 02:50 Sodium Hypochlorite (Dakin's Quarter Strength) 1 applic DAILY TOPIC 01/27/20 09:00 02/26/20 08:59 02/02/20 08:54 Sodium Chloride 1,000 ml @ 100 mls/hr Q10H IV 01/25/20 06:00 02/24/20 05:59 02/02/20 23:37 Trimethoprim/ Sulfamethoxazole (Bactrim-DS) 1 tab TWICE A DAY ORAL 01/28/20 18:00 02/04/20 17:59 02/02/20 17:39 Vancomycin HCl (Vanco rx to dose) 1 ea DAILY PRN MISC Per rx protocol 01/25/20 03:30 02/24/20 03:29 Vancomycin/Sodium Chloride 275 ml @ 137.5 mls/ hr Q8H IVPB 01/31/20 00:00 02/05/20 00:00 02/02/20 23:38 Neurological/Psychiatric: Reports: anxiety, depressed, emotional problems Allergies: Coded Allergies: CEPHALEXIN (Verified Allergy, Unknown, 06/28/17) FISH DERIVED (Unverified Allergy, Unknown, 08/29/19) MORPHINE (Verified Allergy, Unknown, 06/28/17) Objective Data Height (Feet): 6 Height (Inches): 2.00 Weight (Pounds): 280 Additional Comments: Oriented to times self, place, situation. Mood is irritable. Affect is constricted. Congruent mood. Thought process is Oriented to times self, place, situation. Mood is irritable. Affect is constricted. Congruent mood. Thought process is concrete. Thought content, no suicidal or homicidal ideation. Cognition is impaired. Insight and judgment, impaired. ASSESSMENT: 1. Major depressive disorder. 2. Antisocial personality. PLAN: Continue current medications. concrete. Thought content, no suicidal or homicidal ideation. Cognition is impaired. Insight and judgment, impaired. ASSESSMENT: 1. Major depressive disorder. 2. Antisocial personality. PLAN: Continue current medications. Basia Negrete MD February 02, 2020 23:40
[2020-02-03] VITALS: BP 116/63
--- NOTE | 2020-02-03 02:00 | NUR ---
NURSE NOTES: PATIENT REFUSED WOUND CARE X 3. EXPLAINED TO PATIENT THE IMPORTANCE OF CHANGING DRESSING, BUT PATIENT STILL REFUSED, STATING HE WANTS TO SLEEP BECAUSE HE WAS "UP ALL DAY".
[2020-02-03] MEDS: HYDROmorphone 1mg/ml Carpuject IVP PRN ×6 (02:01→22:37)
[2020-02-03 04:00] VITALS: BP 121/54
[2020-02-03] MEDS: Acetaminophen 500mg (ES) tab ORAL PRN ×2 (04:11→20:35)
[2020-02-03] MEDS: Guaifenesin/DM 10ml syrup ORAL PRN (04:47)
--- NOTE | 2020-02-03 05:00 | NUR ---
NURSE NOTES: PATIENT HAS ORDER FOR AM LABS. ATTEMPTED TO DRAW BLOOD FROM SANTA PICC LINE, HOWEVER UNABLE TO DO SO BECAUSE PICC LINE DIFFICULT TO FLUSH. ATTEMPTED TO DRAW BLOOD X 2 PERIPHERALLY, BUT UNABLE TO DO SO BECAUSE PATIENT IS A HARD STICK. CALLED DOWN TO LAB TO INFORM THEM OF UNCOLLECTED BLOOD.
[2020-02-03] MEDS: metroNIDAZOLE 500mg tab ORAL SCH ×3 (05:57→13:58)
--- NOTE | 2020-02-03 07:41 | NUR ---
HAND-OFF: Report given to GULSHAN MAHAN. PLAN OF CARE ENDORSED. INFORMED NURSE AM LABS NOT DONE DUE TO PICC LINE NOT FLUSHING PROPERLY.
[2020-02-03 08:00] VITALS: BP 128/72
[2020-02-03] MEDS: Vancomycin 1.5gm/NS Premix 275 ML IVPB SCH ×2 (08:10→16:00)
[2020-02-03] MEDS: Bactrim-DS 1 tab ORAL SCH ×2 (08:10→18:37)
[2020-02-03] MEDS: Enoxaparin 40mg Inj SUBQ SCH (08:11)
[2020-02-03] MEDS: Nitroglycerin Subl 0.4mg tab SL PRN ×2 (08:12→08:33)
[2020-02-03] MEDS: Dakin's 0.125% Soln (Quarter Strength) 16oz TOPIC SCH ×2 (08:38→09:00)
--- NOTE | 2020-02-03 08:39 | NUR ---
NURSE NOTES: Received report from GULSHAN Fischer. Pt A/O x4, complains of 8/10 CP, nitro administered X2. No s/sx of acute distress. VS WNL. Pt breathing and unlabored in RA/2L NC. Pt wanted RN to turn off mattress, explained to pt the benefits of it being on. Pt refused to eat breakfast at the moment. Bed on lowest position, call light within reach. Will continue plan of care.
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
[2020-02-03 12:00] VITALS: BP 144/84
[2020-02-03] MEDS: NS IV SCH (13:50)
[2020-02-03] MEDS: AMIKACIN IV SCH (13:50)
--- NOTE | 2020-02-03 14:18 | NUR ---
NURSE NOTES: Pt refused all PO medications due at 1300 and 1400.
[2020-02-03 16:00] VITALS: BP 145/88
--- NOTE | 2020-02-03 19:17 | NUR ---
HAND-OFF: Report given to GULSHAN Haque. Pt in stable condition, endorsed plan of care.
--- NOTE | 2020-02-03 19:30 | NUR ---
NURSE NOTES: Report received from GULSHAN Harvey. Observed pt lying in the bed, awake, A/O x4. SR on monitoring specialist. On 2L NC, no sob. F/C intact and draining well. IV on R UA PICC, running NS at 100ml/hr. Bed in the lowest position. Side rails up x3. Will continue to monitor.
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
[2020-02-03 20:00] VITALS: BP 102/70
[2020-02-03] MEDS ORDERED: Gentamicin Rx monitoring MISC PRN (20:00)
[2020-02-03] MEDS: Dyna-Hex 2% Top Sol 2oz TOPIC SCH (20:09)
[2020-02-03] MEDS: HydrOXYzine tab 25mg tab ORAL PRN (20:22)
[2020-02-03] MEDS: GENTAMICIN IVPB SCH (22:37)
[2020-02-03] MEDS: NS IVPB SCH (22:37)
[2020-02-03] MEDS ORDERED: Lidocaine 1% Plain 30 ml INJ ONE (23:15)
[2020-02-03] MEDS ORDERED: Heparin1,000 units/500ml Premix(Conc:2 units/ml) IV ONE (23:15)
[2020-02-04] VITALS (7 sets, daily range): BP systolic 101–129; BP diastolic 58–81
--- NOTE | 2020-02-04 | NUR ---
NURSE NOTES: pt sleeping in the bed. No acute distress noted at this time. PRN pain med given per pt c/o pain at wound site. VS WNL. Will continue to monitor.
[2020-02-04] MEDS: Vancomycin 1.5gm/NS Premix 275 ML IVPB SCH ×3 (00:31→16:07)
[2020-02-04] MEDS: HYDROmorphone 1mg/ml Carpuject IVP PRN ×5 (02:31→21:58)
--- NOTE | 2020-02-04 06:00 | NUR ---
NURSE NOTES: pt refused blood draw for am lab now. per pt he will let the lab draw blood after 0900. Will endorse to AM RN.
--- NOTE | 2020-02-04 07:00 | NUR ---
HAND-OFF: Report given to GULSHAN Ruvalcaba.
--- NOTE | 2020-02-04 07:30 | NUR ---
NURSE NOTES: Received report from GULSHAN Velasquez. The patient is resting on the bed but being complaining of generalized pain. The patient is AOx4 and able to make needs known. The patient's bed in the lowest position, call light in reach, and fall and aspiration precaution reinforced. The patient is paraplegia and needs Q2hr turn schedule. The patient is positive for COVID at this time. The patient is on 4L NC and oxygen saturation within normal range. The patient is on Mackay and urine draining with gravity. Stage IV sacrum skin issue noted. The patient has SANTA double lumen PICC line that is intact but no blood draw can be done at this time. Dr. Fuller ordered to fix PICC line on 02/05/2020. The patient has been refusing lab. Will closely monitor the patient.
[2020-02-04] MEDS: Dakin's 0.125% Soln (Quarter Strength) 16oz TOPIC SCH (08:37)
[2020-02-04] MEDS: Enoxaparin 40mg Inj SUBQ SCH (08:37)
--- NOTE | 2020-02-04 10:00 | NUR ---
NURSE NOTES: Medication administered by the primary nurse. Notified Dr. Sam regarding refusal of lab and x-ray orders. Will closely monitor the patient.
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
--- NOTE | 2020-02-04 12:00 | NUR ---
NURSE NOTES: Pain medication administered by the charge nurse. Changed dressing for sacral wound. Will closely monitor the patient. Will continue plan of care.
--- NOTE | 2020-02-04 16:00 | NUR ---
NURSE NOTES: The patient is sleeping without acute distress or shortness of breath. Tolerating 4L NC well. Will closely monitor the patient. Will continue plan of care.
--- NOTE | 2020-02-04 18:30 | NUR ---
NURSE NOTES: Administered pain medication for generalized pain. Vital signs stable. Will continue plan of care.
--- NOTE | 2020-02-04 19:20 | NUR ---
HAND-OFF: Report given to GULSHAN Trammell. The patient is resting on the bed without acute distress or shortness of breath. The patient is on stable condition. Endorsed plan of care.
--- NOTE | 2020-02-04 19:45 | NUR ---
NURSE NOTES: Report received from Vasyl GAFFNEY. Patient is awake and alert x 4. Patient noted to be on 4 liters of oxygen via nasal canula. Patient denies chest pain and shortness of breath at this time. Patient complains of generalized pain. Jp GAFFNEY made patient aware of when pain medication is due next. Patient noted to have PICC line in right upper arm. Endorsed to Jp GAFFNEY that PICC line does not have blood drawback at this time, endorsed to Jp GAFFNEY that it is to be fixed on February. Endorsed that patient has been refusing labs and some aspects of care, Doctor Sam aware per Vasyl GAFFNEY. Bed locked, in lowest position, alarmed, call light in reach. Will continue to follow plan of care.
[2020-02-04] MEDS ORDERED: Dyna-Hex 2% Top Sol 2oz TOPIC SCH ×2 (20:00)
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
[2020-02-04] MEDS: GENTAMICIN IVPB SCH (21:53)
[2020-02-04] MEDS: NS IVPB SCH (21:53)
[2020-02-05] VITALS: BP 118/57
[2020-02-05] MEDS: Vancomycin 1.5gm/NS Premix 275 ML IVPB SCH ×3 (00:01→17:20)
[2020-02-05] MEDS: HYDROmorphone 1mg/ml Carpuject IVP PRN ×6 (01:52→22:39)
--- NOTE | 2020-02-05 02:15 | Progress Note ---
DATE: 02/04/2020 SUBJECTIVE: The patient is in bed, no acute distress noted, calm, depressed, has anhedonia worthlessness, hopelessness, awaiting placement. MENTAL STATUS EXAMINATION: Alert and oriented times self, place, situation. Mood is neutral. Affect is flat. Thought processes is concrete. Thought content, no suicidal or homicidal ideation noted. ASSESSMENT: Major depressive disorder. PLAN: 1. We will continue antidepressant, Lexapro. 2. Remeron. 3. Provide the patient with reality orientation and supportive therapy. Basia Negrete M.D. DR: Eileen JOB#: [id number] CC:
[2020-02-05 04:00] VITALS: BP 120/50
[2020-02-05 08:00] VITALS: BP 120/50
[2020-02-05] MEDS ORDERED: Heparin1,000 units/500ml Premix(Conc:2 units/ml) IV ONE (08:00)
[2020-02-05] MEDS ORDERED: Lidocaine 1% Plain 30 ml INJ ONE (08:00)
--- NOTE | 2020-02-05 08:48 | NUR ---
RD ASSESSMENT & RECOMMENDATIONS SEE CARE ACTIVITY FOR COMPLETE ASSESSMENT DAILY ESTIMATED NEEDS: Needs based on paraplegia, wound, sepsis, obese 95.6kg adj 20-25 kcals/kg 8843-7475 total kcals 1.25-2 g protein/kg 120-191 g total protein 25-30 mL/kg 5474-2026 total fluid mLs NUTRITION DIAGNOSIS: 1) Increase Kcal and protein needs r/t wound healing as evidenced by pt w/ multiple full thickness wounds, refer to WC eval. 2) Altered GI function r/t colostomy as evidenced by h/o paraplegia with colostomy. CURRENT DIET: Regular PO DIET RECOMMENDATIONS: Regular (no corn, beans, fried foods, seafood per SNF record) ADDITIONAL RECOMMENDATIONS: 1) Per SNF: 6'2" and 271# 2) Wound care: Add MVI w/ min x 1, Vit C 500mg BID Jorge 1pkt BID 3) High protein snacks in b/w meals 4) Updated CBC BMP as able- pt refusing blood work at this time 5) Monitor PO intake- poor at this time (R-50%) add Ensure Enlive BID for now (350kcal/20g prot per bottle)
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
--- NOTE | 2020-02-05 09:38 | NUR ---
CASE MANAGEMENT:REVIEW 02/05/20 SI: SEPSIS. COVID 19 PNA. MRSA BACTEREMIA. E COLI UTI. STAGE IV DECUB ULCER 98.2 55 20 120/50 99% ON 4L/NC IS: IV VANCOMYCIN Q8HRS IV GENTAMICIN Q24 IVF@100/HR BACLOFEN PO TID REMERON PO QHS LEXAPRO PO QD LOVENOX SQ QD : TELEMETRY STATUS DCP: FROM [facility] PLAN: CONTINUE ISOLATION MONITOR TEMP ~ LAST TEMP WAS ON 02/03/20
[2020-02-05] MEDS: Dakin's 0.125% Soln (Quarter Strength) 16oz TOPIC SCH ×2 (10:00→13:33)
[2020-02-05] MEDS: Enoxaparin 40mg Inj SUBQ SCH (10:00)
[2020-02-05 12:00] VITALS: BP 130/50
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
[2020-02-05] MEDS ORDERED: Heparin1,000 units/500ml Premix(Conc:2 units/ml) IV PRN (13:15)
[2020-02-05] MEDS ORDERED: Lidocaine 1% Plain 30 ml INJ PRN (13:15)
--- NOTE | 2020-02-05 13:38 | NUR ---
*-* INSURANCE *-* UPDATED AVAILABLE CLINICALS HAVE BEEN FAXED TO: TASHA HINTON NCM:SUNDEEP ext [phone] [employer] Tr[employer] Nazario Ayala [phone]
[2020-02-05] MEDS: Hydromorphone 0.5mg/0.5ml inj IVP SCH (13:45)
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
[2020-02-05 14:45] LABS: BASOPHILS % (AUTO) 0.2 % (0.0-2.0); EOSINOPHILS % (AUTO) 2.8 % (0.0-3.0); HEMATOCRIT 27.5 % (42.0-52.0); HEMOGLOBIN 8.3 G/DL (14.2-18.0); LYMPHOCYTES % (AUTO) 22.6 % (20.0-45.0); MEAN CORPUSCULAR VOLUME 74 FL (80-99); MONOCYTES % (AUTO) 7.6 % (1.0-10.0); NEUTROPHILS % (AUTO) 66.7 % (45.0-75.0); PLATELET COUNT 444 K/UL (150-450); RED CELL DISTRIBUTION WIDTH 17.1 % (11.6-14.8); WHITE BLOOD COUNT 7.4 K/UL (4.8-10.8)
[2020-02-05 14:56] LABS: ANION GAP 9 mmol/L (5-15); CALCIUM 8.1 MG/DL (8.5-10.1); CARBON DIOXIDE 29 MMOL/L (21-32); CHLORIDE 102 MMOL/L (98-107); CREATININE 0.5 MG/DL (0.55-1.30); POTASSIUM 3.2 MMOL/L (3.5-5.1); SODIUM 140 MMOL/L (136-145)
[2020-02-05 15:14] LABS: BLOOD UREA NITROGEN 2 mg/dL (7-18)
--- NOTE | 2020-02-05 15:18 | Diagnostic Imaging Report ---
Indications: Malfunctioning pre-existing PICC Technique: Procedure performed at bedside. Procedural timeout performed. Total sterile technique, including sterile probe cover and sterile gel, sterile gloves, hand hygiene, hat, mask,, sterile gown, large sterile drape, and preparation with 2% chlorhexidine utilized. Local anesthesia with 1% lidocaine. A guidewire was passed through the pre-existing PICC, and the PICC was removed. A 4 Bhutanese peel-away sheath was placed over the guidewire. 4 Bh[place] Bard dual-lumen power PICC cut to 45 cm. It was inserted through the peel-away sheath. Peel-away sheath and guidewire removed. Catheter fixed to the skin. Both catheter ports aspirated and flushed. Patient tolerated procedure well, without immediate complication. Followup chest x-ray obtained, documents catheter tip position at the cavoatrial junction. No fluoroscopy or sonography utilized Impression: Successful bedside exchange of right arm PICC under sonographic guidance, as described above.
--- NOTE | 2020-02-05 15:42 | Pre-Procedure Note/Attestation ---
Pre-Procedure Note/Attestation Complete Prior to Procedure Planned Procedure: right Procedure Narrative: PICC exchange Indications for Procedure Pre-Operative Diagnosis: needs alf IV access, malfunctioning PICC Attestation I attest that I discussed the nature of the procedure; its benefits; risks and complications; and alternatives (and the risks and benefits of such alternatives ), prior to the procedure, with the patient (or the patient's legal plastic products sales representative). I attest that, if there was a reasonable possibility of needing a blood transfusion, the patient (or the patient's legal plastic products sales representative) was given the [facility] standardized written summary, pursuant to the David Ballplay Blood Safety Act ([place] Health and Safety Code # 1645, as amended). I attest that I re-evaluated the patient just prior to the surgery and that there has been no change in the patient's H&P, except as documented below: Dom Cummings MD February 05, 2020 15:42
--- NOTE | 2020-02-05 15:43 | Brief Operative Note ---
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
[2020-02-05 16:00] VITALS: BP 128/70
[2020-02-05] MEDS: DiphenhydrAMINE 25mg Tab ORAL PRN (19:48)
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
[2020-02-05 20:55] VITALS: BP 134/70
--- NOTE | 2020-02-05 21:05 | NUR ---
Received report from Linsey, charge nurse. Rounded to see pt, resting in bed in supine position, resp even. no distress noted. c/o generalized pain, will f/u prn meds. IVF infusing well to Right upper arm PICC.
[2020-02-05] MEDS: Dyna-Hex 2% Top Sol 2oz TOPIC SCH (21:10)
[2020-02-05] MEDS: GENTAMICIN IVPB SCH (22:30)
[2020-02-05] MEDS: NS IVPB SCH (22:30)
[2020-02-06] VITALS: BP 130/73
--- NOTE | 2020-02-06 01:14 | Progress Note ---
DATE: 02/05/2020 SUBJECTIVE: The patient is in bed, no acute distress. Complains of depression and anxiety. Currently on psychotropic medication. The patient is not suicidal or homicidal. Awaiting placement. MENTAL STATUS EXAMINATION: Alert and oriented to times, self, place, and situation. Mood is depressed. Affect is constricted. Congruent with mood. Thought process is concrete. Thought content, no suicidal or homicidal ideation. PLAN: The patient to be discharged when medically cleared. Basia Negrete M.D. DR: Nohemy JOB#: [id number] CC:
[2020-02-06] MEDS: Vancomycin 1.5gm/NS Premix 275 ML IVPB SCH ×3 (01:24→16:23)
[2020-02-06] MEDS: HYDROmorphone 1mg/ml Carpuject IVP PRN ×6 (02:30→22:34)
[2020-02-06 04:00] VITALS: BP 132/68
--- NOTE | 2020-02-06 07:05 | NUR ---
HAND-OFF: Report given to GULSHAN Hinton.
--- NOTE | 2020-02-06 07:30 | NUR ---
NURSE NOTES: Received report from GULSHAN HOLBROOK. Pt is awake and alert. pt has PICC SANTA is running well. Pt is on continues heart monitoring. no complain of pain at this moment. all needs attended, bed is locked and is in the lowest position. call light within easy reach. will continue to monitor.
[2020-02-06 08:00] VITALS: BP 133/63
[2020-02-06 08:20] LABS: BASOPHILS % (AUTO) 0.4 % (0.0-2.0); EOSINOPHILS % (AUTO) 4.1 % (0.0-3.0); HEMATOCRIT 25.5 % (42.0-52.0); LYMPHOCYTES % (AUTO) 25.6 % (20.0-45.0); MEAN CORPUSCULAR VOLUME 74 FL (80-99); MONOCYTES % (AUTO) 10.9 % (1.0-10.0); PLATELET COUNT 428 K/UL (150-450); RED BLOOD COUNT 3.46 M/UL (4.70-6.10); RED CELL DISTRIBUTION WIDTH 16.9 % (11.6-14.8); WHITE BLOOD COUNT 5.3 K/UL (4.8-10.8)
[2020-02-06 08:28] LABS: ANION GAP 9 mmol/L (5-15); BLOOD UREA NITROGEN 1 mg/dL (7-18); CALCIUM 7.6 MG/DL (8.5-10.1); CARBON DIOXIDE 30 MMOL/L (21-32); CHLORIDE 105 MMOL/L (98-107); CREATININE 0.5 MG/DL (0.55-1.30); POTASSIUM 3.1 MMOL/L (3.5-5.1); SODIUM 143 MMOL/L (136-145)
[2020-02-06] MEDS: Enoxaparin 40mg Inj SUBQ SCH (08:38)
[2020-02-06] MEDS: Dakin's 0.125% Soln (Quarter Strength) 16oz TOPIC SCH (08:38)
--- NOTE | 2020-02-06 08:47 | NUR ---
NURSE NOTES: Dr PETE visited pt and is aware about K 3.1 and other lab results and V/S, ordered KCLM 40 meq po once, noted and carried out. will continue to monitor.
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
--- NOTE | 2020-02-06 10:25 | NUR ---
CASE MANAGEMENT:REVIEW 02/06/20 SI: SEPSIS. COVID 19 PNA. MRSA BACTEREMIA. E COLI UTI. STAGE IV DECUB ULCER 98.2 60 20 133/63 99% ON 4L/NC IS: IV VANCOMYCIN Q8HRS IV GENTAMICIN Q24 IVF@100/HR BACLOFEN PO TID REMERON PO QHS LEXAPRO PO QD LOVENOX SQ QD : TELEMETRY STATUS DCP: FROM [facility] PLAN: CONTINUE ISOLATION COVID 19 TEST TESTED ON 01/24/20 RESULTED ON 01/27/20 ~ DETECTED TESTED ON 01/29/20 RESULTED ON 01/31/20 ~ DETECTED LAST TEMP ON 02/23/20 ~ T100.5 Addendum: 02/06/20 at 1032 by SUSHILA BARCENAS LVN LVN ABOVE CORRECTION LAST TEMP 02/03/20 T-100.5
--- NOTE | 2020-02-06 10:58 | NUR ---
*-* INSURANCE *-* UPDATED AVAILABLE CLINICALS HAVE BEEN FAXED TO: TASHA FARFANM:SUNDEEP #[phone] ext [phone]
--- NOTE | 2020-02-06 13:26 | NUR ---
NURSE NOTES: Received report from CHIEF OF SERVICEGULSHAN AGUILAR at 1215. Pt is awake and alert. pt has intact iv access RFA 20G, blood transfusion is running well. Pt is on continues heart monitoring but some times refuses and take them off. no complain of pain at this moment. pt consumed 100% lunch and tolerated well. all belongings checked by RN and are with pt. skin is intact. all needs attended, bed is locked and is in the lowest position. call light within easy reach. will continue to monitor. Addendum: 02/06/20 at 1331 by Jamaal Vaughn RN ERROR WRONG PT.
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
[2020-02-06 16:00] VITALS: BP 117/63
[2020-02-06] MEDS ORDERED: Naloxone 0.4mg/ml Inj IVP PRN (16:18)
--- NOTE | 2020-02-06 18:33 | NUR ---
NURSE NOTES: RN couldn't scan gabapentin, so 9 gabapentin 100mg administered and signed manually.
--- NOTE | 2020-02-06 19:30 | NUR ---
HAND-OFF: Report given to ANGELINE GAFFNEY. Pt is awake and stable.
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
--- NOTE | 2020-02-06 19:35 | NUR ---
NURSE NOTES: Got report from Jamaal GAFFNEY. Pt in stable condition. Denies any pain. Denies any n/v or SOB. No s/s of distress or discomfort noted. Pt resting in bed comfortably. Bed in low and locked position, call light within reach, bedside table within reach. Continue to monitor.
[2020-02-06 20:00] VITALS: BP 110/57
[2020-02-06] MEDS: Dyna-Hex 2% Top Sol 2oz TOPIC SCH (20:00)
[2020-02-06] MEDS: GENTAMICIN IVPB SCH (22:34)
[2020-02-06] MEDS: NS IVPB SCH (22:34)
[2020-02-07] VITALS: BP 107/53
[2020-02-07] MEDS: Vancomycin 1.5gm/NS Premix 275 ML IVPB SCH ×3 (00:01→16:06)
[2020-02-07 04:00] VITALS: BP 112/62
[2020-02-07] MEDS: HYDROmorphone 1mg/ml Carpuject IVP PRN ×5 (05:59→22:47)
--- NOTE | 2020-02-07 07:15 | NUR ---
HAND-OFF: Report given to Leroy GAFFNEY.
[2020-02-07 08:00] VITALS: BP 121/74
[2020-02-07] MEDS: Enoxaparin 40mg Inj SUBQ SCH (08:25)
[2020-02-07] MEDS: Dakin's 0.125% Soln (Quarter Strength) 16oz TOPIC SCH (08:25)
--- NOTE | 2020-02-07 08:26 | NUR ---
NURSE NOTES: Patient refused morning medications, states, "I'm tired." Patient refusing lab draw. Will inform the lab. I told the patient that the Vanco Trough was a timed test. He still refused.
--- NOTE | 2020-02-07 08:28 | NUR ---
NURSE NOTES: Patient in semi-Sanchez's position, awake and alert to name, room is dark, curtains drawn, bed in lowest position, call light within reach, no c/o pain, no SOB, in no apparent distress.
--- NOTE | 2020-02-07 11:25 | NUR ---
CASE MANAGEMENT:REVIEW 02/06/20 SI: SEPSIS. COVID 19 PNA. MRSA BACTEREMIA. E COLI UTI. STAGE IV DECUB ULCER 99.0 79 20 121/74 97% ON 4L/NC IS: IV VANCOMYCIN Q8HRS IV GENTAMICIN Q24 IVF@100/HR BACLOFEN PO TID REMERON PO QHS LEXAPRO PO QD LOVENOX SQ QD : TELEMETRY STATUS DCP: FROM [facility] PLAN: CONTINUE ISOLATION COVID 19 TEST TESTED ON 01/24/20 RESULTED ON 01/27/20 ~ DETECTED TESTED ON 01/29/20 RESULTED ON 01/31/20 ~ DETECTED TESTED ON 02/06/20 ~ RESULTS PENDING LAST TEMP ON 02/03/20 ~ T100.5 Addendum: 02/07/20 at 1132 by SUSHILA BARCENAS LVN LVN ABOVE REVIEW IS FOR 02/07/20
--- NOTE | 2020-02-07 11:36 | NUR ---
CASE MANAGEMENT:REVIEW 02/07/20 SI: SEPSIS. COVID 19 PNA. MRSA BACTEREMIA. E COLI UTI. STAGE IV DECUB ULCER 99.0 79 20 121/74 97% ON 4L/NC IS: IV VANCOMYCIN Q8HRS IV GENTAMICIN Q24 IVF@100/HR BACLOFEN PO TID REMERON PO QHS LEXAPRO PO QD LOVENOX SQ QD : TELEMETRY STATUS DCP: FROM [facility] PLAN: CONTINUE ISOLATION COVID 19 TEST TESTED ON 01/24/20 RESULTED ON 01/27/20 ~ DETECTED TESTED ON 01/29/20 RESULTED ON 01/31/20 ~ DETECTED TESTED ON 02/06/20 ~ RESULTS PENDING LAST TEMP ON 02/03/20 ~ T100.5
[2020-02-07 12:00] VITALS: BP 116/73
[2020-02-07 14:16] LABS: ALANINE AMINOTRANSFERASE 17 U/L (12-78); ALBUMIN 2.4 G/DL (3.4-5.0); ALBUMIN/GLOBULIN RATIO 0.4 (1.0-2.7); ALKALINE PHOSPHATASE 63 U/L (46-116); ANION GAP 11 mmol/L (5-15); ASPARTATE AMINO TRANSFERASE 16 U/L (15-37); BILIRUBIN,TOTAL 0.2 MG/DL (0.2-1.0); BLOOD UREA NITROGEN 2 mg/dL (7-18); CALCIUM 8.1 MG/DL (8.5-10.1); CARBON DIOXIDE 29 MMOL/L (21-32); CHLORIDE 103 MMOL/L (98-107); CREATININE 0.6 MG/DL (0.55-1.30); POTASSIUM 3.1 MMOL/L (3.5-5.1); SODIUM 143 MMOL/L (136-145)
--- NOTE | 2020-02-07 14:31 | NUR ---
*-* INSURANCE *-* UPDATED AVAILABLE CLINICALS HAVE BEEN FAXED TO: TASHA FARFANM:SUNDEEP #[phone] ext [phone]
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
[2020-02-07 15:20] LABS: BASOPHILS % (AUTO) 0.6 % (0.0-2.0); EOSINOPHILS % (AUTO) 3.7 % (0.0-3.0); HEMATOCRIT 29.2 % (42.0-52.0); HEMOGLOBIN 8.6 G/DL (14.2-18.0); LYMPHOCYTES % (AUTO) 29.2 % (20.0-45.0); MEAN CORPUSCULAR VOLUME 78 FL (80-99); MONOCYTES % (AUTO) 6.3 % (1.0-10.0); NEUTROPHILS % (AUTO) 60.2 % (45.0-75.0); PLATELET COUNT 534 K/UL (150-450); RED BLOOD COUNT 3.76 M/UL (4.70-6.10); RED CELL DISTRIBUTION WIDTH 18.9 % (11.6-14.8); WHITE BLOOD COUNT 7.1 K/UL (4.8-10.8)
[2020-02-07 16:00] VITALS: BP 117/77
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
--- NOTE | 2020-02-07 19:50 | NUR ---
NURSE NOTES: Received pt from GULSHAN Harper. Pt awake, alert, and talkative. Bed in lowest position. Call light within reach. Will continue to monitor.
--- NOTE | 2020-02-07 19:57 | NUR ---
HAND-OFF: Report given to Judith Gill RN. Patient sitting in supine position on soft care mattress, side rails up x 3, pillows under both arms and bilateral lower extremities, on 4 liters nasal cannual, PICC patent in right upper arm running magnesium replacement and IV hydration, pain treated with Dilaudid, bed in lowest position, call light within reach, patient alert and oriented, watching television, in no aopparent distress.
[2020-02-07 20:00] VITALS: BP 107/69
[2020-02-07] MEDS: Dyna-Hex 2% Top Sol 2oz TOPIC SCH (20:00)
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
[2020-02-07] MEDS: NS IVPB SCH (22:49)
[2020-02-07] MEDS: GENTAMICIN IVPB SCH (22:49)
[2020-02-08] VITALS: BP 108/53
[2020-02-08] MEDS: Acetaminophen 500mg (ES) tab ORAL PRN (00:51)
--- NOTE | 2020-02-08 02:47 | NUR ---
NURSE NOTES: Dilaudid was given at 2:47am. Forgot to scan it into eMAR.
[2020-02-08 04:00] VITALS: BP 111/59
[2020-02-08] MEDS: HYDROmorphone 1mg/ml Carpuject IVP PRN ×4 (06:59→20:51)
--- NOTE | 2020-02-08 07:56 | NUR ---
HAND-OFF: Report given to GULSHAN Huber. Pt stable. Endorsed that pt refused blood draw and that tele box is missing. Also reported that GULSHAN Altman reported to me that she would cancel the order to remove condom cath because Dr. Quispe changed his mind. Addendum: 02/08/20 at 1934 by Judith Gill RN Last sentence meant for another patient.
--- NOTE | 2020-02-08 07:57 | NUR ---
NURSE NOTES: Received patient in bed asleep. No SOB or acute distress. PICC line intact and patent. FC intact. Refused blood draw, photo lab specialist aware. HOB elevated. Bed locked in lowest position. Call light within reach. Will continue plan of care.
[2020-02-08 08:00] VITALS: BP 116/73
[2020-02-08] MEDS: Enoxaparin 40mg Inj SUBQ SCH ×2 (08:12→08:48)
[2020-02-08] MEDS: Vancomycin 1.5gm/NS Premix 275 ML IVPB SCH ×3 (08:20→15:43)
[2020-02-08] MEDS: Dakin's 0.125% Soln (Quarter Strength) 16oz TOPIC SCH (08:20)
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
[2020-02-08 12:00] VITALS: BP 122/62
--- NOTE | 2020-02-08 14:09 | NUR ---
CASE MANAGEMENT:REVIEW 02/08/20 SI: SEPSIS. COVID 19 PNA. MRSA BACTEREMIA. E COLI UTI. STAGE IV DECUB ULCER SPIKED TEMP LAST NIGHT TO 102.2 97.7 76 21 122/62 97% ON 4L/NC IS: IV VANCOMYCIN Q8HRS IV GENTAMICIN Q24 IVF@100/HR BACLOFEN PO TID REMERON PO QHS LEXAPRO PO QD LOVENOX SQ QD : TELEMETRY STATUS DCP: FROM [facility]: CONTINUE ISOLATION COVID 19 TEST TESTED ON 01/24/20 RESULTED ON 01/27/20 ~ DETECTED TESTED ON 01/29/20 RESULTED ON 01/31/20 ~ DETECTED TESTED ON 02/06/20 RESULTED ON 02/08/20 ~ DETECTED LAST TEMP ON 02/07/20 @ 8PM ~ T~102.2
--- NOTE | 2020-02-08 14:13 | NUR ---
DISCHARGE PLANNING COVID 19 PNEUMONIA NOT READY TO RETURN TO SNF T~ 102.2 LAST NIGHT MUST BE AFEBRILE X72HRS PRIOR TO RETURNING TO SNF
--- NOTE | 2020-02-08 14:13 | NUR ---
NURSE NOTES: Blood draw done, sent to lab
[2020-02-08 14:29] LABS: ANION GAP 8 mmol/L (5-15); BLOOD UREA NITROGEN 2 mg/dL (7-18); CALCIUM 8.1 MG/DL (8.5-10.1); CARBON DIOXIDE 30 MMOL/L (21-32); CHLORIDE 102 MMOL/L (98-107); CREATININE 0.5 MG/DL (0.55-1.30); POTASSIUM 2.9 MMOL/L (3.5-5.1); SODIUM 140 MMOL/L (136-145)
--- NOTE | 2020-02-08 15:53 | NUR ---
NURSE NOTES: Potassium 2.9, left message for Dr Jensen, awaiting callback.
[2020-02-08 16:00] VITALS: BP 121/63
--- NOTE | 2020-02-08 16:22 | NUR ---
*-* INSURANCE *-* UPDATED AVAILABLE CLINICALS HAVE BEEN FAXED TO: TASHA FARFANM:SUNDEEP #[phone] ext [phone]
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
--- NOTE | 2020-02-08 19:32 | NUR ---
HAND-OFF: Report given to Aaliyah GAFFNEY.
[2020-02-08 20:00] VITALS: BP 125/65
[2020-02-08] MEDS: Dyna-Hex 2% Top Sol 2oz TOPIC SCH (20:33)
[2020-02-08] MEDS: GENTAMICIN IVPB SCH (23:05)
[2020-02-08] MEDS: NS IVPB SCH (23:05)
[2020-02-09] VITALS: BP 127/73
[2020-02-09] MEDS: Vancomycin 1.5gm/NS Premix 275 ML IVPB SCH ×3 (00:12→15:40)
[2020-02-09] MEDS: HYDROmorphone 1mg/ml Carpuject IVP PRN ×6 (00:51→21:47)
[2020-02-09 04:00] VITALS: BP 116/82
[2020-02-09] MEDS: Acetaminophen 500mg (ES) tab ORAL PRN (04:36)
[2020-02-09 05:21] LABS: BASOPHILS % (AUTO) 0.5 % (0.0-2.0); EOSINOPHILS % (AUTO) 4.3 % (0.0-3.0); HEMATOCRIT 27.3 % (42.0-52.0); HEMOGLOBIN 8.4 G/DL (14.2-18.0); LYMPHOCYTES % (AUTO) 30.8 % (20.0-45.0); MEAN CORPUSCULAR VOLUME 74 FL (80-99); MONOCYTES % (AUTO) 8.8 % (1.0-10.0); NEUTROPHILS % (AUTO) 55.7 % (45.0-75.0); PLATELET COUNT 556 K/UL (150-450); RED BLOOD COUNT 3.69 M/UL (4.70-6.10); RED CELL DISTRIBUTION WIDTH 17.6 % (11.6-14.8)
[2020-02-09 05:45] LABS: ALANINE AMINOTRANSFERASE 17 U/L (12-78); ALBUMIN 2.2 G/DL (3.4-5.0); ALBUMIN/GLOBULIN RATIO 0.4 (1.0-2.7); ALKALINE PHOSPHATASE 73 U/L (46-116); ANION GAP 9 mmol/L (5-15); ASPARTATE AMINO TRANSFERASE 24 U/L (15-37); BILIRUBIN,TOTAL 0.2 MG/DL (0.2-1.0); BLOOD UREA NITROGEN 2 mg/dL (7-18); CALCIUM 7.8 MG/DL (8.5-10.1); CARBON DIOXIDE 30 MMOL/L (21-32); CHLORIDE 104 MMOL/L (98-107); CREATININE 0.7 MG/DL (0.55-1.30); SODIUM 143 MMOL/L (136-145)
[2020-02-09 06:03] LABS: POTASSIUM 2.7 MMOL/L (3.5-5.1)
--- NOTE | 2020-02-09 06:14 | NUR ---
NURSE NOTES: LEFT MESSAGE FOR DR. COPELAND AND DR. LE AT [phone] REGARDING POTASSIUM LEVEL OF 2.7. AWAITING CALL BACK.
--- NOTE | 2020-02-09 06:37 | NUR ---
NURSE NOTES: LEFT SECOND MESSAGE FOR DR. COPELAND REGARDING PATIENT'S POTASSIUM LEVEL OF 2.7. AWAITING CALL BACK.
--- NOTE | 2020-02-09 06:45 | NUR ---
RECEIVED NEW ORDERS FROM DR. PETE REGARDING POTASSIUM LEVEL. NOTED AND CARRIED OUT.
--- NOTE | 2020-02-09 07:33 | NUR ---
HAND-OFF: Report given to GULSHAN BARNHART. PLAN OF CARE ENDORSED.
--- NOTE | 2020-02-09 07:34 | NUR ---
NURSE NOTES: Recieved patient in bed awake. No SOB or acute distress. IV line intact and patent. FC intact, draining yellow colored urine. Wound dressings intact. HOB elevated. Bed locked in lowest position. Call light within reach. Will continue plan of care.
[2020-02-09 08:00] VITALS: BP 110/58
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
[2020-02-09] MEDS: Enoxaparin 40mg Inj SUBQ SCH (09:00)
[2020-02-09] MEDS: Dakin's 0.125% Soln (Quarter Strength) 16oz TOPIC SCH (09:09)
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
--- NOTE | 2020-02-09 10:17 | NUR ---
CASE MANAGEMENT:REVIEW 02/09/20 SI: SEPSIS. COVID 19 PNA. MRSA BACTEREMIA. E COLI UTI. STAGE IV DECUB ULCER 100.4 67 20 116/82 100% ON 2L/NC H/H-8./27.3 K-2.7 IS: IV MAG SULFATE Q1HRS X2 BAGS IV KCL Q1HRS X4 BAGS IV VANCOMYCIN Q8HRS IV GENTAMICIN Q24 IVF@100/HR BACLOFEN PO TID REMERON PO QHS LEXAPRO PO QD LOVENOX SQ QD : TELEMETRY STATUS DCP: FROM [facility] PLAN: CONTINUE ISOLATION COVID 19 TEST TESTED ON 01/24/20 RESULTED ON 01/27/20 ~ DETECTED TESTED ON 01/29/20 RESULTED ON 01/31/20 ~ DETECTED TESTED ON 02/06/20 RESULTED ON 02/08/20 ~ DETECTED LAST TEMP ON 02/09/20 @ 4AM ~ T~100.4
--- NOTE | 2020-02-09 10:26 | NUR ---
DISCHARGE PLANNING COVID 19 DETECTED X4 PATIENT IS FROM [facility] AND IS NOT READY FOR DISCHARGE TODAY D/T T~100.4 AND K-2.7 THIS AM PATIENT NEEDS TO BE AFEBRILE FOR 72 HRS PRIOR TO RETURNING TO RETIREMENT
[2020-02-09 11:57] VITALS: BP 111/55
--- NOTE | 2020-02-09 12:12 | NUR ---
*-* INSURANCE *-* UPDATED AVAILABLE CLINICALS HAVE BEEN FAXED TO: TASHA FARFANM:SUNDEEP #[phone] ext [phone]
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
[2020-02-09 15:35] VITALS: BP 113/59
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
--- NOTE | 2020-02-09 19:48 | NUR ---
HAND-OFF: Report given to Aaliyah GAFFNEY. Patient refused dressing change during day shift.
--- NOTE | 2020-02-09 19:51 | NUR ---
NURSE NOTES: RECEIVED REPORT FROM GULSHAN BARNHART. PATIENT AWAKE IN BED, ALERT, OX4, VERBALLY RESPONSIVE AND ABLE TO MAKE NEEDS KNOWN. BREATHING IS EVEN AND UNLABORED ON 2L VIA NC, NO S/SX OF DISTRESS. NO COMPLAINTS OF PAIN OR DISCOMFORT AT THIS TIME. SANTA PICC LINE ASYMPTOMATIC, PATENT AND INTACT WITH FLUIDS RUNNING PRESCRIBED. COTO CATHETER DRAINING WELL TO GRAVITY- URINE CLEAR AND YELLOW. COLOSTOMY BAG IN LLQ EMPTY. DROPLET AND CONTACT PRECAUTIONS IN PLACE. BED LOCKED AND IN LOWEST POSITION WITH SIDERAILS UP X 3. CALL LIGHT WITHIN REACH. WILL CONTINUE TO MONITOR FOR ANY CHANGES.
[2020-02-09 20:00] VITALS: BP 125/77
[2020-02-09] MEDS: Dyna-Hex 2% Top Sol 2oz TOPIC SCH (20:20)
[2020-02-09] MEDS: Zolpidem 5mg tab ORAL PRN (21:46)
--- NOTE | 2020-02-09 22:00 | NUR ---
NURSE NOTES: PATIENT REFUSED WOUND CARE X 2. EDUCATED PATIENT ON THE IMPORTANCE OF WOUND CARE, BUT PATIENT STILL REFUSED- PER PATIENT, HE "KNOWS WHEN IT'S TIME FOR A CHANGE". PATIENT ALSO REFUSING TO BE REPOSITIONED AT THIS TIME. WILL TRY AGAIN.
[2020-02-09 22:42] LABS: APPEARANCE,URINE CLEAR; BILIRUBIN, URINE NEGATIVE (NEGATIVE); COLOR,URINE PALE YELLOW; GLUCOSE, URINE (UA) NEGATIVE (NEGATIVE); KETONES,URINE NEGATIVE (NEGATIVE); LEUKOCYTE ESTERASE ,URINE 3+ (NEGATIVE); NITRITE,URINE NEGATIVE (NEGATIVE); PH,URINE 8 (4.5-8.0); PROTEIN,URINE 2+ (NEGATIVE); UROBILINOGEN,URINE NORMAL MG/DL (0.0-1.0)
[2020-02-09] MEDS: NS IVPB SCH (22:59)
[2020-02-09] MEDS: GENTAMICIN IVPB SCH (22:59)
[2020-02-10] VITALS: BP 95/61
[2020-02-10] MEDS: Vancomycin 1.5gm/NS Premix 275 ML IVPB SCH ×3 (00:19→17:33)
[2020-02-10] MEDS: HYDROmorphone 1mg/ml Carpuject IVP PRN ×6 (01:54→22:19)
[2020-02-10 04:00] VITALS: BP 117/63
--- NOTE | 2020-02-10 07:50 | NUR ---
HAND-OFF: Report given to GULSHAN MONTANO. PLAN OF CARE ENDORSED.
--- NOTE | 2020-02-10 07:51 | NUR ---
NURSE NOTES: Received report from Aaliyah/RN, patient is awake and alert, lying semi-kay's on bed, eating breakfast, On 2L Nasal canula, no acute distress/SOB noted. Able to make needs known, Complaining of pain, Pain med is not due at this time, PICC line on right upper arm, patent, no bleeding or infiltration noted. Bed in lowest position and locked, Call light within reach, Encouraged to use call light when needed. Will continue plan of care.
[2020-02-10 08:00] VITALS: BP 114/67
[2020-02-10 08:04] LABS: BASOPHILS % (AUTO) 0.5 % (0.0-2.0); EOSINOPHILS % (AUTO) 3.7 % (0.0-3.0); HEMATOCRIT 34.2 % (42.0-52.0); HEMOGLOBIN 10.6 G/DL (14.2-18.0); LYMPHOCYTES % (AUTO) 28.1 % (20.0-45.0); MEAN CORPUSCULAR VOLUME 75 FL (80-99); MONOCYTES % (AUTO) 8.8 % (1.0-10.0); PLATELET COUNT 428 K/UL (150-450); RED BLOOD COUNT 4.56 M/UL (4.70-6.10); RED CELL DISTRIBUTION WIDTH 18.1 % (11.6-14.8); WHITE BLOOD COUNT 4.9 K/UL (4.8-10.8)
[2020-02-10 08:48] LABS: ALANINE AMINOTRANSFERASE 20 U/L (12-78); ALBUMIN 2.2 G/DL (3.4-5.0); ALBUMIN/GLOBULIN RATIO 0.4 (1.0-2.7); ALKALINE PHOSPHATASE 70 U/L (46-116); ANION GAP 9 mmol/L (5-15); ASPARTATE AMINO TRANSFERASE 19 U/L (15-37); BILIRUBIN,TOTAL 0.2 MG/DL (0.2-1.0); BLOOD UREA NITROGEN 2 mg/dL (7-18); CALCIUM 8.1 MG/DL (8.5-10.1); CARBON DIOXIDE 28 MMOL/L (21-32); CHLORIDE 104 MMOL/L (98-107); CREATININE 0.8 MG/DL (0.55-1.30); PHOSPHORUS 3.8 MG/DL (2.5-4.9); POTASSIUM 2.8 MMOL/L (3.5-5.1); SODIUM 141 MMOL/L (136-145)
[2020-02-10] MEDS: Enoxaparin 40mg Inj SUBQ SCH (09:56)
[2020-02-10] MEDS: Dakin's 0.125% Soln (Quarter Strength) 16oz TOPIC SCH (09:58)
[2020-02-10 12:00] VITALS: BP 108/61
[2020-02-10] MEDS ORDERED: Tubing IV Secondary IV ONE (14:22)
[2020-02-10 16:00] VITALS: BP 117/61
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
--- NOTE | 2020-02-10 18:15 | NUR ---
NURSE NOTES: Patient refused Potassium 100 mEq PO. Will notify
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
--- NOTE | 2020-02-10 19:34 | NUR ---
HAND-OFF: Report given to Leonela/RN. Patient is in stable condition. Endorsed plan of care.
[2020-02-10 20:00] VITALS: BP 127/77
--- NOTE | 2020-02-10 20:16 | NUR ---
NURSE NOTES: Received report from GULSHAN Saeed. Patient AO x4. Shows no signs of distress or pain at the time. R Upper arm lumen is patent and flushed. There are no signs of infection, erythema, or bleeding. Bed in the lowest position, call light within reach, side rails up x 3, and bed brakes on. Will continue plan of care.
[2020-02-10] MEDS: Dyna-Hex 2% Top Sol 2oz TOPIC SCH (21:22)
[2020-02-10] MEDS: GENTAMICIN IVPB SCH (22:19)
[2020-02-10] MEDS: Zolpidem 5mg tab ORAL PRN (22:19)
[2020-02-10] MEDS: NS IVPB SCH (22:19)
[2020-02-11] VITALS: BP 108/61
[2020-02-11] MEDS: Vancomycin 1.5gm/NS Premix 275 ML IVPB SCH ×4 (00:46→23:34)
[2020-02-11 04:00] VITALS: BP 102/64
[2020-02-11] MEDS: HYDROmorphone 1mg/ml Carpuject IVP PRN ×5 (05:20→22:03)
--- NOTE | 2020-02-11 06:08 | NUR ---
NURSE NOTES: Found 3 yellow capsules with the number 215 in patients gown. When I asked the patient what they were he declined to answer. Sent them to pharmacy to ID medication.
--- NOTE | 2020-02-11 07:27 | NUR ---
NURSE NOTES: Received report from Leonela/RN, patient is awake and alert, lying semi-kay's on bed, resting comfortably, On 2L Nasal canula, no acute distress/SOB noted. Able to make needs known, Denies pain at this time, PICC line on right upper arm, patent, no bleeding or infiltration noted. Mackay daring well to gravity, Colostomy bag sealed and intact. Bed in lowest position and locked, Side-rails up x3, Call light within reach, Encouraged to use call light when needed. Will continue plan of care.
--- NOTE | 2020-02-11 07:44 | NUR ---
HAND-OFF: Report given to GULSHAN Saeed. patient shows no signs of distress or pain at the time. Endorsed plan of care.
[2020-02-11 08:00] VITALS: BP 106/65
[2020-02-11] MEDS: Enoxaparin 40mg Inj SUBQ SCH (09:21)
[2020-02-11] MEDS: Dakin's 0.125% Soln (Quarter Strength) 16oz TOPIC SCH (09:23)
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
[2020-02-11 12:00] VITALS: BP 107/64
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
[2020-02-11 16:00] VITALS: BP 110/68
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
[2020-02-11] MEDS ORDERED: Lidocaine 1% Plain 30 ml INJ PRN (16:45)
[2020-02-11] MEDS ORDERED: Heparin1,000 units/500ml Premix(Conc:2 units/ml) IV PRN (16:45)
--- NOTE | 2020-02-11 19:15 | NUR ---
HAND-OFF: Report given to Pretty/RN. Patient is in stable condition. Endorsed plan of care.
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
--- NOTE | 2020-02-11 19:40 | NUR ---
NURSE NOTES: Received report from GULSHAN Wilkins. Patient is awake, alert and oriented x 4. On regular, can swallow whole pill. steel rigger is on, shows sinus rhythm, no chest pain at this time. On oxygen via nasal cannula @ 2lpm with no shortness or difficulty of breathing reported. IV site is on right upper arm double lumen pickline IV fluid of NS + 20 meqs KCL @ 100 cc/hour. Safety measures are in placed, bed in lowest and lock position. Bed alarm is on, side rails up x 2. Call light and bedside table within reach. Will continue plan of care.
[2020-02-11 20:00] VITALS: BP 112/58
[2020-02-11] MEDS: Dyna-Hex 2% Top Sol 2oz TOPIC SCH ×2 (20:10→20:11)
[2020-02-11] MEDS: LORazepam 1mg tab ORAL PRN (20:15)
--- NOTE | 2020-02-11 22:45 | NUR ---
NURSE NOTES: Patient called and asked me to assessed his penis, upon assessment noted that the urethral opening has a skin tear on the opening itself measured about 2cm, no active bleeding, Called Dr. Jensen and left a message.
--- NOTE | 2020-02-11 23:10 | NUR ---
NURSE NOTES: Spoke with Dr. Sam and informed her about the skin assessment on penile area. No orders was made.
[2020-02-11] MEDS: GENTAMICIN IVPB SCH (23:28)
[2020-02-11] MEDS: NS IVPB SCH (23:28)
[2020-02-12] VITALS: BP 107/61
[2020-02-12] MEDS: HYDROmorphone 1mg/ml Carpuject IVP PRN ×5 (03:17→21:29)
[2020-02-12 04:00] VITALS: BP 117/60
--- NOTE | 2020-02-12 07:30 | NUR ---
HAND-OFF: Report given to GULSHAN Russo. Patient is in stable condition, asleep. RN made aware of skin tear on penile area and the schedule for replacement of PICC line. Plan of care endorsed.
[2020-02-12 08:00] VITALS: BP 110/65
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
[2020-02-12] MEDS: Vancomycin 1.5gm/NS Premix 275 ML IVPB SCH ×2 (08:17→15:28)
[2020-02-12] MEDS: Dakin's 0.125% Soln (Quarter Strength) 16oz TOPIC SCH (08:18)
[2020-02-12] MEDS: Enoxaparin 40mg Inj SUBQ SCH (08:19)
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
[2020-02-12] MEDS ORDERED: Cathflo Alteplase 2mg Inj INJ SCH (11:00)
[2020-02-12 12:00] VITALS: BP 115/71
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
--- NOTE | 2020-02-12 13:49 | NUR ---
*-* DISCHARGE PLANNING *-* PATIENT HAS BEEN REFERRED BACK TO: [facility] P: [phone] F: [phone] Addendum: 02/12/20 at 1401 by SUSHILA BARCENAS LVN LVN LUBRICATION SERVICER CALLED [facility] AND SPOKE WITH SUNDEEP ABOUT BEGINNING THE "LETTER OF AGREEMENT" PROCESS
--- NOTE | 2020-02-12 13:50 | NUR ---
CASE MANAGEMENT:REVIEW 02/12/20 SI: SEPSIS. COVID 19 PNA. MRSA BACTEREMIA. E COLI UTI. STAGE IV DECUB ULCER 98.9 77 18 110/65 100% ON 2L/NC IS: IV VANCOMYCIN Q8HRS IV GENTAMICIN Q24 IVF+KCL @100/HR MVI PO QD ZINC PO QD VIT C PO BID K-DUR PO BID LOVENOX SQ QD : TELEMETRY STATUS DCP: FROM [facility] PLAN: DISCHARGE PLANNING IS IN PROGRESS......[facility] WILL REQUEST A NEW LETTER OF AGREEMENT FOR THIS COVID 19 PATIENT SKILLED
--- NOTE | 2020-02-12 14:00 | NUR ---
*-* INSURANCE *-* UPDATED AVAILABLE CLINICALS HAVE BEEN FAXED TO: [facility]AS[facility] FARFANM:SUNDEEP #[phone] ext [phone]
[2020-02-12 16:00] VITALS: BP 106/67
[2020-02-12] MEDS: Ascorbic Acid 500mg tab ORAL SCH (17:01)
--- NOTE | 2020-02-12 18:04 | NUR ---
NURSE NOTES: pt refused wound dressing change multiple times. call light within reach. bed in lowest position, locked. no c/o pain. cathflo effective in picc patency, with blood return
[2020-02-12] MEDS: LORazepam 1mg tab ORAL PRN (18:33)
--- NOTE | 2020-02-12 19:27 | NUR ---
NURSE NOTES: Received patient in bed, awake, alert, oriented x4, on room air, regular diet, patient has colostomy, area is clean dry and intact. PICC line is on the right upper arm, inserted on 02/10/2020, dressing is clean dry and intact. Patient has a Mackay catheter, 16 fr, secured. No acute distress is noted, call light is within reach, bed is lowered, locked, alarm is on, will continue to monitor for comfort and safety.
[2020-02-12 20:00] VITALS: BP 149/85
[2020-02-12] MEDS: Dyna-Hex 2% Top Sol 2oz TOPIC SCH (20:27)
[2020-02-12] MEDS: Zolpidem 5mg tab ORAL PRN (21:29)
[2020-02-12] MEDS: NS IVPB SCH (23:04)
[2020-02-12] MEDS: GENTAMICIN IVPB SCH (23:04)
[2020-02-13] VITALS: BP 144/87
[2020-02-13] MEDS: Vancomycin 1.5gm/NS Premix 275 ML IVPB SCH ×3 (00:05→16:12)
[2020-02-13] MEDS: HYDROmorphone 1mg/ml Carpuject IVP PRN ×6 (01:22→22:11)
[2020-02-13 04:00] VITALS: BP 116/68
[2020-02-13 07:28] LABS: BASOPHILS % (AUTO) 0.4 % (0.0-2.0); EOSINOPHILS % (AUTO) 2.7 % (0.0-3.0); HEMATOCRIT 28.2 % (42.0-52.0); HEMOGLOBIN 8.8 G/DL (14.2-18.0); LYMPHOCYTES % (AUTO) 25.8 % (20.0-45.0); MEAN CORPUSCULAR VOLUME 75 FL (80-99); MONOCYTES % (AUTO) 8.5 % (1.0-10.0); NEUTROPHILS % (AUTO) 62.7 % (45.0-75.0); PLATELET COUNT 436 K/UL (150-450); RED BLOOD COUNT 3.77 M/UL (4.70-6.10); RED CELL DISTRIBUTION WIDTH 18.3 % (11.6-14.8); WHITE BLOOD COUNT 8.3 K/UL (4.8-10.8)
--- NOTE | 2020-02-13 07:28 | NUR ---
NURSE NOTES: Received pt from GULSH[facility] Gonsalez. Pt is awake and alert. pt is in RA, no SOB or acute respiratory distress noted. Pt has intact PICC SANTA is running well. Pt has colostomy in place is working well. pt has Mackay cath in place is working well. no complain of pain at this moment. Pt is eating breakfast by observation. all needs attended, bed is locked and is in the lowest position. call light within easy reach. will continue to monitor.
[2020-02-13 07:55] LABS: ANION GAP 12 mmol/L (5-15); BLOOD UREA NITROGEN 4 mg/dL (7-18); CALCIUM 8.2 MG/DL (8.5-10.1); CARBON DIOXIDE 27 MMOL/L (21-32); CHLORIDE 104 MMOL/L (98-107); CREATININE 0.9 MG/DL (0.55-1.30); SODIUM 143 MMOL/L (136-145)
[2020-02-13 08:00] VITALS: BP 102/58
[2020-02-13 08:11] LABS: POTASSIUM 2.7 MMOL/L (3.5-5.1)
--- NOTE | 2020-02-13 08:36 | NUR ---
NURSE NOTES: RN called Dr Jensen OFFICE LEFT MASSAGE REGARDING k 2.7 AND OTHER LAB RESULTS, WAITING TO CALL BACK. WILL CONTINUE TO MONITOR.
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
[2020-02-13] MEDS: Ascorbic Acid 500mg tab ORAL SCH ×2 (09:27→17:34)
[2020-02-13] MEDS: Enoxaparin 40mg Inj SUBQ SCH (09:27)
[2020-02-13] MEDS: Zinc Sulfate 220mg cap ORAL SCH (09:27)
[2020-02-13] MEDS: Dakin's 0.125% Soln (Quarter Strength) 16oz TOPIC SCH (09:28)
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
--- NOTE | 2020-02-13 10:33 | NUR ---
NURSE NOTES: covid-19 and gentamicin specimen collected with RN and sent to lab, waiting for result. will continue to monitor.
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
[2020-02-13 12:00] VITALS: BP 104/68
--- NOTE | 2020-02-13 12:08 | NUR ---
CASE MANAGEMENT:REVIEW 02/13/20 SI: SEPSIS. COVID 19 PNA. MRSA BACTEREMIA. E COLI UTI. STAGE IV DECUB ULCER 96.7 61 20 102/58 100% ON 2L/NC H/H-8.8/28.2 K-2.7 IS: IV VANCOMYCIN Q8HRS IV GENTAMICIN Q24 IVF+KCL @100/HR MVI PO QD ZINC PO QD VIT C PO BID K-DUR PO BID LOVENOX SQ QD IV KCL X1 : TELEMETRY STATUS DCP: FROM [facility] PLAN: REPEAT COVID 19 SWAB TODAY DISCHARGE PLANNING IN PROCESS
--- NOTE | 2020-02-13 13:02 | NUR ---
NURSE NOTES: RN called Dr Jensen office regarding bradycardia HR 43 and junctional waiting to call back. will continue to monitor.
--- NOTE | 2020-02-13 13:42 | NUR ---
*-* INSURANCE *-* UPDATED AVAILABLE CLINICALS HAVE BEEN FAXED TO: TASHA FARFANM:SUNDEEP #[phone] ext [phone]
[2020-02-13 16:00] VITALS: BP 107/75
--- NOTE | 2020-02-13 18:22 | NUR ---
NURSE NOTES: pt given bed bath, wound treatment done as order, colostomy care done and bag changed and pt tolerated well. will continue to monitor.
--- NOTE | 2020-02-13 19:17 | NUR ---
HAND-OFF: Report given to GULSHAN COSTA. Pt is stable, V/S stable.
[2020-02-13 20:00] VITALS: BP 96/54
--- NOTE | 2020-02-13 20:22 | NUR ---
NURSE NOTES: Received patient in bed, awake, alert/oriented x4, able to verbalize his needs, PICC line site is clean dry and intact, no acute distress noted, call light is within reach, bed is lowered, locked, alarm is on, will continue to monitor for comfort and safety.
[2020-02-13] MEDS: Dyna-Hex 2% Top Sol 2oz TOPIC SCH (20:59)
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
[2020-02-13] MEDS: Zolpidem 5mg tab ORAL PRN (22:10)
[2020-02-13] MEDS: Doxycycline Monohydrate 100mg ORAL SCH (22:10)
[2020-02-14] VITALS: BP 109/63
[2020-02-14] MEDS: HYDROmorphone 1mg/ml Carpuject IVP PRN ×5 (02:14→20:21)
[2020-02-14 04:00] VITALS: BP 101/69
[2020-02-14 05:24] LABS: BASOPHILS % (AUTO) 0.6 % (0.0-2.0); EOSINOPHILS % (AUTO) 2.5 % (0.0-3.0); HEMATOCRIT 27.4 % (42.0-52.0); HEMOGLOBIN 8.5 G/DL (14.2-18.0); MEAN CORPUSCULAR VOLUME 75 FL (80-99); MONOCYTES % (AUTO) 8.4 % (1.0-10.0); NEUTROPHILS % (AUTO) 65.5 % (45.0-75.0); PLATELET COUNT 451 K/UL (150-450); RED BLOOD COUNT 3.66 M/UL (4.70-6.10); RED CELL DISTRIBUTION WIDTH 18.4 % (11.6-14.8); WHITE BLOOD COUNT 9.4 K/UL (4.8-10.8)
[2020-02-14 06:11] LABS: ANION GAP 11 mmol/L (5-15); BLOOD UREA NITROGEN 5 mg/dL (7-18); CALCIUM 8.2 MG/DL (8.5-10.1); CARBON DIOXIDE 27 MMOL/L (21-32); CHLORIDE 104 MMOL/L (98-107); CREATININE 1.2 MG/DL (0.55-1.30); POTASSIUM 2.8 MMOL/L (3.5-5.1); SODIUM 142 MMOL/L (136-145)
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
[2020-02-14] MEDS: Enoxaparin 40mg Inj SUBQ SCH (09:00)
[2020-02-14] MEDS: Ascorbic Acid 500mg tab ORAL SCH ×2 (09:00→17:15)
[2020-02-14] MEDS: Zinc Sulfate 220mg cap ORAL SCH (09:00)
[2020-02-14] MEDS: Dakin's 0.125% Soln (Quarter Strength) 16oz TOPIC SCH (09:00)
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
[2020-02-14] MEDS ORDERED: AMBIEN5 MG ORAL (10:06)
[2020-02-14] MEDS ORDERED: ATIVAN1 MG ORAL (10:06)
[2020-02-14] MEDS ORDERED: NALOXONE H0.4 MG/12 IVP (10:06)
[2020-02-14] MEDS ORDERED: LEXAPRO10 MG ORAL (10:06)
[2020-02-14] MEDS ORDERED: MIRTAZAPINE15 M3 ORAL (10:06)
[2020-02-14] MEDS ORDERED: DOXYCYCLINE MO100 MG ORAL (10:06)
[2020-02-14] MEDS ORDERED: NEURONTIN300 MG ORAL (10:06)
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
[2020-02-14] MEDS: Doxycycline Monohydrate 100mg ORAL SCH (10:10)
--- NOTE | 2020-02-14 10:34 | NUR ---
DISCHARGE PLANNING DISCHARGE ORDER NOTED
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
[2020-02-14 12:00] VITALS: BP 115/67
--- NOTE | 2020-02-14 12:04 | NUR ---
*-* INSURANCE *-* UPDATED AVAILABLE CLINICALS HAVE BEEN FAXED TO: TASHA FARFANM:SUNDEEP #[phone] ext [phone]
--- NOTE | 2020-02-14 12:50 | Cardiac Electrophysiology PN ---
Subjective Subjective [id number] Objective Last 24 Hour Vital Signs Date Time Temp Pulse Resp B/P (MAP) Pulse Ox O2 Delivery O2 Flow Rate FiO2 02/14/20 12:00 99.1 75 18 115/67 (83) 98 02/14/20 11:29 99.1 02/14/20 09:00 Nasal Cannula 2.0 02/14/20 08:00 74 02/14/20 04:00 97.4 69 18 101/69 (80) 96 02/14/20 04:00 59 02/14/20 00:00 98.7 87 17 109/63 (78) 97 02/14/20 00:00 73 02/13/20 21:46 Nasal Cannula 2.0 02/13/20 20:00 71 02/13/20 20:00 98.9 82 18 96/54 (68) 97 02/13/20 16:00 96.8 67 20 107/75 (86) 98 02/13/20 15:41 59 Intake and Output 02/13/20 02/14/20 19:00 07:00 Intake Total 1990.0 ml 360 ml Output Total 1400 ml 600 ml Balance 590.0 ml -240 ml Intake Oral 140 ml 360 ml IV Total 1850.0 ml Output Urine Total 1400 ml 600 ml # Voids 3 1 Laboratory Tests Test 02/14/20 04:00 White Blood Count 9.4 K/UL (4.8-10.8) Red Blood Count 3.66 M/UL (4.70-6.10) L Hemoglobin 8.5 G/DL (14.2-18.0) L Hematocrit 27.4 % (42.0-52.0) L Mean Corpuscular Volume 75 FL (80-99) L Mean Corpuscular Hemoglobin 23.3 PG (27.0-31.0) L Mean Corpuscular Hemoglobin Concent 31.1 G/DL (32.0-36.0) L Red Cell Distribution Width 18.4 % (11.6-14.8) H Platelet Count 451 K/UL (150-450) H Mean Platelet Volume 5.3 FL (6.5-10.1) L Neutrophils (%) (Auto) 65.5 % (45.0-75.0) Lymphocytes (%) (Auto) 23.0 % (20.0-45.0) Monocytes (%) (Auto) 8.4 % (1.0-10.0) Eosinophils (%) (Auto) 2.5 % (0.0-3.0) Basophils (%) (Auto) 0.6 % (0.0-2.0) Sodium Level 142 MMOL/L (136-145) Potassium Level 2.8 MMOL/L (3.5-5.1) L Chloride Level 104 MMOL/L (98-107) Carbon Dioxide Level 27 MMOL/L (21-32) Anion Gap 11 mmol/L (5-15) Blood Urea Nitrogen 5 mg/dL (7-18) L Creatinine 1.2 MG/DL (0.55-1.30) Estimat Glomerular Filtration Rate > 60 mL/min (>60) Glucose Level 101 MG/DL (74-106) Calcium Level 8.2 MG/DL (8.5-10.1) L Troponin I 0.010 ng/mL (0.000-0.056) Thyroid Stimulating Hormone (TSH) 1.971 uiU/mL (0.358-3.740) Free Thyroxine 0.93 NG/DL (0.76-1.46) Neymar Perdomo MD February 14, 2020 12:50
--- NOTE | 2020-02-14 13:44 | NUR ---
NURSE NOTES: Gave report to Nicole at [facility]. They're asking for repeat potassium
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
[2020-02-14 15:59] LABS: POTASSIUM 2.7 MMOL/L (3.5-5.1)
[2020-02-14 16:00] VITALS: BP 105/62
[2020-02-14] MEDS: Acetaminophen 500mg (ES) tab ORAL PRN (16:19)
--- NOTE | 2020-02-14 19:16 | NUR ---
NURSE NOTES: Received pt and report from GULSHAN Jefferson. Observed pt resting in bed with both eyes open and on his cell phone. Pt is A/Ox4. 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 Discharge package and education given by deborah GAFFNEY. Report given to Nicole at [facility]. Bed is in the lowest position and locked. Call light and bedside table is within reach. No signs/symptoms of acute distress noted at this time. Will continue plan of care until pt gets discharge.
--- NOTE | 2020-02-14 19:25 | NUR ---
NURSE NOTES: Pt recvd 80 meq K PO + 20meq of K IVPB, repeat K at 1900, awaiting new lab level. Per dr Sam, ok to still continue with [facility]. I s/w Nicole at [facility] to give report, she is aware pt is returning to facility. Wound dressing were changed and photographed. DC wound pics uploaded. Endorsed to Joana GAFFNEY
--- NOTE | 2020-02-14 19:55 | NUR ---
NURSE NOTES: Potassium level result came back at 3.4, [facility] and continue discharge.
--- NOTE | 2020-02-14 20:00 | NUR ---
NURSE NOTES: Contacted [facility]. ETA for arrival per [facility] personnel will be at 2100.
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
--- NOTE | 2020-02-14 22:59 | NUR ---
NURSE NOTES: Pt discharge to [facility] at 2233 with [facility] unit #[id number]. Pt transferred to [facility] without and incident. Report given to [facility] personnel, Radah Hardwick. Belongings list checked and signed. Pt's belongings left with pt. cardiac monitor removed. SANTA PICC Line removed; pressure applied, no bleeding noted, applied gauze and tape. Pt in stable condition.
== END 2020-02-14 22:33 | DRG 720 ==
LOC: EDBD 20:46 → EDUNIT# 20:46 → EMR 21:15 → 2E 22:06 → EDBEDREQ 01-25 00:21 → 2E 01-28 14:59
PROC: B548ZZA Ultrasonography of Superior Vena Cava, Guidance (ICD-10-PCS; 2020-01-29)
PROC: 02HV33Z Insertion of Infusion Device into Superior Vena Cava, Percutaneous Approach (ICD-10-PCS; 2020-01-29)
PROC: 02HV33Z Insertion of Infusion Device into Superior Vena Cava, Percutaneous Approach (ICD-10-PCS; principal; 2020-02-05)
DX: A41.89 Other specified sepsis (principal); U07.1 COVID-19; N39.0 Urinary tract infection, site not specified; L89.154 Pressure ulcer of sacral region, stage 4; E46 Unspecified protein-calorie malnutrition; Z68.35 Body mass index [BMI] 35.0-35.9, adult; G82.20 Paraplegia, unspecified; J12.89 Other viral pneumonia; Y95 Nosocomial condition; D64.9 Anemia, unspecified; G40.909 Epilepsy, unspecified, not intractable, without status epilepticus; T14.8XXS Other injury of unspecified body region, sequela; Z93.3 Colostomy status; Z74.01 Bed confinement status; L60.2 Onychogryphosis; F32.9 Major depressive disorder, single episode, unspecified; F41.9 Anxiety disorder, unspecified; F60.2 Antisocial personality disorder; E87.6 Hypokalemia; G89.4 Chronic pain syndrome; N48.9 Disorder of penis, unspecified; G47.00 Insomnia, unspecified; R19.7 Diarrhea, unspecified
CPT/HCPCS: 36415; 36569; 70360; 71045; 76937; 80048; 80053; 80150; 80170; 80202; 81003; 82150; 82550; 82962; 83605; 83690; 83735; 83880; 84100; 84132; 84439; 84443; 84484; 85007; 85025; 85651; 86140; 87040; 87081; 87086; 87181; 87324; 87635; 93005; 93306; 96365; 96366; 96368; 96375; 99285; J7030; J8499

== ENCOUNTER 2020-02-16 13:18 | Inpatient (IN) | payer OTHER ==
[~2020-02-16] VITALS: Ht 177.8 cm; Wt 68.2 kg
[~2020-02-16 13:18] MED LIST changes: +AMBIEN5 MG ORAL; +ATIVAN1 MG ORAL; +DILAUDID 44 MG/1 M3 PO; +DOXYCYCLINE MO100 MG ORAL; +LEXAPRO10 MG ORAL; +MIRTAZAPINE15 M3 ORAL; +NALOXONE H0.4 MG/12 IVP; +NEURONTIN300 MG ORAL; +TYLENOL EXTRA500 MG ORAL; +VENTOLIN HFA18 GM INH
[2020-02-16 13:20] VITALS: BP 96/51
--- NOTE | 2020-02-16 13:20 | NUR ---
ED Nurse Note: Pt arrived with ambulance from [facility]. pt c/o generalized body aches x 2 days, accompanied with nausea and vomiting. pt has multiple pressure ulcers on buttocks, left toe knuckles, and perineal area. pt dudley cathere replaced, iv site established, blood specimen sent to lab. pt is paraplegic on lower extremities. pt is aox4 on room air. pt has left lower quadrant wound s/p gtube removal. pt is covid +
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
--- NOTE | 2020-02-16 14:20 | NUR ---
ED Nurse Note: pt is febrile at triage, no respiratory symptoms noted.
[2020-02-16 14:21] LABS: HEMATOCRIT 24.9 % (42.0-52.0); HEMOGLOBIN 7.8 G/DL (14.2-18.0); MEAN CORPUSCULAR VOLUME 76 FL (80-99); PLATELET COUNT 377 K/UL (150-450); RED BLOOD COUNT 3.29 M/UL (4.70-6.10); RED CELL DISTRIBUTION WIDTH 18.8 % (11.6-14.8); WHITE BLOOD COUNT 11.4 K/UL (4.8-10.8)
[2020-02-16] MEDS ORDERED: Sodium Chloride 4,100 ML IVLG ONE (14:30)
[2020-02-16 14:45] LABS: ALANINE AMINOTRANSFERASE 26 U/L (12-78); ALBUMIN 2.7 G/DL (3.4-5.0); ALBUMIN/GLOBULIN RATIO 0.5 (1.0-2.7); ALKALINE PHOSPHATASE 126 U/L (46-116); ANION GAP 14 mmol/L (5-15); ASPARTATE AMINO TRANSFERASE 34 U/L (15-37); BILIRUBIN,TOTAL 0.2 MG/DL (0.2-1.0); BLOOD UREA NITROGEN 9 mg/dL (7-18); CALCIUM 8.4 MG/DL (8.5-10.1); CARBON DIOXIDE 26 MMOL/L (21-32); CHLORIDE 99 MMOL/L (98-107); CREATININE 1.6 MG/DL (0.55-1.30); POTASSIUM 2.8 MMOL/L (3.5-5.1); SODIUM 139 MMOL/L (136-145)
--- NOTE | 2020-02-16 14:47 | NUR ---
ED Nurse Note: ER WCP uploaded
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
[2020-02-16 14:55] LABS: CKMB 0.5 NG/ML (0.0-3.6)
[2020-02-16 15:16] VITALS: BP 90/67
[2020-02-16] MEDS ORDERED: HYDROmorphone 1mg/ml Carpuject IVP ONE (15:30)
--- NOTE | 2020-02-16 15:30 | NUR ---
ED Nurse Note: lactic acid reflex sent to lab
[2020-02-16 16:00] VITALS: BP 97/53
[2020-02-16] MEDS ORDERED: Albuterol 90mcg Inhaler 8gm INH PRN ×2 (16:00→23:00)
[2020-02-16] MEDS ORDERED: Zolpidem 5mg tab ORAL PRN (16:00)
[2020-02-16] MEDS ORDERED: Metoclopramide 10mg/2ml Inj IVP PRN ×2 (16:00→22:00)
[2020-02-16] MEDS ORDERED: Milk of Magnesia 30ml Ud ORAL PRN ×2 (16:00→23:00)
[2020-02-16] MEDS ORDERED: Miralax 17gm pkt ORAL PRN ×2 (16:00→23:00)
[2020-02-16] MEDS ORDERED: LORazepam 1mg tab ORAL PRN (16:00)
[2020-02-16] MEDS ORDERED: oxyCODONE HCL/Acetaminophen 5/325mg ORAL PRN ×2 (16:00→23:00)
[2020-02-16] MEDS ORDERED: Doxycycline Monohydrate 100mg ORAL SCH (16:00)
[2020-02-16] MEDS ORDERED: Naloxone 0.4mg/ml Inj IVP PRN ×2 (16:00→21:15)
[2020-02-16] MEDS ORDERED: HYDROmorphone 1mg/ml Carpuject IVP PRN ×2 (16:15→23:00)
--- NOTE | 2020-02-16 17:30 | NUR ---
NURSE NOTES: Received patient in bed. Awake, A/O x4. On room air. Patient has 8/10 pain. Will contact MD for pain medication. F/C in place. IV intact. Belongings list verified.
--- NOTE | 2020-02-16 17:52 | NUR ---
NURSE NOTES: PO percocet refused. Returtned to martine.
--- NOTE | 2020-02-16 17:57 | Consultation ---
History of Present Illness General Chief Complaint: Vomiting Reason for Consultation: VILLA, nausea, emess Present Illness HPI Patient is a 25 YO M with paraplegia, history of ESBL UTI, chronic sacral decubitus ulcers and COVID-19 infection, MRSA bacteremia presenting with chief complaint of persistent nausea and vomiting. Patient was recently admitted at [facility] for management of complicated UTI, MRSA bacteremia and COVID 19 infection. He received antibiotics treatment (14 days of vancomycin) and was discharged to SNF on 02/13 with 14 days of Doxycycline. Patient states that approximately 24 hours after his hospital discharge, he began to experience severe symptoms of nausea and vomiting. He complains of poor PO intake and multiple episodes of non -bloody emesis. Patient also complains of crampy abdominal pain. Denies any diarrhea, constipation, melena or hematochezia. Patient denies any near-syncope , syncope, cp, sob, fever, chills. On presentation he was found to have, serum K : 2.8 and serum Cr-: 1.6. Allergies: Coded Allergies: CEPHALEXIN (Verified Allergy, Unknown, 06/28/17) FISH DERIVED (Unverified Allergy, Unknown, 08/29/19) MORPHINE (Verified Allergy, Unknown, 06/28/17) Medication History Scheduled Albuterol Sulfate (Ventolin Hfa), 2 PUFFS INH EVERY 6 HOURS, (Reported) Ascorbic Acid* (Vitamin C*), 500 MG ORAL DAILY, (Reported) Baclofen* (Baclofen*), 10 MG ORAL THREE TIMES A DAY, (Reported) Doxycycline Monohydrate* (Doxycycline Monohydrate*), 100 MG ORAL Q12H Enoxaparin* (Lovenox*), 40 MG SUBQ DAILY, (Reported) Escitalopram Oxalate* (Lexapro*), 10 MG ORAL DAILY Gabapentin (Neurontin), 900 MG ORAL TID Mirtazapine* (Mirtazapine*), 7.5 MG ORAL BEDTIME Scheduled PRN Acetaminophen* (Tylenol Extra Strength*), 500 MG ORAL Q6H PRN for Mild Pain/ Temp > 100.5, (Reported) Lorazepam* (Ativan*), 1 MG ORAL Q12H PRN Naloxone Hcl (Naloxone Hcl*), 0.2 MG IVP Q2M PRN Oxycodone/Acetaminophen 5-325* (Percocet 5-325 Mg Tablet*), 1 TAB ORAL Q4H PRN for For Pain, (Reported) Zolpidem Tartrate* (Ambien*), 5 MG ORAL HSPRN PRN Miscellaneous Medications Hydromorphone HCl/Pf (Dilaudid 4 mg/ml Syringe), 4 MG PO, (Reported) Discontinued Medications Baclofen* (Baclofen*), 10 MG ORAL THREE TIMES A DAY, (Reported) Discontinued Reason: MD discontinued med Enoxaparin* (Lovenox*), 40 MG SUBQ DAILY, (Reported) Discontinued Reason: MD discontinued med Patient History Healthcare decision maker Resuscitation status Advanced Directive on File Review of Systems All Other Systems: negative except mentioned in HPI Physical Exam General Appearance: WD/WN, no apparent distress Lines, tubes and drains: peripheral HEENT: normocephalic, atraumatic Neck: non-tender Respiratory/Chest: chest wall non-tender, lungs clear, normal breath sounds Cardiovascular/Chest: normal peripheral pulses Abdomen: normal bowel sounds, hypoactive bowel sounds Neurologic: alert, oriented x 3 Last 24 Hour Vital Signs Date Time Temp Pulse Resp B/P (MAP) Pulse Ox O2 Delivery O2 Flow Rate FiO2 02/16/20 16:39 Room Air 02/16/20 16:20 98.9 73 15 109/65 100 Room Air 02/16/20 15:56 98.9 02/16/20 15:16 98.9 69 13 90/67 100 Room Air 02/16/20 13:20 98.8 83 18 96/51 100 Room Air 02/16/20 13:20 83 18 Room Air 02/16/20 13:19 98.8 103 20 118/78 (91) 98 Room Air Laboratory Tests Test 02/16/20 14:00 02/16/20 15:25 White Blood Count 11.4 K/UL (4.8-10.8) H Red Blood Count 3.29 M/UL (4.70-6.10) L Hemoglobin 7.8 G/DL (14.2-18.0) L Hematocrit 24.9 % (42.0-52.0) L Mean Corpuscular Volume 76 FL (80-99) L Mean Corpuscular Hemoglobin 23.6 PG (27.0-31.0) L Mean Corpuscular Hemoglobin Concent 31.2 G/DL (32.0-36.0) L Red Cell Distribution Width 18.8 % (11.6-14.8) H Platelet Count 377 K/UL (150-450) Mean Platelet Volume 5.5 FL (6.5-10.1) L Neutrophils (%) (Auto) % (45.0-75.0) Lymphocytes (%) (Auto) % (20.0-45.0) Monocytes (%) (Auto) % (1.0-10.0) Eosinophils (%) (Auto) % (0.0-3.0) Basophils (%) (Auto) % (0.0-2.0) Differential Total Cells Counted 100 Neutrophils % (Manual) 80 % (45-75) H Lymphocytes % (Manual) 16 % (20-45) L Monocytes % (Manual) 4 % (1-10) Eosinophils % (Manual) 0 % (0-3) Basophils % (Manual) 0 % (0-2) Band Neutrophils 0 % (0-8) Platelet Estimate Adequate Platelet Morphology Normal Hypochromasia 1+ Anisocytosis 1+ Microcytosis 1+ Sodium Level 139 MMOL/L (136-145) Potassium Level 2.8 MMOL/L (3.5-5.1) L Chloride Level 99 MMOL/L (98-107) Carbon Dioxide Level 26 MMOL/L (21-32) Anion Gap 14 mmol/L (5-15) Blood Urea Nitrogen 9 mg/dL (7-18) Creatinine 1.6 MG/DL (0.55-1.30) H Estimat Glomerular Filtration Rate 54.3 mL/min (>60) Glucose Level 98 MG/DL (74-106) Lactic Acid Level 2.10 mmol/L (0.4-2.0) H 1.20 mmol/L (0.66-2.22) Calcium Level 8.4 MG/DL (8.5-10.1) L Total Bilirubin 0.2 MG/DL (0.2-1.0) Aspartate Amino Transf (AST/SGOT) 34 U/L (15-37) Alanine Aminotransferase (ALT/SGPT) 26 U/L (12-78) Alkaline Phosphatase 126 U/L (46-116) H Total Creatine Kinase 39 U/L (26-308) Creatine Kinase MB 0.5 NG/ML (0.0-3.6) Creatine Kinase MB Relative Index 1.2 Troponin I 0.000 ng/mL (0.000-0.056) Total Protein 8.6 G/DL (6.4-8.2) H Albumin 2.7 G/DL (3.4-5.0) L Globulin 5.9 g/dL Albumin/Globulin Ratio 0.5 (1.0-2.7) L Lipase 91 U/L (73-393) Height (Feet): 5 Height (Inches): 10.00 Weight (Pounds): 300 Medications Current Medications Medications (Trade) Dose Ordered Sig/Pedro Route PRN Reason Start Time Stop Time Status Last Admin Dose Admin Acetaminophen (Tylenol) 650 mg Q4H PRN ORAL Mild Pain (Pain Scale 1-3) 02/16/20 16:00 03/17/20 15:59 Acetaminophen (Tylenol) 650 mg Q4H PRN ORAL Temp >100.5 02/16/20 16:00 03/17/20 15:59 Albuterol Sulfate (Proventil MDI) 1 puff EVERY 6 HOURS PRN INH Shortness of Breath 02/16/20 16:00 05/16/20 15:59 Ascorbic Acid (Vitamin C) 500 mg DAILY ORAL 02/17/20 09:00 03/18/20 08:59 Baclofen (Lioresal) 10 mg THREE TIMES A DAY ORAL 02/16/20 18:00 03/17/20 17:59 02/16/20 17:38 Bisacodyl (Dulcolax) 10 mg DAILYPRN PRN RECTAL Constipation 02/16/20 16:00 05/16/20 15:59 Dextrose (Dextrose 50%) 25 ml Q30M PRN IV Hypoglycemia 02/16/20 16:00 05/16/20 15:59 Dextrose (Dextrose 50%) 50 ml Q30M PRN IV Hypoglycemia 02/16/20 16:00 05/16/20 15:59 Docusate Sodium (Colace) 100 mg EVERY 12 HOURS ORAL 02/16/20 21:00 03/17/20 20:59 Doxycycline Monohydrate (Doxycycline Monohydrate) 100 mg Q12H ORAL 02/16/20 16:00 02/23/20 15:59 02/16/20 17:38 Escitalopram Oxalate (Lexapro) 10 mg DAILY ORAL 02/17/20 09:00 03/18/20 08:59 Gabapentin (Neurontin) 900 mg TID ORAL 02/16/20 18:00 03/17/20 17:59 02/16/20 17:38 Heparin Sodium (Porcine) (Heparin 5000 units/ml) 5,000 units EVERY 12 HOURS SUBQ 02/16/20 21:00 04/01/20 20:59 Hydromorphone HCl (Dilaudid) 1 mg Q4H PRN IVP Severe Pain (Pain Scale 7-10) 02/16/20 16:15 02/23/20 16:14 Lorazepam (Ativan) 1 mg Q12H PRN ORAL For Anxiety 02/16/20 16:00 02/23/20 15:59 Magnesium Hydroxide (Mom) 30 ml HSPRN PRN ORAL Constipation 02/16/20 16:00 03/17/20 15:59 Metoclopramide HCl (Reglan) 10 mg Q6H PRN IVP Nausea & Vomiting 02/16/20 16:00 03/17/20 15:59 Mirtazapine (Remeron) 7.5 mg BEDTIME ORAL 02/16/20 21:00 05/16/20 20:59 Naloxone HCl (Narcan) 0.2 mg Q2M PRN IVP Repeat X1 If Not Effective 02/16/20 16:00 05/16/20 15:59 Ondansetron HCl (Zofran) 4 mg Q6H PRN IVP Nausea & Vomiting 02/16/20 16:00 03/17/20 15:59 02/16/20 17:38 Oxycodone/ Acetaminophen (Percocet 5-325) 1 tab Q4H PRN ORAL For Pain 02/16/20 16:00 02/23/20 15:59 Polyethylene Glycol (Miralax) 17 gm DAILYPRN PRN ORAL Constipation 02/16/20 16:00 03/17/20 15:59 Potassium Chloride/Sodium Chloride 1,000 ml @ 75 mls/hr [id number] IV 02/16/20 18:00 03/17/20 17:59 Potassium Chloride (K-Dur) 40 meq ONCE ORAL 02/16/20 17:30 02/16/20 19:00 02/16/20 17:38 Zolpidem Tartrate (Ambien) 5 mg HSPRN PRN ORAL Insomnia 02/16/20 16:00 02/23/20 15:59 Assessment/Plan Diagnosis [facility]: #VILLA #nausea, emesis, dehydration #Hypokalemia due to poor oral intake #anemia #lactic acidosis #paraplegia #h/o ESBL UTI, #chronic sacral decubitus ulcers #recent COVID-19 infection, MRSA bacteremia - continue with IVF with KCl - potassium supplemetation - antiemetics - GI eval - monitor UOP - strict I&Os - avoid nephrotoxins - monitor CBC - check iron panel Time spent 70 min > 50% on care coordination and counseling Esau Ryan M.D. February 16, 2020 17:57
[2020-02-16] MEDS ORDERED: NS w/KCl 40mEq 1,000 ML IV SCH (18:00)
--- NOTE | 2020-02-16 19:49 | NUR ---
HAND-OFF: Report given to Saray GAFFNEY. Addendum: 02/16/20 at 1949 by Ryan Henderson RN HAND-OFF: Report given to Jarocho GAFFNEY.
--- NOTE | 2020-02-16 19:52 | NUR ---
NURSE NOTES: Pt. received from GULSHAN Davis. Pt. AAOx4, on room air, breathing even and unlabored, no complaints of pain at this time. IV right AC20g, intact and patent, and IV noted right upper arm saline locked. Mackay intact and draining yellow urine well. Bed is low and locked, side rails x3 up, bed alarm active, and call light is in reach. Will continue to monitor.
[2020-02-16] MEDS: Docusate 100mg cap ORAL SCH ×2 (20:04→21:00)
--- NOTE | 2020-02-16 20:57 | NUR ---
HAND-OFF: Report given to GULSHAN France. Pt. transfered to [facility], stable on room air, belongings checked and verified.
[2020-02-16 21:00] VITALS: BP 96/54
[2020-02-16] MEDS ORDERED: Heparin 5000 units/ml inj SUBQ SCH (21:00)
--- NOTE | 2020-02-16 21:00 | NUR ---
NURSE NOTES: Pt. received from GULSHAN Avendaño. Pt. AAOx4, on room air, breathing even and unlabored, no complaints of pain at this time. IV right AC20g, intact and patent. Colostomy LLQ, draining, brown output. Mackay intact and draining yellow urine well. Bed is low and locked, side rails x3 up, bed alarm active, and call light is in reach. Will continue to monitor.
[2020-02-16] MEDS: NS w/KCl 40mEq 1,000 ML IV SCH (21:52)
[2020-02-16] MEDS: HYDROmorphone 1mg/ml Carpuject IVP PRN (22:10)
--- NOTE | 2020-02-16 22:47 | NUR ---
NURSE NOTES: Spoke with Dr Abebe from Dr Jensen's group, informed physician that patient's hemoglobin is 7.8 and that type and cross has been done. did not give orders for transfusion at this time. He asked regarding patient's recent previous laboratory values in February and I informed him that patient's last hemoglobin was 8.5. Informed Dr that there is currently no consult on case for hematology for anemia. He said he does not want a consult at this time and said he will be coming to see the patient in a couple of hours. Informed Dr that patient's potassium is 2.8 and that there was only a one time dose of 40 mEq given. Pt also is on NS c 40 mEq KCL at 75 ml/h. Dr ordered to start a one time dose of 40 mEq x 2 doses to begin 02/16 at 0900. Lab values are ordered for the morning and Dr will look at results of lab values in the morning 02/16 to give further orders. Will wait for Dr to see patient 02/16 in the am.
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
[2020-02-17] VITALS: BP 116/69
[2020-02-17] MEDS: HYDROmorphone 1mg/ml Carpuject IVP PRN ×6 (02:07→22:07)
[2020-02-17 04:00] VITALS: BP 101/54
[2020-02-17] MEDS: NS w/KCl 40mEq 1,000 ML IV SCH ×3 (06:17→18:52)
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
[2020-02-17 08:00] VITALS: BP 103/58
--- NOTE | 2020-02-17 08:00 | NUR ---
NURSE NOTES: Received report from GULSHAN Galaviz. Observed pt sleeping, no s/sx of acute distress. IV site patent and asymptomatic, running IVF at goal. Bed on lowest position, call light within reach. Will continue plan of care.
--- NOTE | 2020-02-17 08:12 | NUR ---
HAND-OFF: Report given to GULSHAN Thapa
[2020-02-17] MEDS: Docusate 100mg cap ORAL SCH ×3 (09:00→21:00)
[2020-02-17] MEDS: Heparin 5000 units/ml inj SUBQ SCH ×3 (09:00→21:00)
[2020-02-17] MEDS ORDERED: Ascorbic Acid 500mg tab ORAL SCH (09:00)
[2020-02-17] MEDS ORDERED: Doxycycline Monohydrate 100mg ORAL SCH (09:00)
[2020-02-17] MEDS: Ascorbic Acid 500mg tab ORAL SCH (09:36)
--- NOTE | 2020-02-17 10:07 | NUR ---
NURSE NOTES: Tried to get blood sample to the pt as ordered, pt refused saying that "I'm a hard stick, call the lab if you want to get sample. Call them after you give my pain medicine". Will let the lab know. Addendum: 02/17/20 at 1047 by Candice Hall RN Per director of labor relations, the pt refused this AM as well.
[2020-02-17] MEDS ORDERED: Vancomycin 1.5gm/NS Premix q24h IVPB SCH (11:00)
[2020-02-17 12:00] VITALS: BP 104/62
--- NOTE | 2020-02-17 12:57 | NUR ---
NURSE NOTES: Pt threatens that he will remove the IV potassium if he will not get "regular" diet. Pt currently on clear liquid diet due to his admitting dx.
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
[2020-02-17 16:00] VITALS: BP 121/67
--- NOTE | 2020-02-17 16:13 | Diagnostic Imaging Report ---
EXAM: XR Abdomen, 2 Views CLINICAL HISTORY: VOMITING TECHNIQUE: Frontal view of the abdomen/pelvis with upright view of the abdomen. COMPARISON: None FINDINGS: Hardware: None. Abdomen: Nonobstructive bowel gas pattern. No free air. Bones: Normal. Soft tissues: Normal. Lower chest: Normal. Other: Evaluation of the pelvis is limited by underpenetration. IMPRESSION: No definite acute abnormality.
[2020-02-17 16:47] LABS: BASOPHILS % (AUTO) 1.2 % (0.0-2.0); EOSINOPHILS % (AUTO) 4.9 % (0.0-3.0); HEMATOCRIT 29.5 % (42.0-52.0); HEMOGLOBIN 8.6 G/DL (14.2-18.0); LYMPHOCYTES % (AUTO) 32.4 % (20.0-45.0); MEAN CORPUSCULAR VOLUME 79 FL (80-99); MONOCYTES % (AUTO) 6.2 % (1.0-10.0); NEUTROPHILS % (AUTO) 55.3 % (45.0-75.0); PLATELET COUNT 369 K/UL (150-450); RED BLOOD COUNT 3.74 M/UL (4.70-6.10); RED CELL DISTRIBUTION WIDTH 20.7 % (11.6-14.8); WHITE BLOOD COUNT 7.9 K/UL (4.8-10.8)
[2020-02-17 16:56] LABS: ANION GAP 14 mmol/L (5-15); BLOOD UREA NITROGEN 6 mg/dL (7-18); CALCIUM 7.5 MG/DL (8.5-10.1); CARBON DIOXIDE 25 MMOL/L (21-32); CHLORIDE 105 MMOL/L (98-107); CREATININE 1.3 MG/DL (0.55-1.30); POTASSIUM 3.1 MMOL/L (3.5-5.1); SODIUM 143 MMOL/L (136-145)
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
[2020-02-17 17:01] LABS: ALANINE AMINOTRANSFERASE 22 U/L (12-78); ALBUMIN 2.3 G/DL (3.4-5.0); ALBUMIN/GLOBULIN RATIO 0.5 (1.0-2.7); ALKALINE PHOSPHATASE 104 U/L (46-116); ASPARTATE AMINO TRANSFERASE 17 U/L (15-37); BILIRUBIN,TOTAL 0.2 MG/DL (0.2-1.0); PHOSPHORUS 4.6 MG/DL (2.5-4.9)
--- NOTE | 2020-02-17 19:23 | NUR ---
HAND-OFF: Report given to GULSHAN Wong. Pt in stable condition, endorsed plan of care.
--- NOTE | 2020-02-17 19:52 | NUR ---
NURSE NOTES: Received pt from GULSHAN Harvey. Pt awake, alert, and talkative. Bed in lowest position. Call light within reach. Will continue to monitor.
[2020-02-17 20:00] VITALS: BP 105/61
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
--- NOTE | 2020-02-17 20:59 | Nephrology Progress Note ---
Assessment/Plan Plan #VILLA #nausea, emesis, dehydration #Hypokalemia due to poor oral intake #anemia #lactic acidosis #paraplegia #h/o ESBL UTI, #chronic sacral decubitus ulcers #recent COVID-19 infection, MRSA bacteremia - continue with IVF with KCl - potassium supplemetation - antiemetics - GI eval - monitor UOP - strict I&Os - avoid nephrotoxins - monitor CBC - check iron panel Time spent 70 min > 50% on care coordination and counseling Subjective ROS Limited/Unobtainable: No Constitutional: Denies: no symptoms, chills, diaphoresis, fever, malaise, weakness, other HEENT: Denies: no symptoms, eye pain, blurred vision, tearing, double vision, ear pain, ear discharge, nose pain, nose congestion, throat pain, throat swelling, mouth pain, mouth swelling, other Genitourinary: Denies: no symptoms, burning, discharge, frequency, flank pain, hematuria, incontinence, pain, urgency, other Neurologic/Psychiatric: Denies: no symptoms, anxiety, depressed, emotional problems, headache, numbness, paresthesia, pre-existing deficit, seizure, tingling, tremors, weakness, other Subjective nausea and abdominal pain improved still hypokalemia renal function improving Objective Objective Last 24 Hour Vital Signs Date Time Temp Pulse Resp B/P (MAP) Pulse Ox O2 Delivery O2 Flow Rate FiO2 02/17/20 16:00 97.0 67 20 121/67 (85) 97 02/17/20 15:59 65 02/17/20 12:00 98.1 70 18 104/62 (76) 99 02/17/20 11:48 64 02/17/20 09:00 Room Air 02/17/20 08:00 97.9 80 18 103/58 (73) 96 02/17/20 07:53 72 02/17/20 04:00 97.8 74 20 101/54 (70) 98 02/17/20 04:00 70 02/17/20 00:00 67 02/17/20 00:00 98.9 86 18 116/69 (85) 98 02/16/20 22:40 98.9 02/16/20 21:00 97.6 73 18 96/54 (68) 98 02/16/20 21:00 Room Air Intake and Output 02/16/20 02/17/20 18:59 06:59 Intake Total 4300 ml Output Total 300 ml 500 ml Balance 4000 ml -500 ml Intake Oral 200 ml IV Total 4100 ml Output Urine Total 300 ml 500 ml # Bowel Movements 2 Laboratory Tests 02/17/20 09:45: Urine Opiates Screen Negative, Urine Barbiturates Screen Negative, Phencyclidine (PCP) Screen Negative, Urine Amphetamines Screen Negative, Urine Benzodiazepines Screen Negative, Urine Cocaine Screen Negative, Urine Marijuana (THC) Screen Negative 02/17/20 15:00: Stool Occult Blood [Pending] 02/17/20 16:15: White Blood Count 7.9, Red Blood Count 3.74L, Hemoglobin 8.6L, Hematocrit 29.5L , Mean Corpuscular Volume 79L, Mean Corpuscular Hemoglobin 22.9L, Mean Corpuscular Hemoglobin Concent 29.0L, Red Cell Distribution Width 20.7H, Platelet Count 369, Mean Platelet Volume 6.4L, Neutrophils (%) (Auto) 55.3, Lymphocytes (%) (Auto) 32.4, Monocytes (%) (Auto) 6.2, Eosinophils (%) (Auto) 4.9H, Basophils (%) (Auto) 1.2, Sodium Level 143, Potassium Level 3.1L, Chloride Level 105, Carbon Dioxide Level 25, Anion Gap 14, Blood Urea Nitrogen 6L, Creatinine 1.3, Estimat Glomerular Filtration Rate > 60, Glucose Level 93, Calcium Level 7.5L, Phosphorus Level 4.6, Magnesium Level 1.2L, Total Bilirubin 0.2, Aspartate Amino Transf (AST/SGOT) 17, Alanine Aminotransferase (ALT/SGPT) 22, Alkaline Phosphatase 104, Total Protein 7.4, Albumin 2.3L, Globulin 5.1, Albumin/Globulin Ratio 0.5L Height (Feet): 5 Height (Inches): 10.00 Weight (Pounds): 300 Objective General Appearance: WD/WN, no apparent distress Lines, tubes and drains: peripheral HEENT: normocephalic, atraumatic Neck: non-tender Respiratory/Chest: chest wall non-tender, lungs clear, normal breath sounds Cardiovascular/Chest: normal peripheral pulses Abdomen: normal bowel sounds, hypoactive bowel sounds Neurologic: alert, oriented x 3 Esau Ryan M.D. February 17, 2020 20:59
[2020-02-18] VITALS: BP 105/57
[2020-02-18] MEDS: LORazepam 1mg tab ORAL PRN ×2 (00:28→20:40)
[2020-02-18] MEDS: NS w/KCl 40mEq 1,000 ML IV SCH ×2 (01:01→15:36)
[2020-02-18] MEDS: HYDROmorphone 1mg/ml Carpuject IVP PRN ×6 (02:28→23:58)
[2020-02-18 03:56] VITALS: BP 110/63
[2020-02-18 08:00] VITALS: BP 120/64
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
--- NOTE | 2020-02-18 08:30 | NUR ---
NURSE NOTES: Received report from Judith Gill, Patient sitting HOB at 45 degrees, alert to name, on 2 liters nasal cannula, colostomy in place, Mackay catheter in place, pain treated with dilaudid, [id number], bed in lowest position, call light within reach, in no apparent distress, IV patent in right forearm 18 gauge running NS+40KCL at 100 cc/hour.
--- NOTE | 2020-02-18 08:40 | NUR ---
HAND-OFF: Report given to GULSHAN DOHERTY. PT STABLE.
[2020-02-18] MEDS: Docusate 100mg cap ORAL SCH ×2 (09:00→20:40)
[2020-02-18] MEDS: Heparin 5000 units/ml inj SUBQ SCH ×2 (09:00→20:41)
[2020-02-18] MEDS: Ascorbic Acid 500mg tab ORAL SCH (09:01)
[2020-02-18 12:00] VITALS: BP 123/74
--- NOTE | 2020-02-18 12:09 | Nephrology Progress Note ---
Assessment/Plan Plan #VILLA #nausea, emesis, dehydration #Hypokalemia due to poor oral intake #anemia #lactic acidosis #paraplegia #h/o ESBL UTI, #chronic sacral decubitus ulcers #recent COVID-19 infection, MRSA bacteremia - continue with IVF with KCl - potassium supplemetation - antiemetics - GI eval - monitor UOP - strict I&Os - avoid nephrotoxins - monitor CBC - check iron panel Time spent 70 min > 50% on care coordination and counseling Subjective ROS Limited/Unobtainable: No Constitutional: Denies: no symptoms, chills, diaphoresis, fever, malaise, weakness, other HEENT: Denies: no symptoms, eye pain, blurred vision, tearing, double vision, ear pain, ear discharge, nose pain, nose congestion, throat pain, throat swelling, mouth pain, mouth swelling, other Genitourinary: Denies: no symptoms, burning, discharge, frequency, flank pain, hematuria, incontinence, pain, urgency, other Neurologic/Psychiatric: Denies: no symptoms, anxiety, depressed, emotional problems, headache, numbness, paresthesia, pre-existing deficit, seizure, tingling, tremors, weakness, other Subjective nausea and abdominal pain improved still hypokalemia renal function improving Objective Objective Last 24 Hour Vital Signs Date Time Temp Pulse Resp B/P (MAP) Pulse Ox O2 Delivery O2 Flow Rate FiO2 02/18/20 11:34 95.6 02/18/20 08:00 95.6 79 20 120/64 (82) 100 02/18/20 04:00 79 02/18/20 03:56 96.5 84 20 110/63 (79) 100 02/18/20 00:00 68 02/18/20 00:00 96.8 86 20 105/57 (73) 100 02/17/20 21:00 Room Air 02/17/20 20:00 69 02/17/20 20:00 96.5 72 20 105/61 (76) 100 02/17/20 16:00 97.0 67 20 121/67 (85) 97 02/17/20 15:59 65 Intake and Output 02/17/20 02/18/20 19:00 07:00 Intake Total 1068 ml Balance 1068 ml Intake Oral 1068 ml Laboratory Tests 02/17/20 15:00: Stool Occult Blood [Pending] 02/17/20 16:15: White Blood Count 7.9, Red Blood Count 3.74L, Hemoglobin 8.6L, Hematocrit 29.5L , Mean Corpuscular Volume 79L, Mean Corpuscular Hemoglobin 22.9L, Mean Corpuscular Hemoglobin Concent 29.0L, Red Cell Distribution Width 20.7H, Platelet Count 369, Mean Platelet Volume 6.4L, Neutrophils (%) (Auto) 55.3, Lymphocytes (%) (Auto) 32.4, Monocytes (%) (Auto) 6.2, Eosinophils (%) (Auto) 4.9H, Basophils (%) (Auto) 1.2, Sodium Level 143, Potassium Level 3.1L, Chloride Level 105, Carbon Dioxide Level 25, Anion Gap 14, Blood Urea Nitrogen 6L, Creatinine 1.3, Estimat Glomerular Filtration Rate > 60, Glucose Level 93, Calcium Level 7.5L, Phosphorus Level 4.6, Magnesium Level 1.2L, Total Bilirubin 0.2, Aspartate Amino Transf (AST/SGOT) 17, Alanine Aminotransferase (ALT/SGPT) 22, Alkaline Phosphatase 104, Total Protein 7.4, Albumin 2.3L, Globulin 5.1, Albumin/Globulin Ratio 0.5L Height (Feet): 5 Height (Inches): 10.00 Weight (Pounds): 300 Objective General Appearance: WD/WN, no apparent distress Lines, tubes and drains: peripheral HEENT: normocephalic, atraumatic Neck: non-tender Respiratory/Chest: chest wall non-tender, lungs clear, normal breath sounds Cardiovascular/Chest: normal peripheral pulses Abdomen: normal bowel sounds, hypoactive bowel sounds Neurologic: alert, oriented x 3 Esau Ryan M.D. February 18, 2020 12:09
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
--- NOTE | 2020-02-18 13:53 | NUR ---
NURSE NOTES: Pressure relief, low air loss mattress placed in room, patient asked that we place it on the bed later, after his next pain medication given.
[2020-02-18 16:00] VITALS: BP 115/74
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
[2020-02-18 20:00] VITALS: BP 135/77
--- NOTE | 2020-02-18 20:13 | NUR ---
HAND-OFF: Report given to Garret Mckeon RN. Patient sitting up in bed, awake and alert, watching television, pain treated with Diluadid IVP, 18 gauge IV patent in right forearm, on 2 liters nasal cannula, soft care mattress at bedside, patient refused to have placed earlier in the day, will reoffer, bed in lowest position, call light within reach, no SOB.
--- NOTE | 2020-02-18 20:15 | NUR ---
NURSE NOTES: Got report from Leroy RN. Pt in stable condition. Denies any pain. Denies any n/v or SOB. No s/s of distress or discomfort noted. Pt resting in bed comfortably. Bed in low and locked position, call light within reach, bedside table within reach. Continue to monitor.
[2020-02-18] MEDS: Zolpidem 5mg tab ORAL PRN (21:26)
[2020-02-18] MEDS: NS w/KCl 20mEq 1000ml 1,000 ML IV SCH (21:36)
[2020-02-19] VITALS: BP 133/68
[2020-02-19 04:00] VITALS: BP 137/77
[2020-02-19] MEDS: HYDROmorphone 1mg/ml Carpuject IVP PRN ×3 (05:02→14:32)
--- NOTE | 2020-02-19 07:25 | NUR ---
HAND-OFF: Report given to Peg GAFFNEY.
--- NOTE | 2020-02-19 07:30 | NUR ---
NURSE NOTES: Received report from GULSHAN Combs. The patient is resting on the bed but refusing majority of medical care. The patient is AOx4, verbal, and able to make needs known. The patient's bed in the lowest position, call light in reach, and fall and aspiration precaution reinforced. The patient is on 2L NC per order. The patient's stoma for colostomy clean and skin intact and new colostomy bag applied. Mackay intact and draining by gravity. Skin issue noted including unstageable sacral pressure ulcer, but the patient is refusing to be on P200 air matress. R FA 18G peripheral IV intact and patent and running IVF per order. Will follow up the lab. Will continue plan of care.
[2020-02-19 08:00] VITALS: BP 126/58
--- NOTE | 2020-02-19 08:30 | NUR ---
NURSE NOTES: Notified Dr. Jensen regarding the patient's refusal of the lab draw. Education provided regarding risk and benefit of refusal of the medical care. Will closely monitor the patient. Will continue plan of care.
[2020-02-19] MEDS: Heparin 5000 units/ml inj SUBQ SCH ×2 (09:00→21:00)
[2020-02-19] MEDS: Docusate 100mg cap ORAL SCH ×2 (09:51→21:00)
[2020-02-19] MEDS: Ascorbic Acid 500mg tab ORAL SCH (09:52)
[2020-02-19] MEDS: NS w/KCl 20mEq 1000ml 1,000 ML IV SCH ×2 (09:56→21:11)
--- NOTE | 2020-02-19 10:00 | NUR ---
NURSE NOTES: Morning medication administered as ordered. The patient refused Heparin SC shot. Will continue plan of care.
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
--- NOTE | 2020-02-19 10:30 | NUR ---
NURSE NOTES: Dilaudid PRN administered for severe pain. Will closely monitor the patient. Will continue plan of care.
[2020-02-19 12:00] VITALS: BP 124/72
--- NOTE | 2020-02-19 12:00 | NUR ---
NURSE NOTES: The patient refused vital signs to be done. Education provided regarding risk and benefit of refusal of medical care. Notified to Dr. Goel. Will closely monitor the patient. Will continue plan of care.
--- NOTE | 2020-02-19 12:22 | Nephrology Progress Note ---
Assessment/Plan Plan #VILLA #nausea, emesis, dehydration #Hypokalemia due to poor oral intake #anemia #lactic acidosis #paraplegia #h/o ESBL UTI, #chronic sacral decubitus ulcers #recent COVID-19 infection, MRSA bacteremia - continue with IVF with KCl - potassium supplemetation - antiemetics - GI eval - monitor UOP - strict I&Os - avoid nephrotoxins - monitor CBC - check iron panel Time spent 70 min > 50% on care coordination and counseling Subjective ROS Limited/Unobtainable: No Constitutional: Denies: no symptoms, chills, diaphoresis, fever, malaise, weakness, other HEENT: Denies: no symptoms, eye pain, blurred vision, tearing, double vision, ear pain, ear discharge, nose pain, nose congestion, throat pain, throat swelling, mouth pain, mouth swelling, other Genitourinary: Denies: no symptoms, burning, discharge, frequency, flank pain, hematuria, incontinence, pain, urgency, other Neurologic/Psychiatric: Denies: no symptoms, anxiety, depressed, emotional problems, headache, numbness, paresthesia, pre-existing deficit, seizure, tingling, tremors, weakness, other Subjective nausea and abdominal pain improved still hypokalemia renal function improving Objective Objective Last 24 Hour Vital Signs Date Time Temp Pulse Resp B/P (MAP) Pulse Ox O2 Delivery O2 Flow Rate FiO2 02/19/20 08:00 76 02/19/20 05:39 98.8 02/19/20 04:00 83 02/19/20 04:00 98.8 90 18 137/77 (97) 100 02/19/20 00:00 94 02/19/20 00:00 99.0 86 19 133/68 (89) 100 02/18/20 21:09 98.1 02/18/20 21:00 Room Air 02/18/20 20:00 100.0 94 20 135/77 (96) 100 02/18/20 20:00 84 02/18/20 16:00 98.1 87 20 115/74 (88) 100 02/18/20 16:00 83 Intake and Output 02/18/20 02/19/20 19:00 07:00 Intake Total 380 ml Output Total 3200 ml 2875 ml Balance -2820 ml -2875 ml Intake Oral 140 ml IV Total 240 ml Output Urine Total 3200 ml 2875 ml # Voids 3 Height (Feet): 5 Height (Inches): 10.00 Weight (Pounds): 300 Objective General Appearance: WD/WN, no apparent distress Lines, tubes and drains: peripheral HEENT: normocephalic, atraumatic Neck: non-tender Respiratory/Chest: chest wall non-tender, lungs clear, normal breath sounds Cardiovascular/Chest: normal peripheral pulses Abdomen: normal bowel sounds, hypoactive bowel sounds Neurologic: alert, oriented x 3 Esau Ryan M.D. February 19, 2020 12:22
--- NOTE | 2020-02-19 13:15 | NUR ---
NURSE NOTES: The patient refused to take 1300 medication and 20mEq KCL one time dose. Notified to Dr. Sharma. No new order at this time. Will closely monitor the patient. Will continue plan of care.
--- NOTE | 2020-02-19 13:30 | NUR ---
NURSE NOTES: Bed bath given. Sacral dressing changed per order. The patient is still uncooperative in medical care. Will closely monitor the patient. Will continue plan of care.
--- NOTE | 2020-02-19 14:00 | NUR ---
HAND-OFF: Report given to GULSHAN Saeed. The patient is stable at this time. Endorsed plan of care.
--- NOTE | 2020-02-19 14:05 | NUR ---
NURSE NOTES: Received report from Peg/RN, Patient awake and alert, Lying semi-kay's, watching TV at this time. No acute distress/SOB noted. IV on right FA, patent, NS W/20mEq KCL running at 75cc/hr. Mackay draining well to gravity. Bed in low position and locked, Call light within reach, Will continue plan of care.
--- NOTE | 2020-02-19 14:36 | NUR ---
CASE MANAGEMENT:REVIEW 02/16/20 24 YR OLD MALE BIBA FROM [facility] CC: VOMITING. DEHYDRATION PMH: COVID 19 POSITIVE SI: COVID 19. ANEMIA. VILLA 98.8 103 20 109/65 98% ON RA WBC+11.4 H/H-7.8/24.9 K-2.8 IS: IV ZOFRAN 1L NS BOLUS IV DILAUDID X1 CHEST XRAY BLOOD CX : TO TELEMETRY UNIT
--- NOTE | 2020-02-19 14:43 | NUR ---
CASE MANAGEMENT:REVIEW 02/19/20 SI: COVID POSITIVE. BACTEREMIA INTRACTABLE VOMITING. HYPOKALEMIA 98.8 90 18 137/77 100% ON RA IS: IVF+KCL@75/HR LACTULOSE PO BID REMERON PO QHS VIT C PO QD BACLOFEN PO TID NEURONTIN PO TID HEPARIN SQ Q12 : TELEMETRY STATUS DCP: FROM [facility] PLAN: CLEAR LIQUIDS
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
[2020-02-19] MEDS ORDERED: oxyCODONE 5mg IR tab ORAL PRN (15:15)
[2020-02-19 16:00] VITALS: BP 122/81
--- NOTE | 2020-02-19 16:39 | NUR ---
*-* INSURANCE *-* ALL CLINICALS AND REVIEWS HAVE BEEN FAXED TO: [facility]#[phone] FAX#[phone] REVIEWS/CLINICALS
[2020-02-19] MEDS ORDERED: Lactulose 20gm/30ml UDC ORAL SCH (18:00)
[2020-02-19] MEDS ORDERED: DAPTOmycin 700 MG in NS 55 ML IV SCH (18:00)
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
--- NOTE | 2020-02-19 18:40 | NUR ---
NURSE NOTES: Patient refused his IV fluid and IV antibiotics.
--- NOTE | 2020-02-19 18:50 | NUR ---
NURSE NOTES: Wound care done, All dressing changed. Patient tolerated well.
[2020-02-19] MEDS: oxyCODONE 5mg IR tab ORAL PRN ×2 (18:56→23:03)
--- NOTE | 2020-02-19 19:31 | NUR ---
HAND-OFF: Report given to Judith/GULSHAN. Endorsed plan of care.
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
--- NOTE | 2020-02-19 19:50 | NUR ---
NURSE NOTES: rECEIVED PT FROM GULSHAN MONTANO. PT AWAKE, ALERT, AND TALKATIVE. BED IN LOWEST POSITION. CALL LIGHT WITHIN REACH. PT REFUSING EVERYTHING AND IS UPSET ABOUT THE CHANGE FROM DILAUDID TO OXYCODONE. WILL CONTINUE TO MONITOR.
[2020-02-19] MEDS: Zolpidem 5mg tab ORAL PRN (21:11)
[2020-02-19] MEDS: LORazepam 1mg tab ORAL PRN (23:03)
--- NOTE | 2020-02-20 02:56 | NUR ---
HAND-OFF: Report given to GULSHAN COSTA. PT STABLE.
--- NOTE | 2020-02-20 02:58 | NUR ---
NURSE NOTES: Received patient from telemetry floor,report is given by Judith GAFFNEY. Patient is awake, alert, oriented x4, able to make his needs known, on room air, no acute distress noted, IV site is clean dry and intact, patient has a Mackay catheter, secured, draining well. Call light is within reach, bed is lowered, locked, alarm is on, will continue to monitor for comfort and safety.
--- NOTE | 2020-02-20 03:15 | NUR ---
NURSE NOTES: patient has refused wound pictures to be taken, stated that they were taken the other day, RN explained that [place] [facility] must be taken upon [place], patient verbalized refusal, CN was made aware.
[2020-02-20] MEDS: NS w/KCl 20mEq 1000ml 1,000 ML IV SCH ×2 (03:30→18:04)
[2020-02-20] MEDS ORDERED: Naloxone 0.4mg/ml Inj IVP PRN (03:30)
[2020-02-20] MEDS ORDERED: Miralax 17gm pkt ORAL PRN (04:00)
[2020-02-20] MEDS ORDERED: Albuterol 90mcg Inhaler 8gm INH PRN (04:00)
[2020-02-20] MEDS ORDERED: oxyCODONE 5mg IR tab ORAL PRN (04:00)
--- NOTE | 2020-02-20 06:12 | NUR ---
Patient refused am labs, will relay this to am shift.
--- NOTE | 2020-02-20 07:22 | NUR ---
HAND-OFF: Report given to Julissa GAFFNEY.
--- NOTE | 2020-02-20 07:35 | NUR ---
NURSE NOTES: Received patient lying in hospital bed on p200 mattress. Patient is AAO x 4, bedbound d/t paraplegia, but able help himself repositioning and make needs known. Patient is satting 96% on RA with no s/s of distress noted at this time. Per patient he has 8/10 pain located on his sacral wounds and would like his IV dilaudid for pain management which has already been DC'd. MD made aware of pt's request. Patient is on a regular diet. Patient has a colostomy and dudley catheter in place. Patient has multiple wounds with various staging on sacrum with dressing changed on 02/18 per RN report. RN offered patient oxycodone for pain management and he agreed. Will continue POC.
[2020-02-20 08:00] VITALS: BP 120/79
--- NOTE | 2020-02-20 08:50 | NUR ---
NURSE NOTES: Dr. Goel made round and RN notified to Dr. Goel that patient refused blood draw,wound care photos and IVF.MD is aware and patient requested for IV pain med for chronic body pain to Dr. Goel and he will check.Explained to the patient that he has oxycodone IR PRN. Will continue to monitor.
[2020-02-20] MEDS: Lactulose 20gm/30ml UDC ORAL SCH ×3 (09:00→18:00)
[2020-02-20] MEDS: Docusate 100mg cap ORAL SCH ×3 (09:00→21:00)
[2020-02-20] MEDS: Heparin 5000 units/ml inj SUBQ SCH ×2 (09:00→21:00)
[2020-02-20] MEDS: Ascorbic Acid 500mg tab ORAL SCH (09:18)
[2020-02-20] MEDS: oxyCODONE 5mg IR tab ORAL PRN ×3 (09:20→22:55)
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
--- NOTE | 2020-02-20 09:38 | NUR ---
NURSE NOTES: Patient refused heparin SQ, colace, lexapro, and lactulose. Patient asked RN if he could have dilaudid IVP for pre-medication prior to wound dressing change today which he prefers to be done between 1-2 PM. MD notified. Awaiting response. Will continue to f/u.
--- NOTE | 2020-02-20 10:44 | NUR ---
NURSE NOTES: Received new order for Dilaudid IVP 1 mg for patient's pain management for sacral wound dressing changes daily
--- NOTE | 2020-02-20 11:25 | NUR ---
*-* INSURANCE *-* UPDATED CLINICALS AND REVIEWS HAVE BEEN FAXED TO: TASHA VOGEL #[phone] FAX#[phone] REVIEWS/CLINICALS Addendum: 02/20/20 at 1200 by SHILA CARDENAS CM [facility]AS[facility] Vogel Ref#[id number] #[phone] fax#[phone]
--- NOTE | 2020-02-20 12:17 | NUR ---
RD ASSESSMENT & RECOMMENDATIONS SEE CARE ACTIVITY FOR COMPLETE ASSESSMENT DAILY ESTIMATED NEEDS: Needs based on paraplegia, wound, sepsis, obese 95.6kg adj 20-25 kcals/kg 6164-4830 total kcals 1.25-2 g protein/kg 120-191 g total protein 25-30 mL/kg 6590-8821 total fluid mLs NUTRITION DIAGNOSIS: 1) Increase Kcal and protein needs r/t wound healing as evidenced by pt w/ multiple full thickness wounds, refer to WC eval. 2) Altered GI function r/t colostomy as evidenced by h/o paraplegia with colostomy. CURRENT DIET: Regular PO DIET RECOMMENDATIONS: Regular (no corn, beans, fried foods, seafood per SNF record) ADDITIONAL RECOMMENDATIONS: 1) Per SNF last adm: 6'2" and 271# 2) Wound care: Add MVI w/ min x 1, continue Vit C Jorge 1pkt BID 3) Monitor PO intake- variable PO at this time . . .
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
--- NOTE | 2020-02-20 13:37 | Nephrology Progress Note ---
Assessment/Plan Plan #VILLA #nausea, emesis, dehydration #Hypokalemia due to poor oral intake #anemia #lactic acidosis #paraplegia #h/o ESBL UTI, #chronic sacral decubitus ulcers #recent COVID-19 infection, MRSA bacteremia - refusing blood draw - antiemetics - GI eval - monitor UOP - strict I&Os - avoid nephrotoxins - monitor CBC -DC planning Time spent 70 min > 50% on care coordination and counseling Subjective ROS Limited/Unobtainable: No Constitutional: Denies: no symptoms, chills, diaphoresis, fever, malaise, weakness, other HEENT: Denies: no symptoms, eye pain, blurred vision, tearing, double vision, ear pain, ear discharge, nose pain, nose congestion, throat pain, throat swelling, mouth pain, mouth swelling, other Genitourinary: Denies: no symptoms, burning, discharge, frequency, flank pain, hematuria, incontinence, pain, urgency, other Neurologic/Psychiatric: Denies: no symptoms, anxiety, depressed, emotional problems, headache, numbness, paresthesia, pre-existing deficit, seizure, tingling, tremors, weakness, other Subjective Refusing blood draw nausea and abdominal pain improved Objective Objective Last 24 Hour Vital Signs Date Time Temp Pulse Resp B/P (MAP) Pulse Ox O2 Delivery O2 Flow Rate FiO2 02/20/20 09:00 Nasal Cannula 2.0 02/20/20 08:00 98.6 82 18 120/79 (93) 96 02/19/20 21:00 Nasal Cannula 2.0 02/19/20 16:00 90 02/19/20 16:00 98.3 79 18 122/81 (95) 95 Intake and Output 02/19/20 02/20/20 19:00 07:00 Intake Total 440 ml Output Total 1200 ml Balance -760 ml Intake Oral 440 ml Output Urine Total 1200 ml Height (Feet): 5 Height (Inches): 10.00 Weight (Pounds): 300 Objective General Appearance: WD/WN, no apparent distress Lines, tubes and drains: peripheral HEENT: normocephalic, atraumatic Neck: non-tender Respiratory/Chest: chest wall non-tender, lungs clear, normal breath sounds Cardiovascular/Chest: normal peripheral pulses Abdomen: normal bowel sounds, hypoactive bowel sounds Neurologic: alert, oriented x 3 Pirouz,Aslan M.D. February 20, 2020 13:37
[2020-02-20] MEDS: HYDROmorphone 1mg/ml Carpuject IVP SCH (13:44)
[2020-02-20] MEDS ORDERED: Dakin's 0.125% Soln (Quarter Strength) 16oz TOPIC SCH (14:00)
--- NOTE | 2020-02-20 15:30 | NUR ---
NURSE NOTES: Patient is crying and states he feels frustrated with his life. Patient states " I want a sitter, I don't want to live anymore, and I feel like killing myself today." RN provided emotional support. RN asked if patient wants to speak with someone. Patient states he wants to talk to his mother, Alix. Assisted patient in dialing mother's phone number using room phone and gave phone to patient so he can speak with his mother. Provided privacy to patient to speak with mother, Alix. MD notified of situation .
[2020-02-20] MEDS: Dakin's 0.25% (Half Strength) 16oz TOPIC SCH (16:01)
--- NOTE | 2020-02-20 16:10 | NUR ---
NURSE NOTES: Received order for consult with Psych MD, Dr. Negrete. Dr. Negrete notified re consult ordered and confirmed that she will see patient. supervisor roving notified of patient's request for sitter, however, no MD orders received at this time. Will continue to monitor patient for any changes
[2020-02-20] MEDS: LORazepam 1mg tab ORAL PRN (16:11)
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
[2020-02-20] MEDS ORDERED: DAPTOmycin 700 MG in NS 55 ML IV SCH (18:00)
[2020-02-20] MEDS: DAPTOmycin 700 MG in NS 55 ML IV SCH (18:56)
--- NOTE | 2020-02-20 19:20 | NUR ---
HAND-OFF: Report given to GULSHAN So. POC Endorsed.
--- NOTE | 2020-02-20 19:30 | NUR ---
NURSE NOTES: Received patient on bed, awake. with iv line on the right forearm running ns+20 meq at 75ml/hr. dudley catheter in place and colostomy. per areli and hollis, "he has suicidal ideation that he wants to kill himself". they gave ativan. went to the room, per patient " i am depressed, my brother and my mother are not here". " i'm gonna visit jordyn". ensured safety. removed pointed objects. charge nurse made aware. bed locked and in lowest position. call light and light button within easy reach. will continue plan of care
[2020-02-20 20:00] VITALS: BP 101/67
[2020-02-20] MEDS: Zolpidem 5mg tab ORAL PRN (20:07)
--- NOTE | 2020-02-20 20:30 | NUR ---
NURSE NOTES: went to the room and he wants sleeping pill. Ambien given as ordered. patient refused dss and heparin. he only wants to take remeron and ambien. vitals was taken with temp of 100.9F. tylenol 650 mg for fever was given.
[2020-02-20] MEDS ORDERED: Milk of Magnesia 30ml Ud ORAL PRN (21:00)
--- NOTE | 2020-02-20 21:00 | NUR ---
NURSE NOTES: Received a phone call from the mother and made her aware that he's been verbalizing that he wants to kill himself. the mother is aware of it and she wants to talk to him to check him out. patient talk to the patient. per patient "he feels better after talking to her". he eats his dinner. he's more calmer now than during endorsement. temp is 98.6 F, no fever. charge nurse made aware
--- NOTE | 2020-02-20 22:30 | NUR ---
NURSE NOTES: administered pain medicine with c/o pain on the sacrum rated as 9/10. non radiating. charge nurse made aware
--- NOTE | 2020-02-21 | NUR ---
NURSE NOTES: patient refused vitals, he prefers to sleep and don't bother him.
--- NOTE | 2020-02-21 01:00 | NUR ---
NURSE NOTES: noted patient that trying to manipulate the dudley catheter. advised patient not to manipulate it.patient got mad. charge nurse made aware.
[2020-02-21 01:26] VITALS: BP 127/70
--- NOTE | 2020-02-21 03:00 | NUR ---
NURSE NOTES: patient is complaining of pain on the iv access. patient refused to check the patency and he wants to take out the iv and put in a new one. took out the iv. tried to insert an iv. i cannot see any veins. lilia rn and nam rn, tried to put in but unble to look for a vein. charge nurse made aware,
[2020-02-21] MEDS: NS w/KCl 20mEq 1000ml 1,000 ML IV SCH ×2 (06:10→20:07)
--- NOTE | 2020-02-21 06:29 | NUR ---
NURSE NOTES: noted with minimal blood on the penis from the catheter.patient manipulated the catheter which makes it more worse. kept it Addendum: 02/21/20 at 0634 by Amparo Nelson RN kept it clean and dry. catheter has minimal leaking cause he kept on manipulating the catheter. per patient " i'm gonna take this out, i dont care." reiterated patient not to take it out., patient doesn't understands. charge nurse made aware.
--- NOTE | 2020-02-21 06:35 | NUR ---
NURSE NOTES: while i step out of the room to get more towels and went back to the room, noticed patient manipulating the catheter putting gauze around the penis. stopped the patient but he got irritated. charge nurse made aware.
--- NOTE | 2020-02-21 06:56 | NUR ---
NURSE NOTES: dr. bruner made aware regarding the leaking catheter and his behavior of manipulating the catheter by putting gauze on it which causes to have a minimal bleeding. charge nurse made aware. Addendum: 02/21/20 at 0739 by Amparo Nelson RN the phone call for dr. bruner went to [place], left a message.endorsed to the morning to follow up
--- NOTE | 2020-02-21 07:13 | NUR ---
HAND-OFF: Report given to jewels fang endorsed to follow up to md regarding the behavior.
[2020-02-21 07:16] LABS: BASOPHILS % (AUTO) 0.4 % (0.0-2.0); EOSINOPHILS % (AUTO) 3.5 % (0.0-3.0); HEMATOCRIT 28.3 % (42.0-52.0); HEMOGLOBIN 8.8 G/DL (14.2-18.0); LYMPHOCYTES % (AUTO) 24.6 % (20.0-45.0); MEAN CORPUSCULAR VOLUME 74 FL (80-99); MONOCYTES % (AUTO) 8.1 % (1.0-10.0); NEUTROPHILS % (AUTO) 63.5 % (45.0-75.0); PLATELET COUNT 341 K/UL (150-450); RED BLOOD COUNT 3.82 M/UL (4.70-6.10); RED CELL DISTRIBUTION WIDTH 17.9 % (11.6-14.8); WHITE BLOOD COUNT 10.7 K/UL (4.8-10.8)
[2020-02-21 07:41] LABS: ANION GAP 12 mmol/L (5-15); BLOOD UREA NITROGEN 8 mg/dL (7-18); CALCIUM 6.7 MG/DL (8.5-10.1); CARBON DIOXIDE 31 MMOL/L (21-32); CHLORIDE 97 MMOL/L (98-107); CREATININE 1.7 MG/DL (0.55-1.30); SODIUM 140 MMOL/L (136-145)
[2020-02-21 07:52] LABS: POTASSIUM 2.2 MMOL/L (3.5-5.1)
[2020-02-21 08:00] VITALS: BP 103/83
--- NOTE | 2020-02-21 08:02 | NUR ---
patient is in the bed alert and awake. respiration is even and unlabored. denies any pain. denies nausea and vomiting. no acute distress noted at this time. call light within reach.
[2020-02-21] MEDS: Heparin 5000 units/ml inj SUBQ SCH ×2 (09:00→20:55)
[2020-02-21] MEDS: Dakin's 0.25% (Half Strength) 16oz TOPIC SCH (09:00)
[2020-02-21] MEDS: Lactulose 20gm/30ml UDC ORAL SCH ×2 (09:00→18:00)
[2020-02-21] MEDS: Docusate 100mg cap ORAL SCH ×2 (09:00→20:55)
[2020-02-21] MEDS ORDERED: Heparin1,000 units/500ml Premix(Conc:2 units/ml) IV PRN (09:30)
[2020-02-21] MEDS ORDERED: Lidocaine 1% Plain 30 ml INJ PRN (09:30)
[2020-02-21] MEDS: Ascorbic Acid 500mg tab ORAL SCH (09:42)
[2020-02-21] MEDS: oxyCODONE 5mg IR tab ORAL PRN (09:43)
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
--- NOTE | 2020-02-21 10:06 | Nephrology Progress Note ---
Assessment/Plan Plan #VILLA- - worse today #nausea, emesis, dehydration #Hypokalemia due to poor oral intake #anemia #lactic acidosis #paraplegia #h/o ESBL UTI, #chronic sacral decubitus ulcers #recent COVID-19 infection, MRSA bacteremia - kcl 80 meq PO -replete calcium - on daptomycin - antiemetics - GI eval - monitor UOP - strict I&Os - avoid nephrotoxins - monitor CBC -DC planning Time spent 70 min > 50% on care coordination and counseling Subjective ROS Limited/Unobtainable: No Constitutional: Denies: no symptoms, chills, diaphoresis, fever, malaise, weakness, other HEENT: Denies: no symptoms, eye pain, blurred vision, tearing, double vision, ear pain, ear discharge, nose pain, nose congestion, throat pain, throat swelling, mouth pain, mouth swelling, other Genitourinary: Denies: no symptoms, burning, discharge, frequency, flank pain, hematuria, incontinence, pain, urgency, other Neurologic/Psychiatric: Denies: no symptoms, anxiety, depressed, emotional problems, headache, numbness, paresthesia, pre-existing deficit, seizure, tingling, tremors, weakness, other Subjective Labs reviewed K 2.2 cr 1.7 now on dapto nausea and abdominal pain improved Objective Objective Last 24 Hour Vital Signs Date Time Temp Pulse Resp B/P (MAP) Pulse Ox O2 Delivery O2 Flow Rate FiO2 02/21/20 08:00 98.2 89 18 103/83 (90) 98 02/21/20 01:26 98.9 93 20 127/70 (89) 98 02/20/20 21:00 Nasal Cannula 2.0 02/20/20 20:54 98.6 02/20/20 20:00 100.9 97 20 101/67 (78) 95 02/20/20 14:14 98.6 Intake and Output 02/20/20 02/21/20 19:00 07:00 Intake Total 1275 ml 1300 ml Output Total 2500 ml 1500 ml Balance -1225 ml -200 ml Intake Oral 1200 ml 1300 ml IV Total 75 ml Output Urine Total 2500 ml 1500 ml Laboratory Tests 02/21/20 05:05: White Blood Count 10.7, Red Blood Count 3.82L, Hemoglobin 8.8L, Hematocrit 28.3L , Mean Corpuscular Volume 74L, Mean Corpuscular Hemoglobin 23.0L, Mean Corpuscular Hemoglobin Concent 31.0L, Red Cell Distribution Width 17.9H, Platelet Count 341, Mean Platelet Volume 5.2L, Neutrophils (%) (Auto) 63.5, Lymphocytes (%) (Auto) 24.6, Monocytes (%) (Auto) 8.1, Eosinophils (%) (Auto) 3.5H, Basophils (%) (Auto) 0.4, Sodium Level 140, Potassium Level 2.2*L, Chloride Level 97L, Carbon Dioxide Level 31, Anion Gap 12, Blood Urea Nitrogen 8 , Creatinine 1.7H, Estimat Glomerular Filtration Rate 50.7, Glucose Level 94, Calcium Level 6.7L Height (Feet): 5 Height (Inches): 10.00 Weight (Pounds): 150 Objective General Appearance: WD/WN, no apparent distress Lines, tubes and drains: peripheral HEENT: normocephalic, atraumatic Neck: non-tender Respiratory/Chest: chest wall non-tender, lungs clear, normal breath sounds Cardiovascular/Chest: normal peripheral pulses Abdomen: normal bowel sounds, hypoactive bowel sounds Neurologic: alert, oriented x 3 Esau Ryan M.D. February 21, 2020 10:06
--- NOTE | 2020-02-21 10:15 | NUR ---
NURSE NOTES Dr. Ryan was at the unit making his rounds. Notified Dr Ryan that patient's Mackay catheter is leaking, MD says "leave Mackay catheter for now and monitor."
--- NOTE | 2020-02-21 10:58 | NUR ---
MEDIA ANALYTICS MANAGER NOTE S/W JONNY AT [facility] IN RE TO PATIENTS NEED FOR IV ABX DAPTOMYCIN FOR 1 WEEK. REQUEST IF ABX CAN BE CHANGED DUE TO COST. INFORMED DR PALACIO AND DR HALL AND BOTH MD'S AGREE TO NOT CHANGE ABX. JONNY AT [facility] INFORMED. SHE WILL CONSULT WITH TELEHEALTH COORDINATOR AND CALL BACK. JONNY ANTICIPATES PATIENT MAY BE ABLE TO RETURN TO SNF TODAY.
--- NOTE | 2020-02-21 11:55 | NUR ---
CASE MANAGEMENT:REVIEW 02/20/20 SI;STAGE IV DECUB. HYPOKALEMIA. PARAPLEGIA. 100.9 93 20 103/83 95% 2L NC H/H 8.8/28.3 K+ 2.2 CR 1.7 CA 6.7 IS;DAPTOMYCIN IV Q24 HRS DILAUDID IV Q24 HRS LACTULOSE PO BID BACLOFEN PO TID GABAPENTIN PO TID IV KCL/NS @ 75 ML/HR MED SURG STATUS DCP;FROM [facility]
[2020-02-21 12:00] VITALS: BP 122/69
--- NOTE | 2020-02-21 13:49 | NUR ---
*-* INSURANCE *-* UPDATED CLINICALS AND REVIEWS HAVE BEEN FAXED TO: [facility] Ref#[id number] #[phone] fax#[phone]
--- NOTE | 2020-02-21 14:02 | NUR ---
DISCHARGE PLANNING S/W JONNY AT [facility]. CONFIRMED PATIENT ACCEPTED TO RETURN UPON DISCHARGE AND IV ABX WILL BE CONTINUED AT SNF. BED ASSIGNMENT. PICC PLACEMENT SCHEDULED FOR TODAY AFTER 3 PM PER RAVI ODOM. 321-B SKILLED DR PALACIO INFORMED SNF WILL CONTINUE IV ABX UPON RETURN. INFORMED THIS CM HE WILL ANTICIPATE DC TO SNF TOMORROW 02/22/20.
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
--- NOTE | 2020-02-21 15:52 | Pre-Procedure Note/Attestation ---
Pre-Procedure Note/Attestation Complete Prior to Procedure Planned Procedure: not applicable Procedure Narrative: picc line Indications for Procedure Pre-Operative Diagnosis: needs IV access Attestation Informed consent obtained after discussing procedure risks vs benefits with the patient Eloy Sampson M.D. February 21, 2020 15:52
--- NOTE | 2020-02-21 15:56 | Diagnostic Imaging Report ---
Indications: Needs IV access Technique: Procedure performed at bedside. Procedural timeout performed. Total sterile technique, including sterile probe cover and sterile gel, sterile gloves, hand hygiene, hat, mask,, sterile gown, large sterile drape, and preparation with 2% chlorhexidine utilized. Ultrasound demonstrated a patent and compressible right brachial vein. Local anesthesia with 1% lidocaine. Right brachial vein access with a 21-gauge needle under real-time ultrasound guidance, passage of a 0.018 guidewire, exchange for 5 Stateless sheath. 5 Stateless Bard triple-lumen power PICC cut to 40 cm. It was inserted through the peel-away sheath. Peel-away sheath and guidewire removed. Catheter fixed to the skin. Both catheter ports aspirated and flushed. Patient tolerated procedure well, without immediate complication. Followup chest x-ray obtained, documents catheter tip position at the SVC. No fluoroscopy utilized Impression: Successful bedside placement of 5 Stateless triple-lumen PICC line Catheter cleared for use.
[2020-02-21] MEDS: HYDROmorphone 1mg/ml Carpuject IVP SCH (15:59)
[2020-02-21 16:00] VITALS: BP 133/59
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
[2020-02-21] MEDS: DAPTOmycin 700 MG in NS 55 ML IV SCH (18:27)
--- NOTE | 2020-02-21 19:25 | NUR ---
HAND-OFF: Report given to Jarocho.
--- NOTE | 2020-02-21 19:30 | NUR ---
NURSE NOTES: Pt. received from GULSHAN Vera. Pt. AAOx4, on room air, breathing is even and unlabored, no complaints of pain at this time. PICC SANTA intact and patent, dressing CDI. Dudley intact, draining yellow urine; endorsed Dr. Ryan aware of dudley leak, no new orders at this time. Colostomy bag intact with moderate amount of brown contents. Bed is low and locked, side rails x3 up, bed alarm active, and call light in reach. Will continue to monitor.
[2020-02-21 20:00] VITALS: BP 124/93
[2020-02-21] MEDS: Dyna-Hex 2% Top Sol 2oz TOPIC SCH (20:55)
[2020-02-21] MEDS: LORazepam 1mg tab ORAL PRN (20:55)
--- NOTE | 2020-02-21 22:45 | Progress Note ---
DATE: 02/21/2020 SUBJECTIVE: Patient is well known to me from previous admission. The patient was readmitted on . Patient is demanding. Constantly asking the nurse to go in the room. Patient continues to that he is suicidal. I suggested psychiatric hospitalization. He is refusing. He is manipulative and constantly has medication-seeking behavior. MENTAL STATUS EXAMINATION: Patient is alert, oriented times self, place, situation, and date. Mood is dysphoric. Affect is blunted, congruent with mood. Thought process linear and goal oriented. Thought content, no suicidal or homicidal ideation. Cognition is intact. Insight and judgment is fair. ASSESSMENT: 1. Substance use disorder. 2. Depressive disorder. PLAN: 1. Lexapro 10 mg. 2. Remeron 7.5 at bedtime. 3. Patient is not an eminent danger to self or others. When medically cleared, patient should be discharged. Basia Negrete M.D. DR: ISAIAS JOB#: [id number] CC: RENNY
[2020-02-21] MEDS: Zolpidem 5mg tab ORAL PRN (23:17)
[2020-02-22] VITALS: BP 115/57
[2020-02-22] MEDS: oxyCODONE 5mg IR tab ORAL PRN ×3 (02:07→21:48)
[2020-02-22 04:00] VITALS: BP 126/68
[2020-02-22 04:54] LABS: HEMATOCRIT 23.7 % (42.0-52.0); HEMOGLOBIN 7.4 G/DL (14.2-18.0); MEAN CORPUSCULAR VOLUME 74 FL (80-99); PLATELET COUNT 302 K/UL (150-450); RED BLOOD COUNT 3.19 M/UL (4.70-6.10)
[2020-02-22 05:18] LABS: ANION GAP 7 mmol/L (5-15); BLOOD UREA NITROGEN 10 mg/dL (7-18); CALCIUM 7.1 MG/DL (8.5-10.1); CARBON DIOXIDE 34 MMOL/L (21-32); CHLORIDE 98 MMOL/L (98-107); CREATININE 1.6 MG/DL (0.55-1.30); SODIUM 139 MMOL/L (136-145)
[2020-02-22 05:21] LABS: POTASSIUM 2.7 MMOL/L (3.5-5.1)
--- NOTE | 2020-02-22 05:34 | NUR ---
NURSE NOTES: Critical lab received from [facility], Potassium = 2.[address] Jensen, awaiting return call. Will continue to monitor.
[2020-02-22 05:38] LABS: PHOSPHORUS 3.9 MG/DL (2.5-4.9)
[2020-02-22 05:44] LABS: CREATINE KINASE 44 U/L (26-308)
--- NOTE | 2020-02-22 05:45 | NUR ---
NURSE NOTES: Orders received from Dr. Jacobs, will continue with plan of care.
--- NOTE | 2020-02-22 06:15 | NUR ---
NURSE NOTES: Pt. refused PO potassium. Charge nurse aware, will continue to monitor.
[2020-02-22 06:21] LABS: APPEARANCE,URINE SLIGHTLY CLOUDY; BILIRUBIN, URINE NEGATIVE (NEGATIVE); COLOR,URINE PALE YELLOW; GLUCOSE, URINE (UA) NEGATIVE (NEGATIVE); KETONES,URINE NEGATIVE (NEGATIVE); LEUKOCYTE ESTERASE ,URINE 3+ (NEGATIVE); NITRITE,URINE NEGATIVE (NEGATIVE); PH,URINE 8 (4.5-8.0); PROTEIN,URINE NEGATIVE (NEGATIVE); UROBILINOGEN,URINE NORMAL MG/DL (0.0-1.0)
--- NOTE | 2020-02-22 07:31 | NUR ---
HAND-OFF: Report given to GULSHAN Torres.
[2020-02-22 08:00] VITALS: BP 124/69
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
[2020-02-22] MEDS: Heparin 5000 units/ml inj SUBQ SCH ×2 (09:00→21:00)
[2020-02-22] MEDS: Docusate 100mg cap ORAL SCH ×2 (09:00→21:00)
[2020-02-22] MEDS: Lactulose 20gm/30ml UDC ORAL SCH ×2 (09:00→18:00)
[2020-02-22] MEDS: Ascorbic Acid 500mg tab ORAL SCH (09:36)
[2020-02-22] MEDS: Metoclopramide 10mg/2ml Inj IVP PRN (09:41)
[2020-02-22] MEDS: NS w/KCl 20mEq 1000ml 1,000 ML IV SCH ×2 (09:41→20:49)
[2020-02-22] MEDS: HYDROmorphone 1mg/ml Carpuject IVP SCH (09:42)
--- NOTE | 2020-02-22 09:57 | NUR ---
CHARGE NURSE NOTE: H@H .. group was called, message left.
--- NOTE | 2020-02-22 10:04 | NUR ---
CHARGE NURSE NOTE: Spoke with Lindsey regarding low H@H, no order for blood transfusion given.
[2020-02-22] MEDS: Dakin's 0.25% (Half Strength) 16oz TOPIC SCH (10:07)
--- NOTE | 2020-02-22 10:21 | Nephrology Progress Note ---
Assessment/Plan Plan #VILLA- - worse today #nausea, emesis, dehydration #Hypokalemia due to poor oral intake #anemia #lactic acidosis #paraplegia #h/o ESBL UTI, #chronic sacral decubitus ulcers #recent COVID-19 infection, MRSA bacteremia -replete K and mag - monitor renal function - on daptomycin - antiemetics - GI eval - monitor UOP - strict I&Os - avoid nephrotoxins - monitor CBC -DC planning Time spent 70 min > 50% on care coordination and counseling Subjective ROS Limited/Unobtainable: No Constitutional: Denies: no symptoms, chills, diaphoresis, fever, malaise, weakness, other HEENT: Denies: no symptoms, eye pain, blurred vision, tearing, double vision, ear pain, ear discharge, nose pain, nose congestion, throat pain, throat swelling, mouth pain, mouth swelling, other Genitourinary: Denies: no symptoms, burning, discharge, frequency, flank pain, hematuria, incontinence, pain, urgency, other Neurologic/Psychiatric: Denies: no symptoms, anxiety, depressed, emotional problems, headache, numbness, paresthesia, pre-existing deficit, seizure, tingling, tremors, weakness, other Subjective Labs reviewed K and mag low now on dapto nausea and abdominal pain improved Objective Objective Last 24 Hour Vital Signs Date Time Temp Pulse Resp B/P (MAP) Pulse Ox O2 Delivery O2 Flow Rate FiO2 02/22/20 08:00 98.2 69 18 124/69 (87) 97 02/22/20 04:00 98.2 79 18 126/68 (87) 100 02/22/20 00:00 98.8 83 20 115/57 (76) 98 02/21/20 21:00 Room Air 02/21/20 20:00 98.2 95 22 124/93 (103) 100 02/21/20 16:00 97.7 75 18 133/59 (83) 98 02/21/20 12:00 97.3 81 18 122/69 (86) 97 Intake and Output 02/21/20 02/22/20 19:00 07:00 Intake Total 1796 ml 1375 ml Output Total 2400 ml 1700 ml Balance -604 ml -325 ml Intake Oral 1796 ml 1000 ml IV Total 375 ml Output Urine Total 2400 ml 1700 ml Laboratory Tests 02/22/20 04:00: White Blood Count 10.0, Red Blood Count 3.19L, Hemoglobin 7.4L, Hematocrit 23.7L , Mean Corpuscular Volume 74L, Mean Corpuscular Hemoglobin 23.3L, Mean Corpuscular Hemoglobin Concent 31.4L, Red Cell Distribution Width 18.0H, Platelet Count 302, Mean Platelet Volume 5.5L, Neutrophils (%) (Auto) , Lymphocytes (%) (Auto) , Monocytes (%) (Auto) , Eosinophils (%) (Auto) , Basophils (%) (Auto) , Sodium Level 139, Potassium Level 2.7*L, Chloride Level 98, Carbon Dioxide Level 34H, Anion Gap 7, Blood Urea Nitrogen 10, Creatinine 1.6H, Estimat Glomerular Filtration Rate 54.3, Glucose Level 102, Calcium Level 7.1L, Phosphorus Level 3.9, Magnesium Level 1.1L, Total Creatine Kinase 44, Cytomegalovirus DNA Qual (PCR) [Pending] 02/22/20 04:33: Urine Color Pale yellow, Urine Appearance Slightly cloudy, Urine pH 8, Urine Specific [place] 1.010, Urine Protein Negative, Urine Glucose (UA) Negative, Urine Ketones Negative, Urine Blood 2+H, Urine Nitrite Negative, Urine Bilirubin Negative, Urine Urobilinogen Normal, Urine Leukocyte Esterase 3+H, Urine RBC 2-4H, Urine WBC 15-20H, Urine Squamous Epithelial Cells Occasional, Urine Bacteria ModerateH Height (Feet): 5 Height (Inches): 10.00 Weight (Pounds): 150 Objective General Appearance: WD/WN, no apparent distress Lines, tubes and drains: peripheral HEENT: normocephalic, atraumatic Neck: non-tender Respiratory/Chest: chest wall non-tender, lungs clear, normal breath sounds Cardiovascular/Chest: normal peripheral pulses Abdomen: normal bowel sounds, hypoactive bowel sounds Neurologic: alert, oriented x 3 Esau Ryan M.D. February 22, 2020 10:21
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
[2020-02-22] MEDS: Magnesium Oxide 400mg tab ORAL SCH ×2 (12:45→18:00)
--- NOTE | 2020-02-22 12:45 | NUR ---
NURSE NOTES: Noted watery output from colostomy. Notified Dr. Goel, received orders to send stool for cdiff. Stool specimen collected and sent to lab. said no antidiarrheals until cdiff comes back negative. Patient requesting anti-diarrheals. Explained dr's instructions to him and he was upset but verbalized understanding.
--- NOTE | 2020-02-22 12:48 | NUR ---
NURSE NOTES: Patient refused 1pm medications. Offered to patient x3 but patient refused to answer and kept sleeping.
--- NOTE | 2020-02-22 13:48 | NUR ---
NURSE NOTES: MD Dr. Gole notified that patient has been refusing oral potassium and magnesium. is aware. IV supplementation currently ordered.
--- NOTE | 2020-02-22 14:26 | NUR ---
*-* INSURANCE *-* UPDATED CLINICALS AND REVIEWS HAVE BEEN FAXED TO: [facility] Ref#[id number] #[phone] fax#[phone]
[2020-02-22 16:00] VITALS: BP 110/61
--- NOTE | 2020-02-22 16:02 | NUR ---
CASE MANAGEMENT:REVIEW SI;STAGE IV DECUB. HYPOKALEMIA. PARAPLEGIA. VILLA. 98.8 83 20 115/57 97% ON RA H/H 7.4/23.7 K+ 2.7 CR 1.6 CA 7.1 MG 1.1 IS;DAPTOMYCIN IV Q24 HRS DILAUDID IV Q24 HRS LACTULOSE PO BID BACLOFEN PO TID GABAPENTIN PO TID IV KCL/NS @ 75 ML/HR MED SURG STATUS DCP; FROM [facility]
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
[2020-02-22] MEDS ORDERED: DiphenhydrAMINE 50mg/ml Inj IVP SCH (16:15)
[2020-02-22] MEDS: DAPTOmycin 700 MG in NS 55 ML IV SCH (18:38)
--- NOTE | 2020-02-22 18:51 | NUR ---
NURSE NOTES: Patient received a total of 6 bags of IV Potassium and 6 bags of IV Magnesium. Discontinued other duplicate order entries for Magnesium and Potassium. Spoke with pharmacy, re-entered orders for potassium and magnesium so they would be able to retrieve from [facility] machine.
--- NOTE | 2020-02-22 19:16 | NUR ---
HAND-OFF: Report given to Sania Rich RN.
--- NOTE | 2020-02-22 19:30 | NUR ---
NURSE NOTES: Received the patient in bed is alert and verbally responsive. PICC line on the right upper arm intact and patent . The Resp is even and unlabored. The call light within easy reach, The patient refused skin assessment and did not was to turn and re-position, explained risks and benefits but patient still refused. will continue to monitor
[2020-02-22 20:00] VITALS: BP 128/71
[2020-02-22] MEDS: Dyna-Hex 2% Top Sol 2oz TOPIC SCH (20:47)
[2020-02-22] MEDS ORDERED: Zolpidem 5mg tab ORAL PRN (21:00)
[2020-02-22] MEDS: LORazepam 1mg tab ORAL PRN (21:53)
[2020-02-23] VITALS: BP 110/69
[2020-02-23 04:00] VITALS: BP 114/68
--- NOTE | 2020-02-23 06:00 | NUR ---
NURSE NOTES: Patient refused to change the dressing. Explained risk and benefit but still refused.
[2020-02-23] MEDS: oxyCODONE 5mg IR tab ORAL PRN ×3 (06:17→19:51)
--- NOTE | 2020-02-23 06:29 | NUR ---
NURSE NOTES: The patient was resistance to his care and refused the nurse to empty his colostomy bag, he also refused to be turn and reposition q 2hrs.
[2020-02-23 06:58] LABS: ANION GAP 9 mmol/L (5-15); BLOOD UREA NITROGEN 10 mg/dL (7-18); CALCIUM 7.8 MG/DL (8.5-10.1); CARBON DIOXIDE 31 MMOL/L (21-32); CHLORIDE 103 MMOL/L (98-107); CREATININE 1.3 MG/DL (0.55-1.30); SODIUM 142 MMOL/L (136-145)
[2020-02-23 07:05] LABS: POTASSIUM 2.7 MMOL/L (3.5-5.1)
--- NOTE | 2020-02-23 07:15 | NUR ---
NURSE NOTES: Received call from Lab(Dyn) regarding Potassium level 2.7.
[2020-02-23 07:16] LABS: HEMATOCRIT 23.2 % (42.0-52.0); HEMOGLOBIN 7.5 G/DL (14.2-18.0); MEAN CORPUSCULAR VOLUME 73 FL (80-99); PLATELET COUNT 327 K/UL (150-450); RED BLOOD COUNT 3.16 M/UL (4.70-6.10); RED CELL DISTRIBUTION WIDTH 17.9 % (11.6-14.8); WHITE BLOOD COUNT 8.3 K/UL (4.8-10.8)
--- NOTE | 2020-02-23 07:20 | NUR ---
NURSE NOTES: Received patient in bed, Patient awake,alert, orientedx4 verbally responsive. no sign of distress, denies pain or discomfort, on going IVF VIA PICC line on the right upper arm intact and patent, Colostomy is full at this time with liquid output noted, dudley cath to gravity, .on fall and isolation precaution, call light within easy reach, refused skin assessment and did not want to turn and re-position, will continue to monitor jewels salvador
--- NOTE | 2020-02-23 07:32 | NUR ---
NURSE NOTES: Call and left message to Dr. Jensen regarding potassium level 2.7. Waiting a call back.
--- NOTE | 2020-02-23 07:38 | NUR ---
HAND-OFF: Report given to Alix GAFFNEY.
--- NOTE | 2020-02-23 07:45 | NUR ---
NURSE NOTES: Obtained order of total 80meq Kcl Potassium IV from Dr. Goel.
[2020-02-23] MEDS ORDERED: D5W IVPB SCH (08:15)
[2020-02-23] MEDS ORDERED: POTASSIUM CHLORIDE IVPB SCH (08:15)
[2020-02-23] MEDS: Ascorbic Acid 500mg tab ORAL SCH (08:53)
[2020-02-23] MEDS: Magnesium Oxide 400mg tab ORAL SCH ×3 (08:54→17:38)
[2020-02-23] MEDS: Lactulose 20gm/30ml UDC ORAL SCH ×2 (08:57→17:39)
[2020-02-23] MEDS: Docusate 100mg cap ORAL SCH (08:59)
[2020-02-23] MEDS: Metoclopramide 10mg/2ml Inj IVP PRN (08:59)
[2020-02-23] MEDS: Heparin 5000 units/ml inj SUBQ SCH ×2 (08:59→21:00)
[2020-02-23] MEDS: Dakin's 0.25% (Half Strength) 16oz TOPIC SCH ×2 (08:59→13:34)
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
--- NOTE | 2020-02-23 09:47 | NUR ---
*-* INSURANCE *-* UPDATED CLINICALS AND REVIEWS HAVE BEEN FAXED TO: [facility] Ref#[id number] #[phone] fax#[phone]
--- NOTE | 2020-02-23 10:53 | NUR ---
PRODUCTION SUPPORT SPECIALIST NOTE MESSAGE SENT TO DR PALACIO IN RE TO DC PLAN. AWAITING CALL BACK WITH REPLY..
--- NOTE | 2020-02-23 11:12 | Nephrology Progress Note ---
Assessment/Plan Plan #VILLA- - improved #nausea, emesis, dehydration #Hypokalemia due to poor oral intake #anemia #lactic acidosis #paraplegia #h/o ESBL UTI, #chronic sacral decubitus ulcers #recent COVID-19 infection, MRSA bacteremia - K low - refused supplementation yesterday - will give kcl 20 IV now and 80 kcl PO now - monitor renal function - continue kcl 20meq BID on discharge - on daptomycin - antiemetics - GI eval - monitor UOP - strict I&Os - avoid nephrotoxins - monitor CBC -DC planning Time spent 70 min > 50% on care coordination and counseling Subjective ROS Limited/Unobtainable: No Constitutional: Denies: no symptoms, chills, diaphoresis, fever, malaise, weakness, other HEENT: Denies: no symptoms, eye pain, blurred vision, tearing, double vision, ear pain, ear discharge, nose pain, nose congestion, throat pain, throat swelling, mouth pain, mouth swelling, other Genitourinary: Denies: no symptoms, burning, discharge, frequency, flank pain, hematuria, incontinence, pain, urgency, other Neurologic/Psychiatric: Denies: no symptoms, anxiety, depressed, emotional problems, headache, numbness, paresthesia, pre-existing deficit, seizure, tingling, tremors, weakness, other Subjective Labs reviewed K low - refused supplementation yesterday will given 20 IV and 80 PO today now on dapto nausea and abdominal pain improved Objective Objective Last 24 Hour Vital Signs Date Time Temp Pulse Resp B/P (MAP) Pulse Ox O2 Delivery O2 Flow Rate FiO2 02/23/20 09:00 Room Air 02/23/20 04:00 72 18 114/68 (83) 02/23/20 00:00 98.4 70 18 110/69 (83) 97 02/22/20 21:00 Room Air 02/22/20 20:00 98.4 79 18 128/71 (90) 97 02/22/20 16:00 98.0 63 18 110/61 (77) 94 Intake and Output 02/22/20 02/23/20 19:00 07:00 Intake Total 1606 ml 1880 ml Output Total 1350 ml 2550 ml Balance 256 ml -670 ml Intake Oral 956 ml 1000 ml IV Total 650 ml 880 ml Output Urine Total 1350 ml 2550 ml Laboratory Tests 02/23/20 06:22: White Blood Count 8.3, Red Blood Count 3.16L, Hemoglobin 7.5L, Hematocrit 23.2L , Mean Corpuscular Volume 73L, Mean Corpuscular Hemoglobin 23.8L, Mean Corpuscular Hemoglobin Concent 32.5, Red Cell Distribution Width 17.9H, Platelet Count 327, Mean Platelet Volume 5.2L, Neutrophils (%) (Auto) , Lymphocytes (%) (Auto) , Monocytes (%) (Auto) , Eosinophils (%) (Auto) , Basophils (%) (Auto) , Neutrophils % (Manual) [Pending], Lymphocytes % (Manual) [Pending], Platelet Estimate [Pending], Platelet Morphology [Pending], Sodium Level 142, Potassium Level 2.7*L, Chloride Level 103, Carbon Dioxide Level 31, Anion Gap 9, Blood Urea Nitrogen 10, Creatinine 1.3, Estimat Glomerular Filtration Rate > 60, Glucose Level 105, Calcium Level 7.8L, Magnesium Level 1.9 Height (Feet): 5 Height (Inches): 10.00 Weight (Pounds): 150 Objective General Appearance: WD/WN, no apparent distress Lines, tubes and drains: peripheral HEENT: normocephalic, atraumatic Neck: non-tender Respiratory/Chest: chest wall non-tender, lungs clear, normal breath sounds Cardiovascular/Chest: normal peripheral pulses Abdomen: normal bowel sounds, hypoactive bowel sounds Neurologic: alert, oriented x 3 Esau Ryan M.D. February 23, 2020 11:12
[2020-02-23] MEDS: NS w/KCl 20mEq 1000ml 1,000 ML IV SCH (11:24)
[2020-02-23 12:00] VITALS: BP 125/65
--- NOTE | 2020-02-23 12:03 | NUR ---
DISCHARGE PLANNING CALL MADE TO TYLER HERRING @ [phone] IN RE TO BED ASSIGNMENT. PSYCHOLOGIST CHIEF NOT AVAILABLE AT TIME OF CALL. WILL CALL BACK.
[2020-02-23] MEDS: HYDROmorphone 1mg/ml Carpuject IVP SCH (13:01)
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
--- NOTE | 2020-02-23 14:00 | NUR ---
nurse notes at 1301 dilaudid 1 mg given as ordered, patient made aware dressing will be done at 1330 1331 went back to his room , patient stated later , I'm still in pain, explained patient I gave oxycodone 10 mg at 11 am , and stated he is ok after a 30 min , I explained to him dressing needs to be done now , will help him turn on the other side patient stated i can do it, patient able to turn to his right side,dressing all removed wound cleaning done, refused picture taking dressing done on that left side.when we on the right side, me and Marii asked if he can turn more on the side patient patient stated no, stop it, i dont want you guys to continue , leave me alone, explained patient we just a few seconds we are done but still patient refused, left the room , charge nurse aware jewels salvador
[2020-02-23] MEDS ORDERED: Amikacin Rx to dose MISC PRN (14:45)
[2020-02-23] MEDS ORDERED: AMIKACIN S1000 MG/4 IJ (15:03)
[2020-02-23] MEDS ORDERED: LINZESS290 MCG ORAL (15:03)
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
--- NOTE | 2020-02-23 15:53 | NUR ---
*-*DISCHARGE PLANNING*-* PATIENT HAS BEEN REFERRED TO; [facility] P:[phone] FOR NURSE TO NURSE REPORT ROOM# 316 [facility] SET FOR 1600PM [place]OCHITL [id number] S/W PATIENT MOTHER, LACEY ZIEGLER, WHO IS IN AGREEMENT WITH DISCHARGE PLAN Addendum: 02/23/20 at 1607 by BORIS UGARTE CM *-*DISCHARGE PLANNED*-* PATIENT HAS BEEN REFERRED TO: [facility] P:[phone] FOR NURSE TO NURSE REPORT ROOM# 316 [facility] SET FOR 1600PM [place] X8888 S/W PATIENT MOTHER, LACEY ZIEGLER, WHO IS IN AGREEMENT WITH DISCHARGE PLAN
[2020-02-23] MEDS ORDERED: Amikacin 1,000 MG in NS 110 ML IV SCH (16:00)
[2020-02-23 16:31] VITALS: BP 101/53
--- NOTE | 2020-02-23 17:10 | NUR ---
NURSE NOTES Discharge back to SNF obtained , called [facility] gave report to Parker GAFFNEY receiving nurse , per Parker he will notify the DON of SNF regarding the K level, and he will call me back after 10 min Parker Called me and stated they will recieved back the patient once the K level is 3.6 , notified Dr Goel and ordered STAT BMP once im done for all potassium infusion charge nurse and Lisa notified , will do will call for ambulance jewels salvador
[2020-02-23] MEDS: LORazepam 1mg tab ORAL PRN (18:30)
--- NOTE | 2020-02-23 19:24 | NUR ---
HAND-OFF: Report given to GULSHAN Avendaño rn.
--- NOTE | 2020-02-23 19:30 | NUR ---
NURSE NOTES: Pt. received from GULSHAN Hester. Pt. AAOx4, on room air, complaints of generalized back pain, will follow with appropriate pain interventions. Pt. with PICC SANTA no fluids running at this time, pt. acknowledged removing line connected to PICC line stating "I don't want it." Discussed importance of IV fluids and pt. continued to refuse reconnecting despite warning against risks. Colostomy intact. Mackay intact, draining yellow urine well. Bed is low and locked, side rails x3 up, bed alarm active, and call light in reach.
--- NOTE | 2020-02-23 19:40 | NUR ---
NURSE NOTES: Attempted to draw labs from PICC line, pt. refusing stating "I don't want that. I'm in pain." Attempted to give pain medication but pt. refusing pain medication. Charge nurse aware.
--- NOTE | 2020-02-23 19:45 | NUR ---
NURSE NOTES: Able to administer pain medication, able to draw labs at this point. Pt. still refusing to be reconnected to IV fluids. Charge nurse aware, will continue to monitor. Addendum: 02/23/20 at 2333 by Jarocho Blanco RN Incorrect time entered. Correct time at 1950
--- NOTE | 2020-02-23 19:45 | NUR ---
NURSE NOTES: Patient noted to unhook iv from picc line, witnessed by previous nurse and shift manager nurse. Educated patient regarding IV potassium infusion, patient noted saying "I dont need any of that, I'm good." Patient is alert x 4. Patient refusing to have blood drawn. Called family to talk to patient. Patient to be discharged.
[2020-02-23] MEDS: Dyna-Hex 2% Top Sol 2oz TOPIC SCH (19:51)
[2020-02-23 20:22] LABS: ANION GAP 7 mmol/L (5-15); BLOOD UREA NITROGEN 8 mg/dL (7-18); CALCIUM 7.6 MG/DL (8.5-10.1); CARBON DIOXIDE 31 MMOL/L (21-32); CHLORIDE 102 MMOL/L (98-107); CREATININE 1.2 MG/DL (0.55-1.30); SODIUM 140 MMOL/L (136-145)
--- NOTE | 2020-02-23 20:30 | NUR ---
NURSE NOTES: Pt. discharged, report given to Onlywaylon Weston by previous nurse. Pt. leaving with dudley catheter and PICC line per MD orders. VS stable, belongings checked and verified to be returned with patient. ID band removed. Pt. refused wound pictures, charge aware. Dr. Abebe notified regarding pt.s potassium level. Dr. Abebe notified that pt. is refusing IV fluids and disconnecting IV line from PICC.
--- NOTE | 2020-02-27 14:26 | NUR ---
*-* INSURANCE *-* DISCHARGE SUMMARY HAS BEEN FAXED TO: TASHA Vogel Ref#[id number] #[phone] fax#[phone]
== END 2020-02-23 20:30 | DRG 469 ==
LOC: EDUNIT# 13:18 → EDBD 13:18 → EMR 13:41 → EDBEDREQ 14:14 → INTOOBSV 14:53 → 4E 14:53 → EDBEDREQ 15:11 → 2E 20:42 → OBSVTOIN 02-19 15:00 → 4E 02-20 02:28
PROC: 02HV33Z Insertion of Infusion Device into Superior Vena Cava, Percutaneous Approach (ICD-10-PCS; principal; 2020-02-21)
DX: N17.9 Acute kidney failure, unspecified (principal); L89.154 Pressure ulcer of sacral region, stage 4; E46 Unspecified protein-calorie malnutrition; Z86.19 Personal history of other infectious and parasitic diseases; R50.9 Fever, unspecified; E87.6 Hypokalemia; F41.8 Other specified anxiety disorders; F32.9 Major depressive disorder, single episode, unspecified; D64.9 Anemia, unspecified; N39.0 Urinary tract infection, site not specified; B96.89 Other specified bacterial agents as the cause of diseases classified elsewhere
CPT/HCPCS: 36415; 36569; 71045; 74018; 76937; 80048; 80053; 80307; 81003; 82270; 82550; 82553; 82962; 83605; 83690; 83735; 84100; 84484; 85007; 85025; 86850; 86900; 86901; 87040; 87086; 87181; 87324; 87496; 87635; 93005; 96361; 96374; 96375; 99285; J2405; J2765; J8499